=== PATIENT | male | born 1955 | race Caucasian/White ===

== ENCOUNTER 2017-02-06 06:45 | Day surgery (SDC) | payer BC ==
[~2017-02-06] VITALS: Ht 171.4 cm; Wt 106.7 kg
[~2017-02-06 06:45] MED LIST: ALBU8.5H5 IH; AMLO10TA2 PO; ASPI-728 PO; CARV25TA33 PO; CLOP75TA33 PO; ESOM40CA24 PO; FURO-35 PO; LORA-326 PO; LOSA50TA17 PO; MONT10TA15 PO; MULT-795 PO; NITR0.4T38 SL; SERT-104 PO; SIMV20TA89 PO; VITA1CAP65 PO
--- OUTSIDE RECORDS SUMMARY | 2017-02-06 06:49 | XMS REPORT | Referral Summary ---
Author Author [facility] [employer] Organization [facility] [place] Address Unknown Phone Unavailable Care Team Providers Care Town Marshal Name Role Phone Dena Muse Primary Care Physician [phone] Encounter Date(s): 08/17/15 - 08/17/15 [facility] [place] [address] [place], [place] [address] Discharge Disposition: 01-Home or Self Care Attending Physician: Ty Hwang MD Admitting Physician: Ty Hwang MD Referring Physician: Hola Heredia MD Vital Signs No data available for this section Problem List Condition Effective Dates Status Health Status Informant Allergic rhinitis Active (disorder)(Confirmed ) Angina(Confirmed) Resolved Arthritis(Confirmed) Resolved Asthma without Active status asthmaticus (disorder)(Confirmed ) Asthma(Confirmed) Resolved Benign essential Active hypertension (disorder)(Confirmed ) CAD - Coronary Resolved artery disease(Confirmed) Cardiac Resolved catheterization(Conf irmed) Cardiomyopathy(Confi Active rmed) Cortical senile Resolved cataract(Confirmed) Depression(Confirmed Resolved ) Dilated Resolved cardiomyopathy(Confi rmed) Eardrum, repair Resolved left(Confirmed) Gastroesophageal Active reflux disease (disorder)(Confirmed ) GERD(Confirmed) Resolved Glaucoma Resolved suspect(Confirmed) H/O chest < 05/21/14 Resolved pain(Confirmed) Hay fever(Confirmed) < 07/21/14 Resolved Hyperlipidemia(Confi Resolved rmed) Hypertension(Confirm Resolved ed) Impotence of organic Resolved origin (disorder)(Confirmed ) Moderate persistent Active allergic asthma(Confirmed) Obesity(Confirmed) Active patient Pigmentary glaucoma Active (disorder)(Confirmed ) Pinning, lt femur Resolved fx(Confirmed) PREGLAUCOMA, < 07/27/15 Resolved UNSPECIFIED(Confirme d) POAG (primary Active open-angle glaucoma)(Confirmed) Pure Active hypercholesterolemia (disorder)(Confirmed ) Seasonal Resolved allergies(Confirmed) Shoulder Resolved repair(Confirmed) Zonular cataract, Resolved cortical lamellar(Confirmed) Allergies, Adverse Reactions, Alerts No Known Medication Allergies Medications aspirin 81 mg oral tablet 81 mg 1 tabs, Oral, Daily, # 30 tabs, 0 Refill(s), other reason (Rx) Start Date: 02/08/16 Status: Ordered carvedilol 25 mg oral tablet 50 mg 2 tabs, Oral, BID, # 1 tabs, 0 Refill(s), other reason (Rx) Start Date: 02/08/16 Status: Ordered Centrum Silver oral tablet 1 tabs, Oral, Daily, # 30 tabs, 0 Refill(s) Start Date: 04/28/14 Status: Ordered clopidogrel 75 mg oral tablet 75 mg 1 tabs, Oral, Daily, # 30 tabs, 0 Refill(s), other reason (Rx) Start Date: 02/08/16 Status: Ordered Cozaar 100 mg oral tablet 100 mg 1 tabs, Oral, Daily, # 90 tabs, 1 Refill(s), Pharmacy: [facility] , 1 tabs Oral Daily Start Date: 12/04/15 Status: Ordered doxycycline hyclate 100 mg oral capsule 100 mg 1 caps, Oral, BID, # 20 caps, 0 Refill(s), Pharmacy: [facility] [id number], 1 caps Oral BID Start Date: 02/23/16 Stop Date: 03/24/16 Status: Ordered Dulera 200 mcg-5 mcg/inh inhalation aerosol See Instructions, 2 puffs Inhalation BID,Instr:DUE FOR APPT WITH DR MUSE, # 13 g, eRx: [id number], 2 puffs Inhalation BID,Instr:DUE FOR APPT WITH DR MUSE Start Date: 02/09/16 Status: Ordered fluticasone 50 mcg/inh nasal spray 2 sprays, Nasal, BID, # 16 g, 0 Refill(s), other reason (Rx) Start Date: 02/08/16 Status: Ordered furosemide 20 mg oral tablet 20 mg 1 tabs, Oral, Daily, # 30 tabs, 3 Refill(s), Pharmacy: [facility], 1 tabs Oral Daily Start Date: 12/09/15 Status: Ordered Imdur 30 mg oral tablet, extended release 30 mg 1 tabs, Oral, qAM, # 90 tabs, 1 Refill(s), Pharmacy: [facility]28, 1 tabs Oral qAM Start Date: 12/16/15 Status: Ordered montelukast 10 mg oral tablet 10 mg 1 tabs, Oral, qPM, # 30 tabs, 0 Refill(s), other reason (Rx) Start Date: 02/08/16 Status: Ordered NexIUM 40 mg oral powder for reconstitution, delayed release 40 mg 1 Each, Oral, Daily, # 1 Each, 0 Refill(s), other reason (Rx) Start Date: 02/08/16 Status: Ordered Nitrostat 0.4 mg sublingual tablet 0.4 mg 1 tabs, SubLingual, q5min, as needed for chest pain, # 1 bottles, 11 Refill(s), Pharmacy: [facility]28, 1 tabs SubLingual q5min,PRN:as needed for chest pain Start Date: 02/08/16 Status: Ordered Plavix 75 mg oral tablet 75 mg 1 tabs, Oral, Daily, # 30 tabs, 0 Refill(s) Start Date: 02/08/16 Status: Ordered ProAir HFA 90 mcg/inh inhalation aerosol See Instructions, 2 puffs Inhalation q4hr,Instr:FOR PRN USE PATIENT DUE FOR APPT WITH DR MUSE, # 1 Each, eRx: [facility]28, 2 puffs Inhalation q4hr,Instr:FOR PRN USE PATIENT DUE FOR APPT WITH DR MUSE Start Date: 02/03/16 Status: Ordered simvastatin 20 mg oral tablet 20 mg 1 tabs, Oral, Bedtime (once a day), # 30 tabs, 0 Refill(s), other reason ( Rx) Start Date: 02/08/16 Status: Ordered Spiriva 18 mcg inhalation capsule 18 mcg 1 Each, Inhalation, Daily, # 30 Each, 3 Refill(s), Pharmacy: [facility], 1 Each Inhalation Daily Start Date: 12/09/15 Status: Ordered Super B Complex 1 tabs, Oral, Daily, 0 Refill(s) Start Date: 04/28/14 Status: Ordered Trusopt 2% ophthalmic solution See Instructions, INSTILL 1 DROP INTO THE RIGHT EYE THREE TIMES A DAY, # 10 unknown unit, 11 Refill(s), eRx: [facility] #[id number], INSTILL 1 DROP INTO THE RIGHT EYE THREE TIMES A DAY Start Date: 09/23/14 Status: Ordered Zoloft 100 mg oral tablet 100 mg 1 tabs, Oral, Daily, # 90 tabs, 1 Refill(s), Pharmacy: [id number], 1 tabs Oral Daily Start Date: 12/16/15 Status: Ordered ZyrTEC Daily, 0 Refill(s) Start Date: 06/18/15 Status: Ordered Results No data available for this section Immunizations Vaccine Date Refusal Reason tetanus/diphth/pertuss (Tdap) adult/adol 12/31/13 influenza virus vaccine, inactivated1 09/25/14 influenza virus vaccine, live 11/19/12 pneumococcal 23-polyvalent vaccine 08/16/10 pneumococcal 23-polyvalent vaccine 09/05/05 pneumococcal 23-polyvalent vaccine 04/20/00 tetanus-diphth toxoids (Td) adult/adol 08/20/03 tetanus-diphth toxoids (Td) adult/adol 04/20/00 1Result Comment: [09/25/2014] see scanned document Procedures Procedure Date Related Diagnosis Body Site Cardiac catheterization1, 2 2013 Shoulder repair, left 1988 Pinning,femur fx, left 1986 Eardrum, repair left 1Coronary artery catheterization on 06/26/14. See description on note of . 2Prior cardiac catheterization in 2009. Social History Social History Type Response Smoking Status Never smoker Assessment and Plan No data available for this section
--- OUTSIDE RECORDS SUMMARY | 2017-02-06 06:49 | XMS REPORT | Referral Summary ---
Author Author [facility] Organization [facility] Address Unknown Phone Unavailable Care Team Providers Care Dump Motor Operator Name Role Phone Dena Muse Primary Care Physician [phone] Encounter Date(s): 03/31/16 - 03/31/16 [facility] [address] [place], [place] [address] Discharge Diagnosis: Shortness of breath Discharge Diagnosis: Bronchiectasis Discharge Diagnosis: Asthma Discharge Disposition: 01-Home or Self Care Attending Physician: Neil Mehta MD Admitting Physician: Neil Mehta MD Vital Signs Most recent to 1 oldest [Reference Range]: Peripheral Pulse 74 bpm Rate [60-100 bpm] (03/31/16 2:46 PM) Respiratory Rate 22 br/min [14-20 br/min] *HI* (03/31/16 2:46 PM) Blood Pressure 130/72 mmHg [90-140/60-90 mmHg] (03/31/16 2:46 PM) SpO2 95 % (03/31/16 2:46 PM) Problem List Condition Effective Dates Status Health [...] Daily, # 90 tabs, 1 Refill(s), Pharmacy: [facility] 2428, 1 tabs Oral Daily Start Date: 03/07/16 Status: Ordered Dulera 200 mcg-5 mcg/inh inhalation aerosol 2 puffs, Inhalation, BID, # 13 g, 6 Refill(s), Pharmacy: [facility] 2428 Start Date: 03/31/16 Status: Ordered fluticasone 50 mcg/inh nasal spray 2 sprays, Nasal, BID, # 16 g, 0 Refill(s), other reason (Rx) Start Date: 02/08/16 Status: Ordered furosemide 20 mg oral tablet 20 mg 1 tabs, Oral, Daily, # 30 tabs, 3 Refill(s), Pharmacy: [facility], 1 tabs Oral Daily Start Date: 12/09/15 Status: Ordered montelukast 10 mg oral tablet [...] pain, # 1 bottles, 11 Refill(s), Pharmacy: [facility] 2428, 1 tabs SubLingual q5min,PRN:as needed for chest pain Start Date: 02/08/16 Status: Ordered ProAir HFA 90 mcg/inh inhalation aerosol See Instructions, 2 puffs Inhalation q4hr,Instr:FOR PRN USE PATIENT DUE FOR APPT WITH DR MUSE, # 1 Each, 3 Refill(s), Pharmacy: [facility] 242 Start Date: 03/28/16 Status: Ordered simvastatin 20 mg oral tablet 20 mg 1 tabs, Oral, Bedtime (once a day), # 30 tabs, 0 Refill(s), other reason ( Rx) Start Date: 02/08/16 Status: Ordered Super B Complex 1 tabs, Oral, Daily, 0 Refill(s) Start Date: 04/28/14 Status: Ordered Trusopt 2% ophthalmic solution See Instructions, INSTILL 1 DROP INTO THE RIGHT EYE THREE TIMES A DAY, # 10 unknown unit, 11 Refill(s), eRx: [facility] #[id number], INSTILL 1 DROP INTO THE RIGHT EYE THREE TIMES A DAY Start Date: 09/23/14 Status: Ordered Zoloft 100 mg oral tablet 100 mg 1 tabs, Oral, Daily, # 90 tabs, 1 Refill(s), Pharmacy: [facility] 2427, 1 tabs Oral Daily Start Date: 12/16/15 [...] Smoking Status Never smoker Assessment and Plan Extracted from: Title: Office Visit Note Author: Neil Mehta Date: 03/31/16 Steven COLE Assessment/Plan 1.Asthma Continue with the Dulera 2.Bronchiectasis Evidence of bronchiectasis andtree and budpattern the bases raising concern foraspiration howeveraspiration by evaluation was negative. For that reason we will assess the patient with a bronchoscopy to rule out an atypical infectionsuch as a mycobacterial atypical infection. Procedure indication contraindication and alternatives were explained to patient patient verbalized understanding and is willing to proceed. Additionally will have the patientworked up forimmune deficiency with an IgG IgM and IgA levels 3.Shortness of breath Secondary to the bronchiectasis and infiltrate at the bases Orders: mometasone-formoterol, 2 puffs, Inhalation, BID, # 13 g, 6 Refill(s), Pharmacy: [facility] [id number]
--- OUTSIDE RECORDS SUMMARY | 2017-02-06 06:49 | XMS REPORT | Referral Summary ---
Author Author [facility] Organization [facility] Address Unknown Phone Unavailable Care Team Providers Care Laboratory Director Name Role Phone Dena Muse Primary Care Physician [phone] Encounter [facility] [id number] Date(s): 03/10/16 - 03/10/16 [facility] [address] [place], [place] [address] Discharge Diagnosis: Asthma Discharge Diagnosis: Recurrent pneumonia Discharge Diagnosis: Wheezing Discharge Disposition: 01-Home or Self Care Attending Physician: Neil Mehta MD Admitting Physician: Neil Mehta MD Referring Physician: Moose Muse MD Vital Signs Most recent to 1 oldest [Reference Range]: Temperature Tympanic 36.2 degC [36.6-38.1 degC] *LOW* (03/10/16 2:22 PM) Peripheral Pulse 73 bpm Rate [60-100 bpm] (03/10/16 2:22 PM) Blood Pressure 146/76 mmHg [90-140/60-90 mmHg] *HI* (03/10/16 2:22 PM) SpO2 94 % (03/10/16 2:22 PM) Problem List Condition Effective Dates Status [...] Reactions, Alerts No Known Medication Allergies Medications Asmanex HFA 200 mcg/inh inhalation aerosol 2 puffs, Inhalation, BID, # 1 Each, 0 Refill(s), samples given to patient (Rx) Start Date: 03/10/16 Status: Ordered aspirin 81 mg oral tablet 81 mg [...] Daily, # 90 tabs, 1 Refill(s), [id number], 1 tabs Oral Daily Start Date: 03/07/16 Status: Ordered fluticasone 50 mcg/inh nasal spray 2 sprays, Nasal, BID, # 16 g, 0 Refill(s), other reason (Rx) Start Date: 02/08/16 Status: Ordered furosemide 20 mg oral tablet 20 mg 1 tabs, Oral, Daily, # 30 tabs, 3 Refill(s), Pharmacy: [facility], 1 tabs Oral Daily Start Date: 12/09/15 [...] pain, # 1 bottles, 11 Refill(s), Pharmacy: [facility] 2428, 1 tabs SubLingual q5min,PRN:as needed for chest pain Start Date: 02/08/16 Status: Ordered Plavix 75 mg oral tablet 75 mg 1 tabs, Oral, Daily, # 30 tabs, 0 Refill(s) Start Date: 02/08/16 Status: Ordered ProAir HFA 90 mcg/inh inhalation aerosol See Instructions, 2 puffs Inhalation q4hr,Instr:FOR PRN USE PATIENT DUE FOR APPT WITH DR MUSE, # 1 Each, eRx: [facility] 2428, 2 puffs Inhalation q4hr,Instr:FOR PRN [...] Daily, # 30 Each, 3 Refill(s), Pharmacy: [facility], 1 Each Inhalation Daily Start Date: 12/09/15 Status: Ordered Super B Complex 1 tabs, Oral, Daily, 0 Refill(s) Start Date: 04/28/14 Status: Ordered Trusopt 2% ophthalmic solution See Instructions, INSTILL 1 DROP INTO THE RIGHT EYE THREE TIMES A DAY, # 10 unknown unit, 11 Refill(s), eRx: [facility] #[id number], INSTILL 1 DROP INTO THE RIGHT EYE THREE TIMES A DAY Start Date: 09/23/14 Status: Ordered Zoloft 100 mg oral tablet 100 mg 1 tabs, Oral, Daily, # 90 tabs, 1 Refill(s), Pharmacy: [facility] 2428, 1 tabs Oral Daily Start Date: 12/16/15 [...]
--- OUTSIDE RECORDS SUMMARY | 2017-02-06 06:49 | XMS REPORT | Referral Summary ---
Author Organization Unknown Address Unknown Phone Unavailable Care Team Providers Care Photoengraving Apprentice Name Role Phone Dena Muse Primary Care Physician [phone] Encounter RYANNE [id number] Date(s): 12/25/14 - 12/25/14 [facility], [facility], Opthalmology [address] [place], [place] [address] Discharge Diagnosis: Pigmentary glaucoma (disorder) Discharge Disposition: Home or Self Care Attending Physician: Rosana Arauz MD Admitting Physician: Rosana Arauz MD Vital Signs No data available for this section Problem List Condition Effective Dates Status Health Status Informant Allergies(Confirmed) Active Allergic rhinitis Active (disorder)(Confirmed ) Angina(Confirmed) Resolved Arthritis(Confirmed) Resolved Asthma(Confirmed) Resolved Asthma without Active status asthmaticus (disorder)(Confirmed ) Benign essential Active hypertension (disorder)(Confirmed ) CAD - Coronary Resolved artery disease(Confirmed) Cardiac Resolved catheterization(Conf irmed) Cardiomyopathy(Confi Active rmed) Congestive heart Active failure(Confirmed) Cortical senile Active cataract(Confirmed) Depression(Confirmed Resolved ) Dilated Resolved cardiomyopathy(Confi rmed) Eardrum, repair Resolved left(Confirmed) Gastroesophageal Active reflux disease (disorder)(Confirmed ) GERD(Confirmed) Resolved Glaucoma Active suspect(Confirmed) H/O chest Active pain(Confirmed) Hay fever(Confirmed) Active Hyperlipidemia(Confi Resolved rmed) Hypertension(Confirm Resolved ed) Erectile Active dysfunction(Confirme d) Impotence of organic Active origin (disorder)(Confirmed ) Obesity(Confirmed) Active patient Pigmentary glaucoma Active (disorder)(Confirmed ) Pinning, lt femur Resolved fx(Confirmed) PREGLAUCOMA, Resolved UNSPECIFIED(Confirme d) POAG (primary Active open-angle glaucoma)(Confirmed) Pure Active hypercholesterolemia (disorder)(Confirmed ) Seasonal Resolved allergies(Confirmed) Shoulder Resolved repair(Confirmed) Zonular cataract, Resolved cortical lamellar(Confirmed) Allergies, Adverse Reactions, Alerts No Known Medication Allergies Medications amLODIPine 2.5 mg oral tablet 1 tabs, Oral, Daily, # 30 tabs, 6 Refill(s), Pharmacy: [facility] #[id number] , 1 tabs Oral Daily Start Date: 06/27/14 Status: Ordered Centrum Silver oral tablet 1 tabs, Oral, Daily, # 30 tabs, 0 Refill(s) Start Date: 04/28/14 Status: Ordered Claritin 1 tabs, Oral, Daily, 0 Refill(s) Start Date: 04/28/14 Status: Ordered Coreg 25 mg oral tablet See Instructions, TAKE ONE TABLET BY MOUTH TWICE A DAY, # 180 tabs, 2 Refill(s) , eRx: [facility] #[id number], TAKE ONE TABLET BY MOUTH TWICE A DAY Special Instructions: TAKE ONE TABLET BY MOUTH TWICE A DAY Start Date: 09/11/14 Status: Ordered Cozaar 100 mg oral tablet See Instructions, TAKE ONE TABLET BY MOUTH DAILY, # 90 tabs, 1 Refill(s), eRx: [facility] #[id number], TAKE ONE TABLET BY MOUTH DAILY Special Instructions: TAKE ONE TABLET BY MOUTH DAILY Start Date: 12/08/14 Status: Ordered Dulera 200 mcg-5 mcg/inh inhalation aerosol See Instructions, INHALE TWO PUFFS INTO LUNGS TWICE A DAY, # 13 unknown unit, 5 Refill(s), eRx: [facility] #[id number], INHALE TWO PUFFS INTO LUNGS TWICE A DAY Special Instructions: INHALE TWO PUFFS INTO LUNGS TWICE A DAY Start Date: 12/19/14 Status: Ordered Ecotrin 325 mg oral delayed release tablet 1 tabs, Oral, Daily, 0 Refill(s) Start Date: 04/28/14 Status: Ordered Flonase 50 mcg/inh nasal spray See Instructions, PLACE 1 SPRAY IN EACH NOSTRIL DAILY, # 16 unknown unit, 2 Refill(s), eRx: [facility] #[id number], PLACE 1 SPRAY IN EACH NOSTRIL DAILY Special Instructions: PLACE 1 SPRAY IN EACH NOSTRIL DAILY Start Date: 11/12/14 Status: Ordered fluorometholone acetate 0.1% ophthalmic suspension See Instructions, After procedure use 1 drop QID in surgical eye for 1 week then discontinue., # 5 mL, 1 Refill(s), Pharmacy: [facility] #[id number] Special Instructions: After procedure use 1 drop QID in surgical eye for 1 week then discontinue. Start Date: 12/15/14 Stop Date: 01/02/15 Status: Ordered furosemide 20 mg oral tablet See Instructions, TAKE ONE TABLET BY MOUTH DAILY, # 30 tabs, 2 Refill(s), eRx: [facility] #[id number], TAKE ONE TABLET BY MOUTH DAILY Special Instructions: TAKE ONE TABLET BY MOUTH DAILY Start Date: 10/06/14 Status: Ordered Imdur 30 mg oral tablet, extended release 1 tabs, Oral, qAM, DUE FOR APPT WITH DR MUSE, # 30 tabs, 1 Refill(s), Pharmacy: [facility] #[id number], 1 tabs Oral qAM,x30 days,Instr:DUE FOR APPT WITH DR MUSE Special Instructions: DUE FOR APPT WITH DR MUSE Start Date: 12/22/14 Stop Date: 02/20/15 Status: Ordered NexIUM 40 mg oral delayed release capsule 1 caps, Oral, Daily, APPROVED 12/15/14 CASE# [id number], # 30 caps, 4 Refill(s), eRx : [facility] #[id number], TAKE ONE CAPSULE BY MOUTH EVERY DAY Special Instructions: APPROVED 12/15/14 CASE# [id number] Start Date: 10/21/14 Status: Ordered Nitrostat 0.4 mg sublingual tablet 1 tabs, SubLingual, q5min, as needed for chest pain, # 100 tabs, 0 Refill(s) Start Date: 04/28/14 Status: Ordered ProAir HFA 90 mcg/inh inhalation aerosol See Instructions, INHALE TWO PUFFS INTO LUNGS EVERY 4 HOURS NEEDED., # 8.5 unknown unit, 1 Refill(s), eRx: [facility] #[id number], INHALE TWO PUFFS INTO LUNGS EVERY 4 HOURS NEEDED. Special Instructions: INHALE TWO PUFFS INTO LUNGS EVERY 4 HOURS NEEDED. Start Date: 11/21/14 Status: Ordered simvastatin 20 mg oral tablet 1 tabs, Oral, Bedtime (once a day), # 30 tabs, 6 Refill(s), Pharmacy: [facility] #[id number], 1 tabs Oral Bedtime (once a day) Start Date: 08/25/14 Status: Ordered Singulair 10 mg oral tablet See Instructions, TAKE ONE TABLET BY MOUTH ONCE A DAY, # 90 tabs, 1 Refill(s), eRx: [facility] #[id number], TAKE ONE TABLET BY MOUTH ONCE A DAY Special Instructions: TAKE ONE TABLET BY MOUTH ONCE A DAY Start Date: 12/19/14 Status: Ordered Spiriva 18 mcg inhalation capsule See Instructions, INHALE THE CONTENTS OF ONE CAPSULE INTO LUNGS ONCE DAILY, USE 2 INHALATIONS FOR EACH DOSE, # 30 caps, 5 Refill(s), eRx: [facility] # [id number], INHALE THE CONTENTS OF ONE CAPSULE INTO LUNGS ONCE DAILY, USE 2 INHALATIONS FOR EACH DOSE Special Instructions: INHALE THE CONTENTS OF ONE CAPSULE INTO LUNGS ONCE DAILY, USE 2 INHALATIONS FOR EACH DOSE Start Date: 10/13/14 Status: Ordered Super B Complex 1 tabs, Oral, Daily, 0 Refill(s) Start Date: 04/28/14 Status: Ordered Trusopt 2% ophthalmic solution See Instructions, INSTILL 1 DROP INTO THE RIGHT EYE THREE TIMES A DAY, # 10 unknown unit, 11 Refill(s), eRx: [facility] #[id number], INSTILL 1 DROP INTO THE RIGHT EYE THREE TIMES A DAY Special Instructions: INSTILL 1 DROP INTO THE RIGHT EYE THREE TIMES A DAY Start Date: 09/23/14 Status: Ordered Zoloft 100 mg oral tablet See Instructions, TAKE ONE TABLET BY MOUTH EVERY DAY, # 45 tabs, 5 Refill(s), eRx: [facility] #[id number], TAKE ONE TABLET BY MOUTH EVERY DAY Special Instructions: TAKE ONE TABLET BY MOUTH EVERY DAY Start Date: 12/19/14 Status: Ordered Results No data available for this section Immunizations Vaccine Date Refusal Reason tetanus/diphth/pertuss (Tdap) adult/adol 12/31/13 influenza virus vaccine, inactivated1 09/25/14 influenza virus vaccine, live 11/19/12 pneumococcal 23-polyvalent vaccine 08/16/10 pneumococcal 23-polyvalent vaccine 09/05/05 pneumococcal 23-polyvalent vaccine 04/20/00 tetanus-diphth toxoids (Td) adult/adol 08/20/03 tetanus-diphth toxoids (Td) adult/adol 04/20/00 1Result Comment: [09/25/2014] see scanned document Procedures Procedure Date Related Diagnosis Body Site Trabeculoplasty by laser surgery, 1 or more 12/25/14 sessions (defined treatment series) Cardiac catheterization1, 2 2013 Shoulder repair, left 1988 Pinning,femur fx, left 1986 Eardrum, repair left 1Coronary artery catheterization on 06/26/14. See description on note of . 2Prior cardiac catheterization in 2009. Social History Social History Type Response Smoking Status Never smoker Assessment and Plan Extracted from: Title: Ambulatory Patient Education Author: Rosana Arauz MD Date: 12/25/14 Ophthalmology Glaucoma Glaucoma is a condition of high pressure inside the eyes. There are several forms of glaucoma. The pressure in the eye is raised because fluid (aqueous ) within the eye can not get out through the normal drainage system. Below are the different forms of glaucoma. Chronic open-angle glaucoma . This is when the fluid in the eye cannot get through the drainage system. It usually affects both eyes. The best way to understand chronic open angle glaucoma is to think of the tires on your car. When they are over-inflated with air, the light truck driver is not aware that there is a problem. However, the rubber on the tires is being worn out faster than normal. Similarly, chronic high pressure in the eyes causes the nerves of the retina and optic nerve to be damaged. When this happens slowly and over time, there are no symptoms. Closed angle glaucoma or acute angle closure glaucoma . This is when the fluid in the eye cannot get to the drainage system. The pressure in the eye rises very high (3 to 4 times normal). This causes extreme pain and vision loss in the affected eye. Attacks are sudden and often happen in one eye at a time. However, they can happen in both at the same time. If there is an attack of acute angle closure in one eye, the risk of an attack in the other eye is very high. Primary glaucoma . This term is used when glaucoma is not caused by another disease. CAUSES Chronic Open Angle Glaucoma This form is not usually related to other diseases (primary ). However, there are forms of this type of glaucoma that are related to other diseases ( secondary ) including: Congenital glaucoma. This means that you are born with the disease. Certain diseases of the eye (inflammation, some types of cataracts and lens changes, having too much pigment in the eyes, certain diseases of the cornea and tumors of the eye). Certain drugs and eye drops. Traumatic injuries. Abnormal blood vessels that form as a result of other diseases, especially diabetes. Certain other diseases in the body. Acute Angle Closure Glaucoma Far-sightedness (hyperopia ). The eyes are usually shorter in length and have a narrower anatomic opening to the drainage system inside the eye. Drugs that cause dilation of the pupils as a side affect. Always check the label of drugs for warnings about the risk of glaucoma with their use. Certain eye drops that can enlarge (dilate ) the pupils. This is true even with drops used in the doctors office to look at your eyes. SYMPTOMS Chronic Open Angle Glaucoma Early in the disease there are no symptoms at all. If left untreated, the disease will get worse. The following symptoms may happen: Loss of side vision usually near the nose. This symptom is rarely noticed by people with chronic open angle glaucoma. By the time this happens, the disease is usually well advanced. Steady loss of side vision in all directions progressing to "tunnel vision. " This is like looking through a toilet roll tube and only being able to see what is in the center of whatever you are looking at. Eventual total loss of vision in the affected eye(s) Acute Angle Closure Glaucoma Severe pain in the affected eye associated with clouded vision. Severe headache in the area around the eye. Feeling sick to your stomach (nausea ) and throwing up (vomiting ). DIAGNOSIS Primary Chronic Open Angle Glaucoma This form of glaucoma has no symptoms until very late in the disease. Therefore , it is detected only during an eye exam by an advertising specialist. It is important to have your eyes looked at by a specialist at least once a year after the age of 40. If the pressure in the eye is high, it does not necessarily mean that there is glaucoma. In such cases, an rotary operator may choose to follow the eye pressures carefully over a period of time. They may not begin treatment until other signs of actual damage appear. Some of the secondary open angle glaucomas do cause symptoms. In congenital glaucoma for instance, new born babies eyes can be enlarged. The baby may cry all of the time due to the pain of the increased pressure. Acute Angle Closure Glaucoma People with this type of glaucoma need to get help right away when the attack comes on because it is so painful. The diagnosis is made by an eye exam by an rotary operator. He or she will measure the pressure in the affected eye(s). TREATMENT Primary Chronic Open Angle Glaucoma Eye drops and medicine by mouth (oral ), alone or in combination, may be given. This depends on the how bad the disease is and the degree of damage. Laser treatments may help in more severe cases. Surgery may be needed. Acute Angle Closure Glaucoma is treated very aggressively. The longer the attack lasts, the greater the chance of permanent vision loss. Generally, it is important to get the pressure under control within 24 hours. This is to avoid permanent damage to the affected eye. Powerful eye drop medication may be used as often as every 10 minutes. Medicine given by mouth, injection or through the vein (intravenously ). These medicines are used to both open the blockage to the eye's drainage system and to lessen the production of the fluid inside the eye. After pressure is controlled and to avoid future attacks in both the same eye and the unaffected eye, surgery is needed to make a permanent small opening in the colored portion of the eye (iris ). This allows the aqueous fluid to have lasting access to the eye's internal drainage system. This surgery can be done in the hospital, or it can be performed in an outpatient setting using a laser. SEEK MEDICAL CARE IF: You are over 40 years of age and have never had your eye pressure measured. You have sudden, severe pain in one eye associated with drop in vision. You have a headache, feel sick to your stomach (nausea ) and throw up ( vomit ). SEEK IMMEDIATE MEDICAL CARE IF: You develop severe pain in the affected eye. You have problems with your vision. You have a bad headache in the area around the eye. You develop nausea and vomiting. You have the same or similar symptoms in the other eye. Document Released: 10/30/2006 Document Revised: 04/30/2013 Document Reviewed: ExitCare Patient Information 2014 [employer]. No follow up information was provided. Referrals to Other Providers Referred by: Rosana Arauz MD
--- OUTSIDE RECORDS SUMMARY | 2017-02-06 06:49 | XMS REPORT | Referral Summary ---
Author Author [facility] Organization [facility] Address Unknown Phone Unavailable Care Team Providers Care Director Project Management Name Role Phone Dena Muse Primary Care Physician [phone] Encounter [facility] [id number] Date(s): 06/18/15 - 06/18/15 [facility] Op[facility]mology [address] [place], [place] [address] Discharge Diagnosis: Glaucoma, pigmentary Discharge Diagnosis: Cortical senile cataract Discharge Diagnosis: Glaucoma suspect Discharge Disposition: 01-Home or Self Care Attending Physician: Rosana Arauz [...] Impotence of organic Resolved origin (disorder)(Confirmed ) Obesity(Confirmed) Active patient Pigmentary glaucoma Active (disorder)(Confirmed ) Pinning, lt femur Resolved fx(Confirmed) PREGLAUCOMA, < 07/27/15 Resolved UNSPECIFIED(Confirme d) POAG (primary Active open-angle glaucoma)(Confirmed) Pure Active hypercholesterolemia (disorder)(Confirmed ) Seasonal Resolved allergies(Confirmed) Shoulder Resolved repair(Confirmed) Zonular cataract, Resolved cortical lamellar(Confirmed) Allergies, Adverse Reactions, Alerts No Known Medication Allergies Medications amLODIPine 2.5 mg oral tablet 2.5 mg 1 tabs, Oral, Daily, # 30 tabs, 2 Refill(s), Pharmacy: [facility] # [id number], 1 tabs Oral Daily Start Date: 07/23/15 Status: Ordered carvedilol 25 mg oral tablet 25 mg 1 tabs, Oral, TID, # 60 tabs, 5 Refill(s), Pharmacy: [facility] # [id number], 1 tabs Oral TID Start Date: 08/12/15 Status: Ordered Centrum Silver oral tablet 1 tabs, Oral, Daily, # 30 tabs, 0 Refill(s) Start Date: 04/28/14 Status: Ordered Coreg 25 mg oral tablet See Instructions, TAKE ONE TABLET BY MOUTH TWICE A DAY, # 180 tabs, eRx: [facility] #[id number], TAKE ONE TABLET BY MOUTH TWICE A DAY Start Date: 06/29/15 Status: Ordered Cozaar 100 mg oral tablet See Instructions, TAKE ONE TABLET BY MOUTH DAILY, # 90 tabs, 1 Refill(s), Pharmacy: [place] [id number], TAKE ONE TABLET BY MOUTH DAILY Start Date: 09/07/15 Status: Ordered Dulera 200 mcg-5 mcg/inh inhalation aerosol See Instructions, INHALE TWO PUFFS INTO LUNGS TWICE A DAY, # 13 unknown unit, 4 Refill(s), eRx: [facility] #[id number], INHALE TWO PUFFS INTO LUNGS TWICE A DAY Start Date: 08/31/15 Status: Ordered Ecotrin 325 mg oral delayed release tablet 1 tabs, Oral, Daily, 0 Refill(s) Start Date: 04/28/14 Status: Ordered furosemide 20 mg oral tablet See Instructions, TAKE ONE TABLET BY MOUTH DAILY, # 30 tabs, 4 Refill(s), eRx: [facility] #[id number], TAKE ONE TABLET BY MOUTH DAILY Start Date: 07/09/15 Status: Ordered Imdur 30 mg oral tablet, extended release 30 mg 1 tabs, Oral, qAM, # 90 tabs, 1 Refill(s), Pharmacy: [id number], 1 tabs Oral qAM Start Date: 09/17/15 Stop Date: 11/16/15 Status: Ordered NexIUM 40 mg oral delayed release capsule 40 mg 1 caps, Oral, Daily, APPROVED THRU 04/23/2016 APPROVAL# [id number], # 90 caps , 4 Refill(s), Pharmacy: [facility] #[id number], 1 caps Oral Daily,Instr: APPROVED THRU 04/23/2016 APPROVAL# [id number] Start Date: 04/30/15 Status: Ordered Nitrostat 0.4 mg sublingual tablet 1 tabs, SubLingual, q5min, as needed for chest pain, # 100 tabs, 0 Refill(s) Start Date: 04/28/14 Status: Ordered ProAir HFA 90 mcg/inh inhalation aerosol See Instructions, INHALE TWO PUFFS INTO LUNGS EVERY 4 HOURS NEEDED., # 1 Each , 6 Refill(s), Pharmacy: [facility] #[id number] Start Date: 03/06/15 Status: Ordered simvastatin 20 mg oral tablet See Instructions, TAKE ONE TABLET BY MOUTH EVERY NIGHT AT BEDTIME, # 30 tabs, 8 Refill(s), eRx: [facility] #[id number], TAKE ONE TABLET BY MOUTH EVERY NIGHT AT BEDTIME Start Date: 03/24/15 Status: Ordered Singulair 10 mg oral tablet See Instructions, TAKE ONE TABLET BY MOUTH ONCE A DAY, # 90 tabs, 1 Refill(s), eRx: [facility] #[id number], TAKE ONE TABLET BY MOUTH ONCE A DAY Start Date: 06/17/15 Status: Ordered Spiriva 18 mcg inhalation capsule See Instructions, INHALE THE CONTENTS OF ONE CAPSULE INTO LUNGS ONCE DAILY, USE 2 INHALATIONS FOR EACH DOSE, # 30 caps, 6 Refill(s), Pharmacy: [id number], INHALE THE CONTENTS OF ONE CAPSULE INTO LUNGS ONCE DAILY, USE 2 INHALATIONS FOR EACH... Start Date: 09/07/15 Status: Ordered Super B Complex 1 tabs, Oral, Daily, 0 Refill(s) Start Date: 04/28/14 Status: Ordered Trusopt 2% ophthalmic solution See Instructions, INSTILL 1 DROP INTO THE RIGHT EYE THREE TIMES A DAY, # 10 unknown unit, 11 Refill(s), eRx: [facility] #[id number], INSTILL 1 DROP INTO THE RIGHT EYE THREE TIMES A DAY Start Date: 09/23/14 Status: Ordered Zoloft 100 mg oral tablet 100 mg 1 tabs, Oral, Daily, # 90 tabs, 1 Refill(s), Pharmacy: [id number], 1 tabs Oral Daily Start Date: 09/07/15 Status: Ordered ZyrTEC Daily, 0 Refill(s) Start [...] Patient Education Author: Rosana Arauz MD Date: 06/18/15 Ophthalmology Glaucoma Glaucoma happens when the fluid pressure in the eyeball is too high. The pressure cannot stay high for too long, or the eyeball may become damaged. Signs of glaucoma include: Having a hard time seeing in a dark room after being in a bright one. Having trouble seeing things out to the sides of you. Blurry sight. Seeing bright white lights or colors in front of your eyes. Headaches. Feeling sick to your stomach (nauseous) or throwing up (vomiting). Sudden vision loss. Glaucoma testing is an important part of taking care of your eyesight. HOME CARE Always use your eyedrops or pills as told by your doctor. Do not run out. Do not go away from home without your eyedrops or pills. Keep your appointments. Always tell a new doctor that you have glaucoma and how long you have had it. Tell the doctor about the eyedrops and pills you take. Do not use eyedrops or pills that have not been prescribed by your doctor. GET HELP RIGHT AWAY IF: You develop severe pain in the affected eye. You develop vision problems. You develop a bad headache in the area around the eye. You feel sick to your stomach or throw up. You start to have problems with the other eye. MAKE SURE YOU: Understand these instructions. Will watch your condition. Will get help right away if you are not doing well or get worse. Document Released: 08/08/2009 Document Revised: 01/21/2013 Document Reviewed: ExitCare Patient Information 2015 [employer]. This information is not intended to replace advice given to you by your health care provider. Make sure you discuss any questions you have with your health care provider. No follow up information was provided. Referrals to Other Providers Referred by: Rosana Arauz MD
--- OUTSIDE RECORDS SUMMARY | 2017-02-06 06:49 | XMS REPORT | Referral Summary ---
Author Author [facility] Organization [facility] Address Unknown Phone Unavailable Care Team Providers Care Patient Transition Specialist Name Role Phone Dena Muse Primary Care Physician [phone] Encounter VC Date(s): 10/14/15 - 10/14/15 [facility] [address] [place] [address] Discharge Disposition: 01-Home or Self Care Attending Physician: Aidan Camejo APRN Admitting Physician: Aidan Camejo APRN Vital Signs Most recent to 1 oldest [Reference Range]: Peripheral Pulse 73 bpm Rate [60-100 bpm] (10/14/15 4:06 PM) Blood Pressure 138/80 mmHg [90-140/60-90 mmHg] (10/14/15 4:06 PM) SpO2 97 % (10/14/15 4:06 PM) Problem List Condition Effective Dates Status [...] Resolved Glaucoma Resolved suspect(Confirmed) H/O chest < 7/14 Resolved pain(Confirmed) Hay fever(Confirmed) < //14 Resolved Hyperlipidemia(Confi Resolved rmed) Hypertension(Confirm Resolved ed) [...] Daily, # 30 tabs, 2 Refill(s), Pharmacy: [facility] # [id number], 1 tabs Oral Daily Start Date: 07/23/15 Status: Ordered carvedilol 25 mg oral tablet 25 mg 1 tabs, Oral, TID, # 60 tabs, 5 Refill(s), Pharmacy: [facility] # [id number], 1 tabs Oral TID Start Date: 08/12/15 Status: Ordered cefdinir 300 mg oral capsule 300 mg 1 caps, Oral, q12hr, X 10 days, # 20 caps, 0 Refill(s), Pharmacy: [place] [id number], 1 caps Oral q12hr,x10 days Start Date: 10/14/15 Stop Date: 10/24/15 Status: Ordered Centrum Silver oral tablet 1 tabs, Oral, Daily, # 30 tabs, 0 Refill(s) Start Date: 04/28/14 Status: Ordered Coreg 25 mg oral tablet See Instructions, TAKE ONE TABLET BY MOUTH TWICE A DAY, # 180 tabs, eRx: [facility] #[id number], TAKE ONE TABLET BY MOUTH TWICE A DAY Start Date: 06/29/15 Status: Ordered Cozaar 100 mg oral tablet See Instructions, TAKE ONE TABLET BY MOUTH DAILY, # 90 tabs, 1 Refill(s), Pharmacy: [place] [id number], TAKE ONE TABLET BY MOUTH DAILY Start Date: 09/07/15 Status: Ordered Dulera 200 mcg-5 mcg/inh inhalation aerosol See Instructions, INHALE TWO PUFFS INTO LUNGS TWICE A DAY, # 13 unknown unit, 4 Refill(s), eRx: [facility] #[id number], INHALE TWO PUFFS INTO LUNGS TWICE A DAY Start Date: 08/31/15 Status: Ordered Ecotrin 325 mg oral delayed release tablet 1 tabs, Oral, Daily, 0 Refill(s) Start Date: 04/28/14 Status: Ordered furosemide 20 mg oral tablet See Instructions, TAKE ONE TABLET BY MOUTH DAILY, # 30 tabs, 4 Refill(s), eRx: [facility] #[id number], TAKE ONE TABLET BY MOUTH DAILY Start Date: 07/09/15 Status: Ordered Imdur 30 mg oral tablet, extended release 30 mg 1 tabs, Oral, qAM, # 90 tabs, 1 Refill(s), Pharmacy: [facility], 1 tabs Oral qAM Start Date: 09/17/15 Stop Date: 11/16/15 Status: Ordered NexIUM 40 mg oral delayed release capsule 40 mg 1 caps, Oral, Daily, APPROVED THRU 04/23/2016 APPROVAL# [id number], # 90 caps , 4 Refill(s), Pharmacy: [facility] #[id number], 1 caps Oral Daily,Instr: APPROVED THRU 04/23/2016 APPROVAL# [id number] Start Date: 04/30/15 Status: Ordered Nitrostat 0.4 mg sublingual tablet 1 tabs, SubLingual, q5min, as needed for chest pain, # 100 tabs, 0 Refill(s) Start Date: 04/28/14 Status: Ordered ProAir HFA 90 mcg/inh inhalation aerosol See Instructions, INHALE TWO PUFFS INTO LUNGS EVERY 4 HOURS NEEDED., # 1 Each , 6 Refill(s), Pharmacy: [facility] #[id number] Start Date: 03/06/15 Status: Ordered simvastatin 20 mg oral tablet See Instructions, TAKE ONE TABLET BY MOUTH EVERY NIGHT AT BEDTIME, # 30 tabs, 8 Refill(s), eRx: [facility] #[id number], TAKE ONE TABLET BY MOUTH EVERY NIGHT AT BEDTIME Start Date: 03/24/15 Status: Ordered Singulair 10 mg oral tablet See Instructions, TAKE ONE TABLET BY MOUTH ONCE A DAY, # 90 tabs, 1 Refill(s), eRx: [facility] #[id number], TAKE ONE TABLET BY MOUTH ONCE A DAY Start Date: 06/17/15 Status: Ordered Spiriva 18 mcg inhalation capsule See Instructions, INHALE THE CONTENTS OF ONE CAPSULE INTO LUNGS ONCE DAILY, USE 2 INHALATIONS FOR EACH DOSE, # 30 caps, 6 Refill(s), Pharmacy: [id number], INHALE THE CONTENTS OF ONE CAPSULE INTO LUNGS ONCE DAILY, USE 2 INHALATIONS FOR EACH... Start Date: 09/07/15 Status: Ordered Super B Complex 1 tabs, Oral, Daily, 0 Refill(s) Start Date: 04/28/14 Status: Ordered Trusopt 2% ophthalmic solution See Instructions, INSTILL 1 DROP INTO THE RIGHT EYE THREE TIMES A DAY, # 10 unknown unit, 11 Refill(s), eRx: [facility] #[id number], INSTILL 1 DROP INTO THE RIGHT EYE THREE TIMES A DAY Start Date: 09/23/14 Status: Ordered Zithromax Z-Khanh 250 mg oral tablet 1 packets, Oral, Daily, as directed on package labeling, X 5 days, # 6 tabs, 0 Refill(s), Pharmacy: [facility], 1 packets Oral Daily,x5 days,Instr: as directed on package labeling Start Date: 10/14/15 Stop Date: 10/19/15 Status: Ordered Zoloft 100 mg oral tablet 100 mg 1 tabs, Oral, Daily, # 90 tabs, 1 Refill(s), Pharmacy: [facility], 1 tabs Oral Daily Start Date: 09/07/15 [...]
--- OUTSIDE RECORDS SUMMARY | 2017-02-06 06:49 | XMS REPORT | Referral Summary ---
Author Author [facility] Organization [facility] Address Unknown Phone Unavailable Care Team Providers Care Allied Health Professional Name Role Phone Dena Muse Primary Care Physician [phone] Encounter Date(s): 04/30/15 - 04/30/15 [facility] [address] [place] [address] Discharge Diagnosis: Encounter for removal of sutures Discharge Diagnosis: GERD Discharge Diagnosis: Hyperlipidemia Discharge Diagnosis: Benign hypertension Discharge Disposition: 01-Home or Self Care Attending Physician: Moose Muse MD Admitting Physician: Moose Muse MD Vital Signs Most recent to 1 oldest [Reference Range]: Temperature Tympanic 36.7 degC [36.6-38.1 degC] (04/30/15 11:18 AM) Peripheral Pulse 68 bpm Rate [60-100 bpm] (04/30/15 11:18 AM) Blood Pressure 120/67 mmHg [90-140/60-90 mmHg] (04/30/15 11:18 AM) Problem List Condition Effective Dates Status Health [...] Resolved Glaucoma Resolved suspect(Confirmed) H/O chest < 7/9/14 Resolved pain(Confirmed) Hay fever(Confirmed) < 9//14 Resolved Hyperlipidemia(Confi Resolved rmed) Hypertension(Confirm Resolved ed) [...] mg 1 tabs, Oral, Daily, # 30 Each, 2 Refill(s), Pharmacy: [place] [id number], 1 tabs Oral Daily Start Date: 10/28/15 Status: Ordered carvedilol 25 mg oral tablet 25 mg 1 tabs, Oral, TID, # 60 tabs, 5 Refill(s), Pharmacy: [facility] # [id number], 1 tabs Oral TID Start Date: 08/12/15 Status: Ordered Centrum Silver oral tablet 1 tabs, Oral, Daily, # 30 tabs, 0 Refill(s) Start Date: 04/28/14 Status: Ordered Coreg 25 mg oral tablet See Instructions, TAKE ONE TABLET BY MOUTH TWICE A DAY, # 180 tabs, eRx: [facility] #[id number], TAKE ONE TABLET BY MOUTH TWICE A DAY Start Date: 06/29/15 Status: Ordered Cozaar 100 mg oral tablet See Instructions, TAKE ONE TABLET BY MOUTH DAILY, # 90 tabs, 1 Refill(s), Pharmacy: [facility], TAKE ONE TABLET BY MOUTH DAILY Start Date: 09/07/15 Status: Ordered Dulera 200 mcg-5 mcg/inh inhalation aerosol See Instructions, INHALE TWO PUFFS INTO LUNGS TWICE A DAY, # 13 unknown unit, 4 Refill(s), eRx: [facility] #[id number], INHALE TWO PUFFS INTO LUNGS TWICE A DAY Start Date: 08/31/15 Status: Ordered Ecotrin 325 mg oral delayed release tablet 1 tabs, Oral, Daily, 0 Refill(s) Start Date: 04/28/14 Status: Ordered furosemide 20 mg oral tablet See Instructions, TAKE ONE TABLET BY MOUTH DAILY, # 30 tabs, 4 Refill(s), eRx: [facility] #[id number], TAKE ONE TABLET BY MOUTH DAILY Start Date: 07/09/15 Status: Ordered Imdur 30 mg oral tablet, extended release 30 mg 1 tabs, Oral, qAM, # 90 tabs, 1 Refill(s), Pharmacy: [facility], 1 tabs Oral qAM Start Date: 09/17/15 Stop Date: 11/16/15 Status: Ordered NexIUM 40 mg oral delayed release capsule 40 mg 1 caps, Oral, Daily, APPROVED THRU 04/23/2016 APPROVAL# [id number], # 90 caps , 4 Refill(s), Pharmacy: [facility] #[id number], 1 caps Oral Daily,Instr: APPROVED THRU 04/23/2016 APPROVAL# [id number] Start Date: 04/30/15 Status: Ordered Nitrostat 0.4 mg sublingual tablet 1 tabs, SubLingual, q5min, as needed for chest pain, # 100 tabs, 0 Refill(s) Start Date: 04/28/14 Status: Ordered ProAir HFA 90 mcg/inh inhalation aerosol See Instructions, INHALE TWO PUFFS INTO LUNGS EVERY 4 HOURS NEEDED., # 1 Each , 6 Refill(s), Pharmacy: [facility] #[id number] Start Date: 03/06/15 Status: Ordered simvastatin 20 mg oral tablet See Instructions, TAKE ONE TABLET BY MOUTH EVERY NIGHT AT BEDTIME, # 30 tabs, 8 Refill(s), eRx: [facility] #[id number], TAKE ONE TABLET BY MOUTH EVERY NIGHT AT BEDTIME Start Date: 03/24/15 Status: Ordered Singulair 10 mg oral tablet See Instructions, TAKE ONE TABLET BY MOUTH ONCE A DAY, # 90 tabs, 1 Refill(s), eRx: [facility] #[id number], TAKE ONE TABLET BY MOUTH ONCE A DAY Start Date: 06/17/15 Status: Ordered Spiriva 18 mcg inhalation capsule See Instructions, INHALE THE CONTENTS OF ONE CAPSULE INTO LUNGS ONCE DAILY, USE 2 INHALATIONS FOR EACH DOSE, # 30 caps, 6 Refill(s), Pharmacy: [facility], INHALE THE CONTENTS OF ONE CAPSULE INTO LUNGS ONCE DAILY, USE 2 INHALATIONS FOR EACH... Start Date: 09/07/15 Status: Ordered Super B Complex 1 tabs, Oral, Daily, 0 Refill(s) Start Date: 04/28/14 Status: Ordered Trusopt 2% ophthalmic solution See Instructions, INSTILL 1 DROP INTO THE RIGHT EYE THREE TIMES A DAY, # 10 unknown unit, 11 Refill(s), eRx: [facility] #[id number], INSTILL 1 DROP INTO THE RIGHT EYE THREE TIMES A DAY Start Date: 09/23/14 Status: Ordered Zoloft 100 mg oral tablet 100 mg 1 tabs, Oral, Daily, # 90 tabs, 1 Refill(s), Pharmacy: [id number], 1 tabs Oral Daily Start Date: 09/07/15 [...] smoker Assessment and Plan Extracted from: Title: Suture removal Author: Moose Muse MD Date: 05/01/15 Assessment/Plan Encounter for removal of sutures Orders: esomeprazole, 40 mg 1 caps, Oral, Daily, APPROVED THRU 04/23/2016 APPROVAL# [id number], # 90 caps, 4 Refill(s), Pharmacy: [facility] #[id number], 1 caps Oral Daily,Instr:APPROVED THRU 04/23/2016 APPROVAL# [id number]
--- OUTSIDE RECORDS SUMMARY | 2017-02-06 06:50 | XMS REPORT | Referral Summary ---
Author Author [facility] Organization [facility] Address Unknown Phone Unavailable Care Team Providers Care Trouble Operator Name Role Phone Dena Muse Primary Care Physician [phone] Encounter Date(s): 08/01/16 - 08/01/16 [facility] [address] [place] [address] Discharge Diagnosis: Allergic rhinitis Discharge Diagnosis: Obesity Discharge Diagnosis: CAD (coronary artery disease) Discharge Diagnosis: Pure hypercholesterolemia Discharge Diagnosis: Peripheral edema Discharge Diagnosis: Gastroesophageal reflux disease Discharge Diagnosis: Benign essential hypertension Discharge Diagnosis: Asthma without status asthmaticus Discharge Disposition: 01-Home or Self Care Attending Physician: Moose Muse MD Admitting Physician: Moose Muse MD Vital Signs Most recent to 1 oldest [Reference Range]: Temperature Tympanic 35.6 degC [36.6-38.1 degC] *LOW* (08/01/16 4:17 PM) Peripheral Pulse 70 bpm Rate [60-100 bpm] (08/01/16 4:17 PM) Blood Pressure 120/66 mmHg [90-140/60-90 mmHg] (08/01/16 4:17 PM) Problem List Condition Effective Dates Status [...] Impotence of organic Resolved origin (disorder)(Confirmed ) Methicillin Active resistant Staphylococcus aureus(Confirmed)1 Moderate persistent Active allergic asthma(Confirmed) Obesity(Confirmed) Active patient Pigmentary glaucoma Active (disorder)(Confirmed ) Pinning, lt femur Resolved fx(Confirmed) PREGLAUCOMA, < 07/27/15 Resolved UNSPECIFIED(Confirme d) POAG (primary Active open-angle glaucoma)(Confirmed) Pure Active hypercholesterolemia (disorder)(Confirmed ) Seasonal Resolved allergies(Confirmed) Shoulder Resolved repair(Confirmed) Zonular cataract, Resolved cortical lamellar(Confirmed) 1Bronch Wash from NOT FOUND collected 04/14/16 8:30:00 CDT Allergies, Adverse Reactions, Alerts No Known Medication Allergies Medications Asmanex HFA 200 mcg, Inhalation, BID, 0 Refill(s) Start Date: 04/14/16 Status: Ordered aspirin 81 mg oral tablet [...] reason (Rx) Start Date: 02/08/16 Status: Ordered codeine-guaiFENesin 6.3 mg-100 mg/5 mL oral liquid 10 mL, Oral, Bedtime (once a day), # 240 mL, 0 Refill(s), called to pharmacy (Rx ) Start Date: 06/03/16 Status: Ordered Coreg 25 mg oral tablet 50 mg 2 tabs, Oral, BID, # 60 tabs, 0 Refill(s) Start Date: 04/14/16 Status: Ordered Cozaar 100 mg oral tablet 100 mg 1 tabs, Oral, Daily, # 90 tabs, 1 Refill(s), Pharmacy: [id number], 1 tabs Oral Daily Start Date: 03/07/16 Status: Ordered Dulera 200 mcg-5 mcg/inh inhalation aerosol 2 puffs, Inhalation, BID, # 13 g, 6 Refill(s), Pharmacy: [place] [address] Start Date: 03/31/16 Status: Ordered fluticasone 50 mcg/inh nasal spray 2 sprays, Nasal, BID, # 16 g, 0 Refill(s), other reason (Rx) Start Date: 02/08/16 Status: Ordered furosemide 20 mg oral tablet See Instructions, TAKE ONE TABLET BY MOUTH ONCE DAILY, # 90 tabs, eRx: [place] [id number], TAKE ONE TABLET BY MOUTH ONCE DAILY Start Date: 07/11/16 Status: Ordered Miscellaneous DME DME Item Handheld variable speed precussor for CPT DX: J47.9 JOSS: 99, See Instructions, # 1 Each, 0 Refill(s), Supply Start Date: 06/02/16 Status: Ordered Miscellaneous DME DME Item Acapella - [place] Pt. to use as instructed by physician. Dx: J47.9 JOSS: 99 VCHM, See Instructions, # 1 Each, 0 Refill(s), Supply Start Date: 06/02/16 Status: Ordered montelukast 10 mg oral tablet See Instructions, TAKE ONE TABLET BY MOUTH ONCE DAILY, # 90 tabs, eRx: [place] [address], TAKE ONE TABLET BY MOUTH ONCE DAILY Start Date: 06/13/16 Status: Ordered NexIUM 40 mg oral powder for reconstitution, delayed release 40 mg 1 Each, Oral, Daily, # 1 Each, 0 Refill(s), other reason (Rx) Start Date: 02/08/16 Status: Ordered Nitrostat 0.4 mg sublingual tablet 0.4 mg 1 tabs, SubLingual, q5min, as needed for chest pain, # 1 bottles, 11 Refill(s), Pharmacy: [place] [address], 1 tabs SubLingual q5min,PRN:as needed for chest pain Start Date: 02/08/16 Status: Ordered ProAir HFA 90 mcg/inh inhalation aerosol See Instructions, 2 puffs Inhalation q4hr,Instr:FOR PRN USE, # 1 Each, 6 Refill( s), Pharmacy: [place] [address] Start Date: 04/26/16 Status: Ordered sertraline 100 mg oral tablet See Instructions, TAKE ONE TABLET BY MOUTH ONCE DAILY, # 90 tabs, eRx: [facility], TAKE ONE TABLET BY MOUTH ONCE DAILY Start Date: 06/06/16 Status: Ordered simvastatin 20 mg oral tablet See Instructions, TAKE ONE TABLET BY MOUTH ONCE DAILY, # 90 tabs, eRx: [facility], TAKE ONE TABLET BY MOUTH ONCE DAILY Start Date: 06/20/16 Status: Ordered Super B Complex 1 tabs, Oral, Daily, 0 Refill(s) Start Date: 04/28/14 Status: Ordered Trusopt 2% ophthalmic solution See Instructions, INSTILL 1 DROP INTO THE RIGHT EYE THREE TIMES A DAY, # 10 unknown unit, 11 Refill(s), eRx: [facility] #[id number], INSTILL 1 DROP INTO THE RIGHT EYE THREE TIMES A DAY Start Date: 09/23/14 Status: Ordered ZyrTEC 10 mg, Oral, Daily, 0 Refill(s) Start Date: 06/18/15 Status: Ordered Results No data available for this section Immunizations Vaccine Date Refusal Reason tetanus/diphth/pertuss (Tdap) adult/adol 12/31/13 influenza virus vaccine, inactivated 08/01/16 influenza virus vaccine, inactivated1 09/25/14 influenza virus vaccine, live 11/19/12 pneumococcal 23-polyvalent vaccine 08/16/10 pneumococcal 23-polyvalent vaccine 09/05/05 pneumococcal 23-polyvalent vaccine 04/20/00 tetanus-diphth toxoids (Td) adult/adol 08/20/03 tetanus-diphth toxoids (Td) adult/adol 04/20/00 1Result Comment: [09/25/2014] see scanned document Procedures Procedure Date Related Diagnosis Body Site Bronchoscopy - SN1 04/14/16 Cardiac catheterization2, 3 2013 Shoulder repair, left 1988 Left femur pin removed 1987 left femur repair & pinned 1986 Pinning,femur fx, left 1986 cataract laser surgery with stent placement Eardrum, repair left 1auto-populated from documented surgical case 2Coronary artery catheterization on 06/26/14. See description on note of . 3Prior cardiac catheterization in 2009. Social History Social History Type Response Smoking Status Never smoker Assessment and Plan Extracted from: Title[facility] Author: Moose Muse MD Date: 08/01/16 Impression and Plan Diagnosis Allergic rhinitis (YUG38-JK J30.9, Discharge, Medical). Asthma without status asthmaticus (QAU77-TL J45.909, Discharge, Medical). Benign essential hypertension (HRS04-BA I10, Discharge, Medical). CAD (coronary artery disease) (MWG31-MG I25.10, Discharge, Medical). Gastroesophageal reflux disease (VBL36-EN K21.9, Discharge, Medical). Obesity (BYV80-XQ E66.9, Discharge, Medical). Peripheral edema (RUW77-YI R60.9, Discharge, Medical). Pure hypercholesterolemia (GPN14-XK E78.0, Discharge, Medical). Orders Orders (Selected) Outpatient Orders Future (On Hold) BMP: Fasting Lipid Profile: .
--- OUTSIDE RECORDS SUMMARY | 2017-02-06 06:50 | XMS REPORT | Referral Summary ---
Author Author [facility] Organization [facility] Address Unknown Phone Unavailable Care Team Providers Care Infection Preventionist Name Role Phone Dena Muse Primary Care Physician [phone] Encounter Date(s): 06/02/16 - 06/02/16 [facility] [address] [place], [place] [address] Discharge Diagnosis: Pneumonia Discharge Diagnosis: Cough Discharge Disposition: 01-Home or Self Care Attending Physician: Neil Mehta MD Admitting Physician: Neil Mehta MD Vital Signs Most recent to 1 oldest [Reference Range]: Peripheral Pulse 75 bpm Rate [60-100 bpm] (06/02/16 2:18 PM) Respiratory Rate 22 br/min [14-20 br/min] *HI* (06/02/16 2:18 PM) Blood Pressure 116/60 mmHg [90-140/60-90 mmHg] (06/02/16 2:18 PM) SpO2 95 % (06/02/16 2:18 PM) Problem List Condition Effective Dates Status [...] reason (Rx) Start Date: 02/08/16 Status: Ordered Coreg 25 mg oral tablet 50 mg 2 tabs, Oral, BID, # 60 tabs, 0 Refill(s) Start Date: 04/14/16 Status: Ordered Cozaar 100 mg oral tablet 100 mg 1 tabs, Oral, Daily, # 90 tabs, 1 Refill(s), [facility], 1 tabs Oral Daily Start Date: 03/07/16 Status: Ordered Dulera 200 mcg-5 mcg/inh inhalation aerosol 2 puffs, Inhalation, BID, # 13 g, 6 Refill(s), Pharmacy: [facility] Start Date: 03/31/16 Status: Ordered fluticasone 50 mcg/inh nasal spray 2 sprays, Nasal, BID, # 16 g, 0 Refill(s), other reason (Rx) Start Date: 02/08/16 Status: Ordered furosemide 20 mg oral tablet 20 mg 1 tabs, Oral, Daily, # 90 Each, 0 Refill(s), Pharmacy: [facility], 1 tabs Oral Daily Start Date: 04/06/16 Status: Ordered Miscellaneous DME DME Item Handheld [...] pain, # 1 bottles, 11 Refill(s), Pharmacy: [facility], 1 tabs SubLingual q5min,PRN:as needed for chest pain Start Date: 02/08/16 Status: Ordered ProAir HFA 90 mcg/inh inhalation aerosol See Instructions, 2 puffs Inhalation q4hr,Instr:FOR PRN USE, # 1 Each, 6 Refill( s), Pharmacy: [facility] Start Date: 04/26/16 Status: Ordered simvastatin 20 mg oral tablet [...] # 10 unknown unit, 11 Refill(s), eRx: [facility] #[id number], INSTILL 1 DROP INTO THE RIGHT EYE THREE TIMES A DAY Start Date: 09/23/14 Status: Ordered Zoloft 100 mg oral tablet 100 mg 1 tabs, Oral, Daily, # 90 tabs, 1 Refill(s), Pharmacy: [facility], 1 tabs Oral Daily Start Date: 12/16/15 Status: Ordered ZyrTEC 10 mg, Oral, Daily, 0 Refill(s) Start Date: 06/18/15 Status: Ordered Results Hematology Most recent to 1 oldest [Reference Range]: Sed Rate [0-15] 23 *HI* (06/02/16 3:59 PM) Immunizations Vaccine Date Refusal Reason tetanus/diphth/pertuss (Tdap) [...] Office Visit Note Author: Neil Mehta Date: 06/02/16 Steven COLE Assessment/Plan 1.Bronchiectasis Unclear etiology so far Workup showed no evidence of immunodeficiency or cystic fibrosis or aspiration Bronchoalveolar showed no evidence of atypical mycobacterial infection Could be idiopathic noncystic bronchiectasis For now patient isto continue on his current antibiotics will follow up on the sputum culture He might needlifelong antibiotic suppression therapy We'll also provide the patient withhand-held variable speed percussor Provided patient with an acapella We'll also repeat immunological and rheumatological workup Also plan on repeating the bronchoscopy with transbronchial biopsy once patient can be safely taken off the Plavixin July Ordered: LENNY Panel, Quantitative Angiotensin Converting Enzyme-Spencer Antineutrophil Cytoplasmic Antibody C-Reactive Protein (CRP) CT Thorax w/ Contrast Rheumatoid Factor Sedimentation Rate 2.Cough We'll send the patient a prescriptionfor guaifenesin with codeine to use at night Ordered: Self-Mgmt [place] [id number] 3.Pneumonia Continue with antibiotics per recommendation by Dr. Dewey Orders: Durable Medical Equipment Rx, DME Item Handheld variable speed precussor for CPT DX: J47.9 JOSS: 99, See Instructions, # 1 Each, 0 Refill(s), Supply Durable Medical Equipment Rx, DME Item Acapella - [place] Pt. to use as instructed by physician. Dx: J47.9 JOSS: 99 VC, See Instructions, # 1 Each, 0 Refill(s), Supply
--- OUTSIDE RECORDS SUMMARY | 2017-02-06 06:50 | XMS REPORT ---
Author Author Ryan Masterson Organization [facility] Address [address] [place] [address] Care Team Providers Care Gauge Maker Name Role Phone Ryan Masterson Unavailable [phone] PROBLEMS Type Condition ICD9-CM Code RAX31-ZR Code Onset Dates Condition Status SNOMED Code Problem Dyslipidemia E78.5 Active 864474194 Problem Dilated cardiomyopathy I42.0 Active 020040920 Problem Edema extremities R60.0 Active 540065563 Problem CHF (congestive heart failure), NYHA class II I50.9 Active 42623900 Problem Stented coronary artery Z95.5 Active 643470399 Problem Hypertension I10 Active 51844182 Problem Exercise counseling Z71.89 Active 312814555 Problem CAD (coronary artery disease) I25.10 Active 59862523 ALLERGIES Unknown Allergies SOCIAL HISTORY No smoking Hx information available PLAN OF CARE VITAL SIGNS MEDICATIONS Unknown Medications RESULTS No Results PROCEDURES No Known procedures IMMUNIZATIONS No Known Immunizations
--- OUTSIDE RECORDS SUMMARY | 2017-02-06 06:50 | XMS REPORT | Referral Summary ---
Author Organization Unknown Address Unknown Phone Unavailable Care Team Providers Care Wedger And Gluer Name Role Phone Dena Muse Primary Care Physician [phone] Encounter [facility] [id number] Date(s): 01/01/15 - 01/01/15 [facility] [place] [address] [place] [address] CRISTIN Trevino [id number] Discharge Diagnosis: Cardiomyopathy Discharge Diagnosis: Benign essential hypertension Discharge Diagnosis: Anemia Discharge Diagnosis: Screening Discharge Diagnosis: Encounter for medication monitoring Discharge Diagnosis: Actinic keratoses Discharge Diagnosis: Gastroesophageal reflux disease Discharge Diagnosis: Obesity Discharge Diagnosis: Myalgia Discharge Diagnosis: Allergic rhinitis Discharge Diagnosis: Depression Discharge Diagnosis: Hyperlipidemia Discharge Diagnosis: Asthma without status asthmaticus Discharge Diagnosis: Sinusitis Discharge Disposition: Home or Self Care Attending Physician: Moose Muse MD Admitting Physician: Moose Muse MD Vital Signs Most recent to 1 oldest [Reference Range]: Peripheral Pulse 74 bpm Rate [60-100 bpm] (01/01/15 7:57 AM) Blood Pressure 120/68 mmHg [90-140/60-90 mmHg] (01/01/15 7:57 AM) Problem List Condition Effective Dates Status [...] < 05/21/14 Resolved pain(Confirmed) Hay fever(Confirmed) < 14 Resolved Hyperlipidemia(Confi Resolved rmed) Hypertension(Confirm Resolved ed) [...] 30 tabs, 6 Refill(s), Pharmacy: [facility] #[id number] , 1 tabs Oral Daily Start Date: 06/27/14 Status: Ordered amoxicillin 875 mg oral tablet 1 tabs, Oral, BID, X 14 days, # 28 tabs, 0 Refill(s), Pharmacy: [facility] #[id number], 1 tabs Oral BID,x14 days Start Date: 01/01/15 Stop Date: 01/15/15 Status: Ordered Centrum Silver oral tablet 1 tabs, Oral, Daily, # 30 tabs, 0 Refill(s) Start Date: 04/28/14 Status: Ordered Claritin 1 tabs, Oral, Daily, 0 Refill(s) Start Date: 04/28/14 Status: Ordered Coreg 25 mg oral tablet See Instructions, TAKE ONE TABLET BY MOUTH TWICE A DAY, # 180 tabs, 2 Refill(s) , eRx: [facility] #[id number], TAKE ONE TABLET BY MOUTH TWICE A DAY Special Instructions: TAKE ONE TABLET BY MOUTH TWICE A DAY Start Date: 09/11/14 Status: Ordered Cozaar 100 mg oral tablet See Instructions, TAKE ONE TABLET BY MOUTH DAILY, # 90 tabs, 1 Refill(s), eRx: [facility] #[id number], TAKE ONE TABLET BY MOUTH DAILY Special Instructions: TAKE ONE TABLET BY MOUTH DAILY Start Date: 12/08/14 Status: Ordered Dulera 200 mcg-5 mcg/inh inhalation aerosol See Instructions, INHALE TWO PUFFS INTO LUNGS TWICE A DAY, # 13 unknown unit, 5 Refill(s), eRx: [facility] #[id number], INHALE TWO PUFFS INTO LUNGS TWICE A [...] unknown unit, 2 Refill(s), eRx: [facility] #[id number], PLACE 1 SPRAY IN EACH NOSTRIL DAILY Special Instructions: PLACE 1 SPRAY IN EACH NOSTRIL DAILY Start Date: 11/12/14 Status: Ordered fluorometholone acetate 0.1% ophthalmic suspension See Instructions, After procedure use 1 drop QID in surgical eye for 1 week then discontinue., # 5 mL, 1 Refill(s), Pharmacy: [facility] #[id number] Special Instructions: After procedure use 1 drop QID in surgical eye for 1 week then discontinue. Start Date: 12/15/14 Stop Date: 01/02/15 Status: Ordered furosemide 20 mg oral tablet See Instructions, TAKE ONE TABLET BY MOUTH DAILY, # 30 tabs, 2 Refill(s), eRx: [facility] #[id number], TAKE ONE TABLET BY MOUTH DAILY Special Instructions: TAKE ONE TABLET BY MOUTH DAILY Start Date: 10/06/14 Status: Ordered Imdur 30 mg oral tablet, extended release 1 tabs, Oral, qAM, DUE FOR APPT WITH DR MUSE, # 30 tabs, 1 Refill(s), Pharmacy: [facility] #[id number], 1 tabs Oral qAM,x30 days,Instr:DUE FOR APPT WITH DR MUSE Special Instructions: DUE FOR APPT WITH DR MUSE Start Date: 12/22/14 Stop Date: 02/20/15 Status: Ordered NexIUM 40 mg oral delayed release capsule 1 caps, Oral, Daily, APPROVED 12/15/14 CASE# [id number], # 30 caps, 4 Refill(s), eRx : [facility] #[id number], TAKE ONE CAPSULE BY MOUTH EVERY DAY Special Instructions: APPROVED 12/15/14 CASE# [id number] Start Date: 10/21/14 Status: Ordered Nitrostat 0.4 mg sublingual tablet 1 tabs, SubLingual, q5min, as needed for chest pain, # 100 tabs, 0 Refill(s) Start Date: 04/28/14 Status: Ordered ProAir HFA 90 mcg/inh inhalation aerosol See Instructions, INHALE TWO PUFFS INTO LUNGS EVERY 4 HOURS NEEDED., # 8.5 unknown unit, 1 Refill(s), eRx: [facility] #[id number], INHALE TWO PUFFS INTO LUNGS EVERY 4 HOURS NEEDED. Special Instructions: INHALE TWO PUFFS INTO LUNGS EVERY 4 HOURS NEEDED. Start Date: 11/21/14 Status: Ordered simvastatin 20 mg oral tablet 1 tabs, Oral, Bedtime (once a day), # 30 tabs, 6 Refill(s), Pharmacy: [facility] #[id number], 1 tabs Oral Bedtime (once a day) Start Date: 08/25/14 Status: Ordered Singulair 10 mg oral tablet See Instructions, TAKE ONE TABLET BY MOUTH ONCE A DAY, # 90 tabs, 1 Refill(s), eRx: [facility] #[id number], TAKE ONE TABLET BY MOUTH ONCE A DAY Special Instructions: TAKE ONE TABLET BY MOUTH ONCE A DAY Start Date: 12/19/14 Status: Ordered Spiriva 18 mcg inhalation capsule See Instructions, INHALE THE CONTENTS OF ONE CAPSULE INTO LUNGS ONCE DAILY, USE 2 INHALATIONS FOR EACH DOSE, # 30 caps, 5 Refill(s), eRx: [facility] # [id number], INHALE THE CONTENTS OF ONE CAPSULE INTO [...] unknown unit, 11 Refill(s), eRx: [facility] #[id number], INSTILL 1 DROP INTO THE RIGHT EYE THREE TIMES A DAY Special Instructions: INSTILL 1 DROP INTO THE RIGHT EYE THREE TIMES A DAY Start Date: 09/23/14 Status: Ordered Zoloft 100 mg oral tablet See Instructions, TAKE ONE TABLET BY MOUTH EVERY DAY, # 45 tabs, 5 Refill(s), eRx: [facility] #[id number], TAKE ONE TABLET BY MOUTH EVERY DAY [...] Procedures Procedure Date Related Diagnosis Body Site Destruction (eg, laser surgery, 01/01/15 electrosurgery, cryosurgery, chemosurgery, surgical curettement), premalignant lesions (eg, actinic keratoses); first lesion Cardiac catheterization1, 2 2013 Shoulder repair, left 1988 Pinning,femur fx, left 1986 Eardrum, repair left 1Coronary artery catheterization on 06/26/14. See description on note of . 2Prior cardiac catheterization in 2009. Social History Social History Type Response Smoking Status Never smoker Assessment and Plan Extracted from: Title: Ambulatory Patient Education Author: Moose Muse MD Date: Allergy Allergic Rhinitis Allergic rhinitis is when the mucous membranes in the nose respond to allergens. Allergens are particles in the air that cause your body to have an allergic reaction. This causes you to release allergic antibodies. Through a chain of events, these eventually cause you to release histamine into the blood stream (hence the use of antihistamines). Although meant to be protective to the body, it is this release that causes your discomfort, such as frequent sneezing, congestion and an itchy runny nose. CAUSES The pollen allergens may come from grasses, trees, and weeds. This is seasonal allergic rhinitis, or "hay fever." Other allergens cause year-round allergic rhinitis (perennial allergic rhinitis) such as house dust mite allergen, pet dander and mold spores. SYMPTOMS Nasal stuffiness (congestion ). Runny, itchy nose with sneezing and tearing of the eyes. There is often an itching of the mouth, eyes and ears. It cannot be cured, but it can be controlled with medications. DIAGNOSIS If you are unable to determine the offending allergen, skin or blood testing may find it. TREATMENT Avoid the allergen. Medications and allergy shots (immunotherapy ) can help. Hay fever may often be treated with antihistamines in pill or nasal spray forms. Antihistamines block the effects of histamine. There are over-the- counter medicines that may help with nasal congestion and swelling around the eyes. Check with your caregiver before taking or giving this medicine. If the treatment above does not work, there are many new medications your caregiver can prescribe. Stronger medications may be used if initial measures are ineffective. Desensitizing injections can be used if medications and avoidance fails. Desensitization is when a patient is given ongoing shots until the body becomes less sensitive to the allergen. Make sure you follow up with your caregiver if problems continue. SEEK MEDICAL CARE IF: You develop fever (more than 100.5 F (38.1 C). You develop a cough that does not stop easily (persistent ). You have shortness of breath. You start wheezing. Symptoms interfere with normal daily activities. Document Released: 07/25/2002 Document Revised: 01/21/2013 Document Reviewed: [employer] Patient Information 2014 [employer]. No follow up information was provided. Extracted from: Title: Office Visit Note-CRMMP Author: Moose Muse MD Date: 01/01/15 Assessment/Plan Actinic keratoses Treated with liquid nitrogen. Ordered: Destruction premalignant lesion Allergic rhinitis Ordered: Office Visit Level 5 Est 03676 Anemia Ordered: CBC w/ Differential Office Visit Level 5 Est 42581 Asthma without status asthmaticus Ordered: Office Visit Level 5 Est 80130 Benign essential hypertension Ordered: Office Visit Level 5 Est 41691 Cardiomyopathy Depression Ordered: Office Visit Level 5 Est 87458 Encounter for medication monitoring Ordered: Basic Metabolic Panel Office Visit Level 5 Est 35621 Gastroesophageal reflux disease Ordered: Office Visit Level 5 Est 12921 Hyperlipidemia Ordered: Lipid Panel Office Visit Level 5 Est 19577 Myalgia Ordered: Creatine Kinase Office Visit Level 5 Est 81392 Obesity Ordered: Office Visit Level 5 Est 78044 Screening Ordered: Office Visit Level 5 Est 85484 Prostate Specific Antigen Sinusitis Ordered: Office Visit Level 5 Est 10903 Orders: amoxicillin, 1 tabs, Oral, BID, X 14 days, # 28 tabs, 0 Refill(s), Pharmacy: [facility] #[id number], 1 tabs Oral BID,x14 days Overall he seems to be doing pretty well. He does continue to have some sinus congestion and will treat with a round of antibiotics as possible sinusitis. If not improving, consider referral for allergy evaluation. Otherwise continue present care. He'll return for monitoring labs fasting another day sometime soon. Follow-up 6 months or sooner if needed.
--- OUTSIDE RECORDS SUMMARY | 2017-02-06 06:50 | XMS REPORT | Referral Summary ---
Author Author [facility] [place] Organization [facility] Address Unknown Phone Unavailable Care Team Providers Care Sephora Product Consultant Name Role Phone Dena Muse Primary Care Physician [phone] Encounter Date(s): 08/12/15 - 08/12/15 [facility] [place] [address] [place] [address] CRISTIN Trevino [id number] Discharge Diagnosis: Dilated cardiomyopathy Discharge Diagnosis: Coronary heart disease Discharge Diagnosis: Atypical angina Discharge Diagnosis: Essential hypertension Discharge Diagnosis: Over weight Discharge Disposition: 01-Home or Self Care Attending Physician: Hola Heredia MD Admitting Physician: Hola Heredia MD Vital Signs Most recent to 1 oldest [Reference Range]: Peripheral Pulse 76 bpm Rate [60-100 bpm] (08/12/15 2:19 PM) Blood Pressure 126/76 mmHg [90-140/60-90 mmHg] (08/12/15 2:19 PM) Problem List Condition Effective Dates Status [...] Daily, # 30 tabs, 2 Refill(s), Pharmacy: [facility] # [id number], 1 tabs Oral Daily Start Date: 07/23/15 Status: Ordered carvedilol 25 mg oral tablet 25 mg 1 tabs, Oral, TID, # 60 tabs, 5 Refill(s), Pharmacy: [facility] # [id number], 1 tabs Oral TID Start Date: 08/12/15 Status: Ordered Centrum Silver oral tablet 1 tabs, Oral, Daily, # 30 tabs, 0 Refill(s) Start Date: 04/28/14 Status: Ordered Coreg 25 mg oral tablet See Instructions, TAKE ONE TABLET BY MOUTH TWICE A DAY, # 180 tabs, eRx: [facility] #[id number], TAKE ONE TABLET BY MOUTH TWICE A DAY Start Date: 06/29/15 Status: Ordered Cozaar 100 mg oral tablet See Instructions, TAKE ONE TABLET BY MOUTH DAILY, # 90 tabs, eRx: [facility] #[id number], TAKE ONE TABLET BY MOUTH DAILY Start Date: 06/08/15 Status: Ordered Dulera 200 mcg-5 mcg/inh inhalation aerosol See Instructions, INHALE TWO PUFFS INTO LUNGS TWICE A DAY, # 13 unknown unit, 5 Refill(s), eRx: [facility] #[id number], INHALE TWO PUFFS INTO LUNGS TWICE A DAY Start Date: 12/19/14 Status: Ordered Ecotrin 325 mg oral delayed release tablet 1 tabs, Oral, Daily, 0 Refill(s) Start Date: 04/28/14 Status: Ordered furosemide 20 mg oral tablet See Instructions, TAKE ONE TABLET BY MOUTH DAILY, # 30 tabs, 4 Refill(s), eRx: [facility] #[id number], TAKE ONE TABLET BY MOUTH DAILY Start Date: 07/09/15 Status: Ordered Imdur 30 mg oral tablet, extended release 1 tabs, Oral, qAM, DUE FOR APPT WITH DR MUSE, # 30 tabs, 1 Refill(s), Pharmacy: [facility] #[id number], 1 tabs Oral qAM,x30 days,Instr:DUE FOR APPT WITH DR MUSE Start Date: 12/22/14 Stop Date: 02/20/15 Status: Ordered NexIUM 40 mg oral delayed release capsule 40 mg 1 caps, Oral, Daily, APPROVED THRU 04/23/2016 APPROVAL# [id number], # 90 caps , 4 Refill(s), Pharmacy: [facility] #[id number], 1 caps Oral Daily,Instr: APPROVED THRU 04/23/2016 APPROVAL# [id number] Start Date: 04/30/15 Status: Ordered Nitrostat 0.4 mg sublingual tablet 1 tabs, SubLingual, q5min, as needed for chest pain, # 100 tabs, 0 Refill(s) Start Date: 04/28/14 Status: Ordered ProAir HFA 90 mcg/inh inhalation aerosol See Instructions, INHALE TWO PUFFS INTO LUNGS EVERY 4 HOURS NEEDED., # 1 Each , 6 Refill(s), Pharmacy: [facility] #[id number] Start Date: 03/06/15 Status: Ordered simvastatin 20 mg oral tablet See Instructions, TAKE ONE TABLET BY MOUTH EVERY NIGHT AT BEDTIME, # 30 tabs, 8 Refill(s), eRx: [facility] #[id number], TAKE ONE TABLET BY MOUTH EVERY NIGHT AT BEDTIME Start Date: 03/24/15 Status: Ordered Singulair 10 mg oral tablet See Instructions, TAKE ONE TABLET BY MOUTH ONCE A DAY, # 90 tabs, 1 Refill(s), eRx: [facility] #[id number], TAKE ONE TABLET BY MOUTH ONCE A DAY Start Date: 06/17/15 Status: Ordered Spiriva 18 mcg inhalation capsule See Instructions, INHALE THE CONTENTS OF ONE CAPSULE INTO LUNGS ONCE DAILY, USE 2 INHALATIONS FOR EACH DOSE, # 30 caps, 4 Refill(s), eRx: [facility] # [id number], INHALE THE CONTENTS OF ONE CAPSULE INTO LUNGS ONCE DAILY, USE 2 INHALATIONS FOR EACH DOSE Start Date: 04/07/15 Status: Ordered Super B Complex 1 tabs, Oral, Daily, 0 Refill(s) Start Date: 04/28/14 Status: Ordered Trusopt 2% ophthalmic solution See Instructions, INSTILL 1 DROP INTO THE RIGHT EYE THREE TIMES A DAY, # 10 unknown unit, 11 Refill(s), eRx: [facility] #[id number], INSTILL 1 DROP INTO THE RIGHT EYE THREE TIMES A DAY Start Date: 09/23/14 Status: Ordered Zoloft 100 mg oral tablet See Instructions, TAKE ONE TABLET BY MOUTH EVERY DAY, # 45 tabs, 5 Refill(s), eRx: [facility] #[id number], TAKE ONE TABLET BY MOUTH EVERY DAY Start Date: 12/19/14 Status: Ordered ZyrTEC Daily, 0 Refill(s) Start [...] Extracted from: Title: Office Visit Note Author: Hola Heredia MD Date: 08/12/15 Assessment/Plan 1.Dilated cardiomyopathy 2.Coronary heart disease 3.Atypical angina 4.Essential hypertension Ordered: Oximetry - Nocturnal Study 5.Over weight Discussion:In view of hisincreasing blood pressure and his cardiomyopathy , I increased hiscarvedilol to 25 mg 3 times a day. I didn't make any other changes. I advised him to bemorereligious aboutcalorie and salt restriction. I did do a dietary history and he consumes probably more caloriesand salt than he should. I advised him to see me in 6-12 months or any time as necessary. He has had relatively recent cardiac imaging so I didn't repeat it. I advised him, however, to let us know if symptoms change because cardiomyopathiesoften very in severity. Time of visit about 35 minutes. Ordered: Oximetry - Nocturnal Study Orders: carvedilol, 25 mg 1 tabs, Oral, TID, # 60 tabs, 5 Refill(s), Pharmacy : [facility] #[id number], 1 tabs Oral TID
--- OUTSIDE RECORDS SUMMARY | 2017-02-06 06:50 | XMS REPORT | Referral Summary ---
Author Author [facility] Organization [facility] Address Unknown Phone Unavailable Care Team Providers Care Subsea Engineer Name Role Phone Dena Muse Primary Care Physician [phone] Encounter Date(s): 07/27/15 - 07/27/15 [facility] [address] [place] [address] Discharge Diagnosis: Depression Discharge Diagnosis: Asthma without status asthmaticus (disorder) Discharge Diagnosis: Allergic rhinitis (disorder) Discharge Diagnosis: Benign essential hypertension Discharge Diagnosis: Pure hypercholesterolemia Discharge Diagnosis: Cardiomyopathy Discharge Diagnosis: Gastroesophageal reflux disease Discharge Diagnosis: Obesity Discharge Disposition: 01-Home or Self Care Attending Physician: Moose Muse MD Admitting Physician: Moose Muse MD Vital Signs Most recent to 1 oldest [Reference Range]: Temperature Tympanic 36.8 degC [36.6-38.1 degC] (07/27/15 8:08 AM) Peripheral Pulse 80 bpm Rate [60-100 bpm] (07/27/15 8:08 AM) Blood Pressure 130/78 mmHg [90-140/60-90 mmHg] (07/27/15 8:08 AM) Problem List Condition Effective Dates Status [...] 2.5 mg 1 tabs, Oral, Daily, # 90 tabs, 1 Refill(s), Pharmacy: [facility] [id number], 1 tabs Oral Daily Start Date: 12/16/15 Status: Ordered carvedilol 25 mg oral tablet 25 mg 1 tabs, Oral, TID, # 90 tabs, 4 Refill(s), Pharmacy: [facility], 1 tabs Oral TID Start Date: 12/09/15 Status: Ordered Centrum Silver oral tablet 1 tabs, Oral, Daily, # 30 tabs, 0 Refill(s) Start Date: 04/28/14 Status: Ordered Coreg 25 mg oral tablet 25 mg 1 tabs, Oral, BID, DUE FOR APPT WITH DR MUSE, # 180 tabs, 0 Refill(s), Pharmacy: [place] [id number], 1 tabs Oral BID,Instr:DUE FOR APPT WITH DR MUSE Start Date: 01/13/16 Status: Ordered Cozaar 100 mg oral tablet 100 mg 1 tabs, Oral, Daily, # 90 tabs, 1 Refill(s), Pharmacy: [facility] , 1 tabs Oral Daily Start Date: 12/04/15 Status: Ordered Dulera 200 mcg-5 mcg/inh inhalation aerosol 2 puffs, Inhalation, BID, DUE FOR APPT WITH DR MUSE, # 13 g, 0 Refill(s), Pharmacy: [facility] Start Date: 01/13/16 Status: Ordered Ecotrin 325 mg oral delayed release tablet 1 tabs, Oral, Daily, 0 Refill(s) Start Date: 04/28/14 Status: Ordered furosemide 20 mg oral tablet 20 mg 1 tabs, Oral, Daily, # 30 tabs, 2 Refill(s), Pharmacy: [facility], 1 tabs Oral Daily Start Date: 01/07/16 Status: Ordered furosemide 20 mg oral tablet 20 mg 1 tabs, Oral, Daily, # 30 tabs, 3 Refill(s), Pharmacy: [facility], 1 tabs Oral Daily Start Date: 12/09/15 Status: Ordered Imdur 30 mg oral tablet, extended release 30 mg 1 tabs, Oral, qAM, # 90 tabs, 1 Refill(s), Pharmacy: [facility], 1 tabs Oral qAM Start Date: 12/16/15 Status: Ordered Nitrostat 0.4 mg sublingual tablet 1 tabs, SubLingual, q5min, as needed for chest pain, # 100 tabs, 0 Refill(s) Start Date: 04/28/14 Status: Ordered omeprazole 20 mg oral delayed release capsule 20 mg 1 caps, Oral, Daily, TO REPLACE NEXIUM INS WOULD NOT COVER NEXIUM, # 90 caps, 1 Refill(s), Pharmacy: [facility] [facility] [id number], 1 caps Oral Daily,Instr:TO REPLACE NEXIUM INS WOULD NOT COVER NEXIUM Start Date: 01/13/16 Status: Ordered ProAir HFA 90 mcg/inh inhalation aerosol See Instructions, 2 puffs Inhalation q4hr,Instr:FOR PRN USE PATIENT DUE FOR APPT WITH DR MUSE, # 1 Each, eRx: [facility], 2 puffs Inhalation q4hr,Instr:FOR PRN USE PATIENT DUE FOR APPT WITH DR MUSE Start Date: 02/03/16 Status: Ordered Spiriva 18 mcg inhalation capsule 18 mcg 1 Each, Inhalation, Daily, # 30 Each, 3 Refill(s), Pharmacy: [facility], 1 Each Inhalation Daily Start Date: 12/09/15 Status: Ordered Spiriva 18 mcg inhalation capsule 18 mcg 1 Each, Inhalation, Daily, # 30 Each, 3 Refill(s), Pharmacy: [facility], 1 Each Inhalation Daily Start Date: 01/07/16 Status: Ordered Super B Complex 1 tabs, Oral, Daily, 0 Refill(s) Start Date: 04/28/14 Status: Ordered Trusopt 2% ophthalmic solution See Instructions, INSTILL 1 DROP INTO THE RIGHT EYE THREE TIMES A DAY, # 10 unknown unit, 11 Refill(s), eRx: [facility] #[id number], INSTILL 1 DROP INTO THE RIGHT EYE THREE TIMES A DAY Start Date: 09/23/14 Status: Ordered Zoloft 100 mg oral tablet 100 mg 1 tabs, Oral, Daily, # 90 tabs, 1 Refill(s), Pharmacy: [facility], 1 tabs Oral Daily Start [...] Patient Education Author: Moose Muse MD Date: Family Medicine Gastroesophageal Reflux Disease, Adult Gastroesophageal reflux disease (GERD) happens when acid from your stomach flows up into the esophagus. When acid comes in contact with the esophagus, the acid causes soreness (inflammation) in the esophagus. Over time, GERD may create small holes (ulcers) in the lining of the esophagus. CAUSES Increased body weight. This puts pressure on the stomach, making acid rise from the stomach into the esophagus. Smoking. This increases acid production in the stomach. Drinking alcohol. This causes decreased pressure in the lower esophageal sphincter (valve or ring of muscle between the esophagus and stomach), allowing acid from the stomach into the esophagus. Late evening meals and a full stomach. This increases pressure and acid production in the stomach. A malformed lower esophageal sphincter. Sometimes, no cause is found. SYMPTOMS Burning pain in the lower part of the mid-chest behind the breastbone and in the mid-stomach area. This may occur twice a week or more often. Trouble swallowing. Sore throat. Dry cough. Asthma-like symptoms including chest tightness, shortness of breath, or wheezing. DIAGNOSIS Your caregiver may be able to diagnose GERD based on your symptoms. In some cases, X-rays and other tests may be done to check for complications or to check the condition of your stomach and esophagus. TREATMENT Your caregiver may recommend ftvz-mjs-[id number] or prescription medicines to help decrease acid production. Ask your caregiver before starting or adding any new medicines. HOME CARE INSTRUCTIONS Change the factors that you can control. Ask your caregiver for guidance concerning weight loss, quitting smoking, and alcohol consumption. Avoid foods and drinks that make your symptoms worse, such as: Caffeine or alcoholic drinks. Chocolate. Peppermint or mint flavorings. Garlic and onions. Spicy foods. Caroline fruits, such as oranges, monroe, or limes. Tomato-based foods such as sauce, chili, salsa, and pizza. Fried and fatty foods. Avoid lying down for the 3 hours prior to your bedtime or prior to taking a nap. Eat small, frequent meals instead of large meals. Wear loose-fitting clothing. Do not wear anything tight around your waist that causes pressure on your stomach. Raise the head of your bed 6 to 8 inches with wood blocks to help you sleep. Extra pillows will not help. Only take xegb-fki-ytvognk or prescription medicines for pain, discomfort, or fever as directed by your caregiver. Do not take aspirin, ibuprofen, or other nonsteroidal anti-inflammatory drugs (NSAIDs). SEEK IMMEDIATE MEDICAL CARE IF: You have pain in your arms, neck, jaw, teeth, or back. Your pain increases or changes in intensity or duration. You develop nausea, vomiting, or sweating (diaphoresis). You develop shortness of breath, or you faint. Your vomit is green, yellow, black, or looks like coffee grounds or blood. Your stool is red, bloody, or black. These symptoms could be signs of other problems, such as heart disease, gastric bleeding, or esophageal bleeding. MAKE SURE YOU: Understand these instructions. Will watch your condition. Will get help right away if you are not doing well or get worse. Document Released: 08/09/2006 Document Revised: 01/21/2013 Document Reviewed: ExitCare Patient Information 2015 [employer]. This information is not intended to replace advice given to you by your health care provider. Make sure you discuss any questions you have with your health care provider. No follow up information was provided. Extracted from: Title: Office Visit Note Author: Moose Muse MD Date: 07/27/15 Assessment/Plan Allergic rhinitis (disorder) Asthma without status asthmaticus (disorder) Benign essential hypertension Cardiomyopathy Depression Gastroesophageal reflux disease Obesity Pure hypercholesterolemia Overall stable. Continue current medications and follow-up for planned with Dr. Heredia. Follow-up with me in 6 months for CRMMP. Encouraged continued efforts at weight loss and exercise.
--- OUTSIDE RECORDS SUMMARY | 2017-02-06 06:50 | XMS REPORT | Referral Summary ---
Author Author [facility] Organization [facility] Address Unknown Phone Unavailable Care Team Providers Care Director Of Music Name Role Phone Dena Oates Primary Care Physician [phone] Encounter [facility] Date(s): 04/14/16 - 04/14/16 [facility] [address] [place] [address] Discharge Disposition: 01-Home or Self Care Attending Physician: Neil Mehta MD Vital Signs Most recent to 1 oldest [Reference Range]: Temperature Temporal 37.2 degC Artery [36.3-37.8 (04/14/16 7:47 AM) degC] Apical Heart Rate 71 bpm [60-100 bpm] (04/14/16 7:47 AM) Heart Rate Monitored 75 bpm [60-100 bpm] (04/14/16 10:40 AM) Respiratory Rate 14 br/min [14-20 br/min] (04/14/16 10:40 AM) Blood Pressure 148/86 mmHg [90-140/60-90 mmHg] *HI* (04/14/16 10:40 AM) Mean Arterial 111 mmHg Pressure, Cuff (04/14/16 10:40 AM) SpO2 92 % (04/14/16 10:40 AM) Problem List Condition Effective Dates Status [...] Daily, # 90 tabs, 1 Refill(s), [facility], 1 tabs Oral Daily Start Date: 03/07/16 Status: Ordered Dulera 200 mcg-5 mcg/inh inhalation aerosol 2 puffs, Inhalation, BID, # 13 g, 6 Refill(s), [facility] Start Date: 03/31/16 Status: Ordered fluticasone 50 mcg/inh nasal spray 2 sprays, Nasal, BID, # 16 g, 0 Refill(s), other reason (Rx) Start Date: 02/08/16 Status: Ordered furosemide 20 mg oral tablet 20 mg 1 tabs, Oral, Daily, # 90 Each, 0 Refill(s), Pharmacy: [facility], 1 tabs Oral Daily Start Date: 04/06/16 Status: Ordered montelukast 10 mg oral tablet [...] pain, # 1 bottles, 11 Refill(s), Pharmacy: [facility] 2428, 1 tabs SubLingual q5min,PRN:as needed for chest pain Start Date: 02/08/16 Status: Ordered ProAir HFA 90 mcg/inh inhalation aerosol See Instructions, 2 puffs Inhalation q4hr,Instr:FOR PRN USE PATIENT DUE FOR APPT WITH DR OATES, # 1 Each, 3 Refill(s), Pharmacy: [facility] Start Date: 03/28/16 Status: Ordered simvastatin 20 [...] # 10 unknown unit, 11 Refill(s), eRx: [facility] #[id number], INSTILL 1 DROP INTO THE RIGHT EYE THREE TIMES A DAY Start Date: 09/23/14 Status: Ordered Zoloft 100 mg oral tablet 100 mg 1 tabs, Oral, Daily, # 90 tabs, 1 Refill(s), Pharmacy: [facility]28, 1 tabs Oral Daily Start Date: 12/16/15 Status: Ordered ZyrTEC 10 mg, Oral, Daily, 0 Refill(s) Start Date: 06/18/15 Status: Ordered Results Microbiology Reports TEST: Bronchoscopy Culture and Smear STATUS: Order in Progress BODY SITE: SOURCE: Bronchial Wash COLLECTED DATE/TIME: 04/14/16 8:30 AM Gram Smear Numerous (20-50/OIF) white blood cells Innumerable (>50/OIF) gram positive rods OIF=Oil Immersion Field LPF=Low Power Field Immunizations Vaccine Date Refusal Reason tetanus/diphth/pertuss (Tdap) [...]
--- OUTSIDE RECORDS SUMMARY | 2017-02-06 06:50 | XMS REPORT | Referral Summary ---
Author Author [facility] Organization [facility] Address Unknown Phone Unavailable Care Team Providers Care Drum Drier Operator Name Role Phone Dena Muse Primary Care Physician [phone] Encounter [facility] [id number] Date(s): 06/02/16 - 06/02/16 [facility] [address] [place], [place] [address] Discharge Diagnosis: Cough Discharge Disposition: 01-Home or Self Care Attending Physician: Neil Mehta MD Admitting Physician: Neil Mehta MD Vital Signs No data available for [...] Daily, # 90 tabs, 1 Refill(s), Pharmacy: [facility], 1 tabs Oral Daily Start Date: 03/07/16 Status: Ordered Dulera 200 mcg-5 mcg/inh inhalation aerosol 2 puffs, Inhalation, BID, # 13 g, 6 Refill(s), [facility] Start Date: 03/31/16 Status: Ordered fluticasone 50 mcg/inh nasal spray 2 sprays, Nasal, BID, # 16 g, 0 Refill(s), other reason (Rx) Start Date: 02/08/16 Status: Ordered furosemide 20 mg oral tablet 20 mg 1 tabs, Oral, Daily, # 90 Each, 0 Refill(s), Pharmacy: [facility] 2428, 1 tabs Oral Daily [...] pain, # 1 bottles, 11 Refill(s), [facility], 1 tabs SubLingual q5min,PRN:as needed for chest pain Start Date: 02/08/16 Status: Ordered ProAir HFA 90 mcg/inh inhalation aerosol See Instructions, 2 puffs Inhalation q4hr,Instr:FOR PRN USE, # 1 Each, 6 Refill( s), Pharmacy: [facility] 242 Start Date: 04/26/16 Status: Ordered simvastatin 20 [...] unknown unit, 11 Refill(s), eRx: [facility] #[id number], INSTILL 1 DROP INTO THE RIGHT EYE THREE TIMES A DAY Start Date: 09/23/14 Status: Ordered Zoloft 100 mg oral tablet 100 mg 1 tabs, Oral, Daily, # 90 tabs, 1 Refill(s), [facility], 1 tabs Oral Daily Start Date: 12/16/15 [...]
--- OUTSIDE RECORDS SUMMARY | 2017-02-06 06:50 | XMS REPORT | Referral Summary ---
Author Author [facility] [employer] Organization [facility] Address Unknown Phone Unavailable Care Team Providers Care Enterprise Resource Planner Name Role Phone Dena Muse Primary Care Physician [phone] Encounter Date(s): 08/17/15 - 08/17/15 [facility] [place] [address] [place], [place] [address] Discharge Disposition: 01-Home or Self Care Attending [...] Daily, # 30 tabs, 2 Refill(s), Pharmacy: [facility] # [id number], 1 tabs Oral Daily Start Date: 07/23/15 Status: Ordered carvedilol 25 mg oral tablet 25 mg 1 tabs, Oral, TID, # 60 tabs, 5 Refill(s), Pharmacy: [facility] # [id number], 1 tabs Oral TID Start Date: 08/12/15 Status: Ordered Centrum Silver oral tablet 1 tabs, Oral, Daily, # 30 tabs, 0 Refill(s) Start Date: 04/28/14 Status: Ordered Coreg 25 mg oral tablet See Instructions, TAKE ONE TABLET BY MOUTH TWICE A DAY, # 180 tabs, eRx: [facility] #[id number], TAKE ONE TABLET BY MOUTH TWICE A DAY Start Date: 06/29/15 Status: Ordered Cozaar 100 mg oral tablet See Instructions, TAKE ONE TABLET BY MOUTH DAILY, # 90 tabs, eRx: [facility] #[id number], TAKE ONE TABLET BY MOUTH DAILY Start Date: 06/08/15 Status: Ordered Dulera 200 mcg-5 mcg/inh inhalation aerosol See Instructions, INHALE TWO PUFFS INTO LUNGS TWICE A DAY, # 13 unknown unit, 5 Refill(s), eRx: [facility] #[id number], INHALE TWO PUFFS INTO LUNGS TWICE A DAY Start Date: 12/19/14 Status: Ordered Ecotrin 325 mg oral delayed release tablet 1 tabs, Oral, Daily, 0 Refill(s) Start Date: 04/28/14 Status: Ordered furosemide 20 mg oral tablet See Instructions, TAKE ONE TABLET BY MOUTH DAILY, # 30 tabs, 4 Refill(s), eRx: [facility] #[id number], TAKE ONE TABLET BY MOUTH DAILY Start Date: 07/09/15 Status: Ordered Imdur 30 mg oral tablet, extended release 1 tabs, Oral, qAM, DUE FOR APPT WITH DR MUSE, # 30 tabs, 1 Refill(s), Pharmacy: [facility] #[id number], 1 tabs Oral qAM,x30 days,Instr:DUE FOR APPT WITH DR MUSE Start Date: 12/22/14 Stop Date: 02/20/15 Status: Ordered NexIUM 40 mg oral delayed release capsule 40 mg 1 caps, Oral, Daily, APPROVED THRU 04/23/2016 APPROVAL# [id number], # 90 caps , 4 Refill(s), Pharmacy: [facility] #[id number], 1 caps Oral Daily,Instr: APPROVED THRU 04/23/2016 APPROVAL# [id number] Start Date: 04/30/15 Status: Ordered Nitrostat 0.4 mg sublingual tablet 1 tabs, SubLingual, q5min, as needed for chest pain, # 100 tabs, 0 Refill(s) Start Date: 04/28/14 Status: Ordered ProAir HFA 90 mcg/inh inhalation aerosol See Instructions, INHALE TWO PUFFS INTO LUNGS EVERY 4 HOURS NEEDED., # 1 Each , 6 Refill(s), Pharmacy: [facility] #[id number] Start Date: 03/06/15 Status: Ordered simvastatin 20 mg oral tablet See Instructions, TAKE ONE TABLET BY MOUTH EVERY NIGHT AT BEDTIME, # 30 tabs, 8 Refill(s), eRx: [facility] #[id number], TAKE ONE TABLET BY MOUTH EVERY NIGHT AT BEDTIME Start Date: 03/24/15 Status: Ordered Singulair 10 mg oral tablet See Instructions, TAKE ONE TABLET BY MOUTH ONCE A DAY, # 90 tabs, 1 Refill(s), eRx: [facility] #[id number], TAKE ONE TABLET BY MOUTH ONCE A DAY Start Date: 06/17/15 Status: Ordered Spiriva 18 mcg inhalation capsule See Instructions, INHALE THE CONTENTS OF ONE CAPSULE INTO LUNGS ONCE DAILY, USE 2 INHALATIONS FOR EACH DOSE, # 30 caps, 4 Refill(s), eRx: [facility] # [id number], INHALE THE CONTENTS OF ONE CAPSULE INTO LUNGS ONCE DAILY, USE 2 INHALATIONS FOR EACH DOSE Start Date: 04/07/15 Status: Ordered Super B Complex 1 tabs, Oral, Daily, 0 Refill(s) Start Date: 04/28/14 Status: Ordered Trusopt 2% ophthalmic solution See Instructions, INSTILL 1 DROP INTO THE RIGHT EYE THREE TIMES A DAY, # 10 unknown unit, 11 Refill(s), eRx: [facility] #[id number], INSTILL 1 DROP INTO THE RIGHT EYE THREE TIMES A DAY Start Date: 09/23/14 Status: Ordered Zoloft 100 mg oral tablet See Instructions, TAKE ONE TABLET BY MOUTH EVERY DAY, # 45 tabs, 5 Refill(s), eRx: [facility] #[id number], TAKE ONE TABLET BY MOUTH EVERY DAY [...]
--- OUTSIDE RECORDS SUMMARY | 2017-02-06 06:50 | XMS REPORT | Referral Summary ---
Author Author [facility] Organization [facility] Address Unknown Phone Unavailable Care Team Providers Care Sleeping Car Porter Name Role Phone Dena Muse Primary Care Physician [phone] Encounter [facility] [id number] Date(s): 08/04/16 - 08/04/16 [facility] [address] [place], [place] [address] Discharge Diagnosis: Need for pneumococcal vaccine Discharge Diagnosis: Abnormal chest CT Discharge Diagnosis: Lung nodule Discharge Diagnosis: Pseudomonal pneumonia Discharge Disposition: 01-Home or Self Care Attending Physician: Neil Mehta MD Admitting Physician: Neil Mehta MD Vital Signs Most recent to 1 oldest [Reference Range]: Peripheral Pulse 66 bpm Rate [60-100 bpm] (08/04/16 1:36 PM) Respiratory Rate 16 br/min [14-20 br/min] (08/04/16 1:36 PM) Blood Pressure 110/62 mmHg [90-140/60-90 mmHg] (08/04/16 1:36 PM) SpO2 96 % (08/04/16 1:36 PM) Problem List Condition Effective Dates Status [...] reason (Rx) Start Date: 02/08/16 Status: Ordered azithromycin 250 mg oral tablet 250 mg 1 tabs, Oral, Daily, 0 Refill(s) Start Date: 08/04/16 Status: Ordered Centrum Silver oral tablet 1 [...] 50 mg 2 tabs, Oral, BID, # 120 tabs, 0 Refill(s), Pharmacy: [facility], 2 tabs Oral BID Start Date: 08/02/16 Status: Ordered Cozaar 100 mg oral tablet 100 mg 1 tabs, Oral, Daily, # 90 tabs, 1 Refill(s), Pharmacy: [facility] , 1 tabs Oral Daily Start Date: 08/02/16 Status: Ordered Dulera 200 mcg-5 mcg/inh inhalation aerosol 2 puffs, Inhalation, BID, # 13 g, 6 Refill(s), Pharmacy: [facility] 242 Start Date: 03/31/16 Status: Ordered fluticasone 50 mcg/inh nasal spray 2 sprays, Nasal, BID, # 16 g, 0 Refill(s), other reason (Rx) Start Date: 02/08/16 Status: Ordered furosemide 20 mg oral tablet See Instructions, TAKE ONE TABLET BY MOUTH ONCE DAILY, # 90 tabs, 3 Refill(s), Pharmacy: [facility], TAKE ONE TABLET BY MOUTH ONCE DAILY Start Date: 08/02/16 Status: Ordered Miscellaneous DME DME Item Handheld [...] BY MOUTH ONCE DAILY, # 90 tabs, 3 Refill(s), Pharmacy: [facility], TAKE ONE TABLET BY MOUTH ONCE DAILY Start Date: 08/02/16 Status: Ordered NexIUM 40 mg oral powder for reconstitution, delayed release 40 mg 1 Each, Oral, Daily, # 1 Each, 0 Refill(s), other reason (Rx) Start Date: 02/08/16 Status: Ordered Nitrostat 0.4 mg sublingual tablet 0.4 mg 1 tabs, SubLingual, q5min, as needed for chest pain, # 1 bottles, 11 Refill(s), Pharmacy: [facility] 2427, 1 tabs SubLingual q5min,PRN:as needed for chest pain Start Date: 02/08/16 Status: Ordered ProAir HFA 90 mcg/inh inhalation aerosol See Instructions, 2 puffs Inhalation q4hr,Instr:FOR PRN USE, # 1 Each, 6 Refill( s), Pharmacy: [facility] [id number] Start Date: 04/26/16 Status: Ordered sertraline 100 mg oral tablet See Instructions, TAKE ONE TABLET BY MOUTH ONCE DAILY, # 90 tabs, 3 Refill(s), Pharmacy: [facility], TAKE ONE TABLET BY MOUTH ONCE DAILY Start Date: 08/02/16 Status: Ordered simvastatin 20 mg oral tablet See Instructions, TAKE ONE TABLET BY MOUTH ONCE DAILY, # 90 tabs, 3 Refill(s), Pharmacy: [facility], TAKE ONE TABLET BY MOUTH ONCE DAILY Start Date: 08/02/16 Status: Ordered SMZ-TMP DS 800 mg-160 mg oral tablet 1 tabs, Oral, BID, 0 Refill(s) Start Date: 08/04/16 Status: Ordered Super B Complex 1 tabs, Oral, Daily, 0 Refill(s) Start Date: 04/28/14 Status: Ordered Trusopt 2% ophthalmic solution See Instructions, INSTILL 1 DROP INTO THE RIGHT EYE THREE TIMES A DAY, # 10 unknown unit, 11 Refill(s), eRx: [facility] #[id number], INSTILL 1 DROP INTO THE RIGHT EYE THREE TIMES A DAY Start Date: 09/23/14 Status: Ordered ZyrTEC 10 mg, Oral, Daily, 0 Refill(s) Start Date: 06/18/15 Status: Ordered Results No data available for this section Immunizations Vaccine Date Refusal Reason tetanus/diphth/pertuss (Tdap) adult/adol 12/31/13 influenza virus vaccine, inactivated 08/01/16 influenza virus vaccine, inactivated1 09/25/14 influenza virus vaccine, live 11/19/12 pneumococcal 23-polyvalent vaccine 08/04/16 pneumococcal 23-polyvalent vaccine 08/16/10 pneumococcal 23-polyvalent vaccine [...] Office Visit Note Author: Neil Mehta Date: 08/04/16 Steven COLE Assessment/Plan 1.Lung nodule 7 mm nodule likely infectious in etiology however will follow-upin the next CT chest in 3 months Ordered: CT Thorax w/o Contrast 2.Need for pneumococcal vaccine Pneumonia vaccine given today 3.Pseudomonal pneumonia Patient with Pseudomonas and MRSA infection on his CT chestlikely causing his abnormal CT chest and cough. Significantly improved onceantibiotics are started. Continue to follow up with Dr. Deweyregarding antibiotic duration 4.Abnormal chest CT Likely infectious in etiology secondary to pseudomonal andMRSA infections. Follow-up with another CT chest to document stabilityor resolution Follow-up in 3 months
--- OUTSIDE RECORDS SUMMARY | 2017-02-06 06:51 | XMS REPORT ---
Author Author Ryan Masterson Organization [facility] Address [address] [place] [address] Care Team Providers Care Tail Puller Name Role Phone Ryan Masterson Unavailable [phone] PROBLEMS Type Condition ICD9-CM Code VKB86-XI Code Onset Dates Condition Status SNOMED Code Problem Dyslipidemia E78.5 Active 010959845 Problem Dilated cardiomyopathy I42.0 Active 689906720 Problem Edema extremities R60.0 Active 654174527 Problem CHF (congestive heart failure), NYHA class II I50.9 Active 41024850 Problem Stented coronary artery Z95.5 Active 341214411 Problem Hypertension I10 Active 41538965 Problem Exercise counseling Z71.89 Active 857068162 Problem CAD (coronary artery disease) I25.10 Active 31413085 ALLERGIES Unknown Allergies SOCIAL HISTORY No smoking Hx information available PLAN OF CARE VITAL SIGNS MEDICATIONS Unknown Medications RESULTS No Results PROCEDURES No Known procedures IMMUNIZATIONS No Known Immunizations
--- OUTSIDE RECORDS SUMMARY | 2017-02-06 06:51 | XMS REPORT | Continuity of Care Document ---
Author Author [facility] Organization [facility] Address Unknown Phone Unavailable Allergies Active Description Code Type Severity Reaction Onset Reported/Identified Relationship to Patient Clinical Status Yes No Known Drug Allergies No Known Drug Allergies Drug Allergy Unknown NKDA 07/14/2010 Yes No Known Medication Allergies NKMA N/A N/A 06/24/2014 Medications Problems Date Dx Coded Attending Type Code Diagnosis Diagnosed By 01/04/2016 Sherry Blake MD E66.9 OBESITY, UNSPECIFIED 01/04/2016 Sherry Blake MD E78.5 HYPERLIPIDEMIA, UNSPECIFIED 01/04/2016 Sherry Blake MD I10 ESSENTIAL (PRIMARY) HYPERTENSION 01/04/2016 Sherry Blake MD I21.4 NON-ST ELEVATION (NSTEMI) MYOCARDIAL INFARCTION 01/04/2016 Sherry Blake MD I25.110 ATHSCL HEART DISEASE OF [place] ART W UNSTABLE 01/04/2016 Sherry Blake MD I42.9 CARDIOMYOPATHY, UNSPECIFIED 01/04/2016 Sherry Blake MD J44.9 CHRONIC OBSTRUCTIVE PULMONARY DISEASE, UNSPECIFIED 01/04/2016 Sherry Blake MD J45.909 UNSPECIFIED ASTHMA, UNCOMPLICATED 01/04/2016 Sherry Blake MD R07.9 CHEST PAIN, UNSPECIFIED 01/04/2016 Sherry Blake MD Z23 ENCOUNTER FOR IMMUNIZATION 01/04/2016 Sherry Blake MD Z68.36 BODY MASS INDEX (BMI) 36.0-36.9, ADULT Procedures Code Description Performed By Performed On 651292H DILATION OF 1 COR ART WITH DRUG-ELUT INTRALUM, PER Margo Lobato MD 01/04/2016 [id number] INTRODUCE OTH THERAP SUBST IN PERIPH VEIN, PERC Margo Lobato MD 01/04/2016 [id number] MEASURE OF CARDIAC SAMPL PRESSURE, L HEART, PERC Lou COLE, Sherry G 01/04/2016 [id number] FLUOROSCOPY OF MULT COR ART USING L OSM CONTRAST Lou COLE, Sherry G 01/04/2016 [id number] FLUOROSCOPY OF LEFT HEART USING LOW OSMOLAR CONTRA Lou COLE, Sherry G 01/04/2016 Results Test Result Range TROPONIN I - 01/04/16 11:32 TROPONIN I < 0.02 ng/mL < 0.07 TROPONIN I - 01/04/16 17:23 TROPONIN I < 0.02 ng/mL < 0.07 TROPONIN I - 01/04/16 23:32 TROPONIN I < 0.02 ng/mL < 0.07 CBC W/DIFF - 01/05/16 04:19 EOSINOPHIL # 0.1 k/cumm 0.1-0.5 EOSINOPHIL % 1 % 2-4 GRANULOCYTE # 9.9 k/cumm 2.0-9.0 GRANULOCYTE % 82 % 50-75 LYMPHOCYTE # 1.3 k/cumm 1.0-4.0 LYMPHOCYTE % 11 % 20-30 MEAN CELL HGB 30.4 pg 27.0-33.0 MEAN CELL HGB CONCENTRATION 35.4 g/dL 32.0-37.0 MEAN CELL VOLUME 85.9 fl 80.0-100.0 MONOCYTE # 0.7 k/cumm 0.1-1.0 MONOCYTE % 6 % 4-6 RED BLOOD CELL 4.74 m/cumm 4.00-6.00 RED CELL DISTRIBUTION WIDTH 13.8 % 11.0- 15.6 WHITE BLOOD CELL 12.0 k/cumm 5.0-10.0 HEMOGLOBIN 14.4 gm/dL 14.0-18.0 HEMATOCRIT 40.7 % 40.0-54.0 PLATELET COUNT 187 k/cumm 150-400 METABOLIC PANEL, COMPREHN - 01/05/16 04:19 POTASSIUM 3.8 mmol/L 3.5-5.3 EST GFR (MDRD) > 60 mL/min > 59 ANION GAP 8 mmol/L 5-15 EST CrCl (CG) > 60 mL/min > 59 GLUCOSE 103 mg/dL 70-99 CALCIUM 8.8 mg/dL 8.5-10.1 BLOOD UREA NITROGEN 12 mg/dL 7-20 CREATININE 0.8 mg/dL 0.7-1.3 SODIUM 141 mmol/L 135-148 CHLORIDE 105 mmol/L 98-110 AST/SGOT 17 Units/L 10-37 ALT/SGPT 17 Units/L < 66 CARBON DIOXIDE 28 mmol/L 21-32 TOTAL PROTEIN 7.0 gm/dL 6.4-8.2 ALBUMIN 3.4 gm/dL 3.4-5.0 BILI TOTAL 0.6 mg/dL 0.0-1.0 ALKALINE PHOSPHATASE TOTAL 104 IU/L 45- 117 LIPID PANEL - 01/05/16 04:19 CHOLESTEROL/HDL RATIO 3.9 < 5.0 LDL CHOLESTEROL 74 mg/dL < 100 VLDL CHOLESTEROL 24 mg/dL < 30 TRIGLYCERIDES 121 mg/dL < 150 CHOLESTEROL 132 mg/dL < 200 HDL CHOLESTEROL 34 mg/dL > 39 CBC W/DIFF - 11/10/16 12:00 BASOPHIL # 0.0 k/cumm 0.0-0.2 BASOPHIL % 1 % 0-1 EOSINOPHIL # 0.2 k/cumm 0.1-0.5 EOSINOPHIL % 4 % 2-4 GRANULOCYTE # 3.5 k/cumm 2.0-9.0 GRANULOCYTE % 65 % 50-75 LYMPHOCYTE # 1.3 k/cumm 1.0-4.0 LYMPHOCYTE % 23 % 20-30 MEAN CELL HGB 30.0 pg 27.0-33.0 MEAN CELL HGB CONCENTRATION 33.9 g/dL 32.0-37.0 MEAN CELL VOLUME 88.7 fl 80.0-100.0 MONOCYTE # 0.4 k/cumm 0.1-1.0 MONOCYTE % 7 % 4-6 RED BLOOD CELL 4.86 m/cumm 4.00-6.00 RED CELL DISTRIBUTION WIDTH 13.1 % 11.0- 15.6 WHITE BLOOD CELL 5.4 k/cumm 5.0-10.0 HEMOGLOBIN 14.6 gm/dL 14.0-18.0 HEMATOCRIT 43.1 % 40.0-54.0 PLATELET COUNT 183 k/cumm 150-400 METABOLIC PANEL, COMPREHN - 11/10/16 12:00 POTASSIUM 4.0 mmol/L 3.5-5.3 EST GFR (MDRD) > 60 mL/min > 59 ANION GAP 8 mmol/L 5-15 GLUCOSE 108 mg/dL 70-99 CALCIUM 8.5 mg/dL 8.5-10.1 BLOOD UREA NITROGEN 13 mg/dL 7-20 CREATININE 0.7 mg/dL 0.7-1.3 SODIUM 141 mmol/L 135-148 CHLORIDE 106 mmol/L 98-110 AST/SGOT 23 Units/L 10-37 ALT/SGPT 23 Units/L < 66 CARBON DIOXIDE 27 mmol/L 21-32 TOTAL PROTEIN 7.3 gm/dL 6.4-8.2 ALBUMIN 3.6 gm/dL 3.4-5.0 BILI TOTAL 0.8 mg/dL 0.0-1.0 ALKALINE PHOSPHATASE TOTAL 89 IU/L 45- 117 PROTHROMBIN TIME WITH INR - 11/10/16 12:00 INTERNATIONAL NORMAL RATIO 0.9 0.9-1.1 PROTHROMBIN TIME 10.5 sec 10.0-12.9 PARTIAL THROMBOPLASTIN TIME - 11/10/16 12:00 PARTIAL THROMBOPLASTIN TIME 27 sec 25-37 Encounters ACCT No. Visit Date/Time Discharge Status Pt. Type Provider Facility Loc./Unit Complaint [id number] 02/06/2014 11:19:00 02/06/2014 23 :59:59 CLS Outpatient [id number] 12/31/2013 08:05:00 12/31/2013 23 :59:59 CLS Outpatient [id number] 12/26/2013 14:15:00 12/26/2013 23 :59:59 CLS Outpatient [id number] 12/16/2013 13:58:00 12/16/2013 23 :59:59 CLS Outpatient
--- OUTSIDE RECORDS SUMMARY | 2017-02-06 06:51 | XMS REPORT | Referral Summary ---
Author Author [facility] Organization [facility] Address Unknown Phone Unavailable Care Team Providers Care Service Counselor Name Role Phone Dena Muse Primary Care Physician [phone] Encounter VC Date(s): 02/23/16 - 02/23/16 [facility] [address] [place] [address] Discharge Diagnosis: Moderate persistent allergic asthma Discharge Diagnosis: CAD (coronary artery disease) Discharge Diagnosis: Abnormal chest x-ray Discharge Diagnosis: Cough Discharge Disposition: 01-Home or Self Care Attending Physician: Moose Muse MD Admitting Physician: Moose Muse MD Vital Signs Most recent to 1 oldest [Reference Range]: Temperature Tympanic 36.9 degC [36.6-38.1 degC] (02/23/16 4:27 PM) Peripheral Pulse 80 bpm Rate [60-100 bpm] (02/23/16 4:27 PM) Blood Pressure 150/82 mmHg [90-140/60-90 mmHg] *HI* (02/23/16 4:27 PM) Problem List Condition Effective Dates Status [...] Pinning, lt femur Resolved fx(Confirmed) PREGLAUCOMA, < 15 Resolved UNSPECIFIED(Confirme d) POAG (primary Active open-angle [...] Daily, # 90 tabs, 1 Refill(s), Pharmacy: [facility] , 1 tabs Oral Daily Start Date: 12/04/15 Status: Ordered doxycycline hyclate 100 mg oral capsule 100 mg 1 caps, Oral, BID, # 20 caps, 0 Refill(s), Pharmacy: [facility], 1 caps Oral BID Start Date: 02/23/16 Stop Date: 03/24/16 Status: Ordered Dulera 200 mcg-5 mcg/inh inhalation aerosol See Instructions, 2 puffs Inhalation BID,Instr:DUE FOR APPT WITH DR MUSE, # 13 g, eRx: [facility], 2 puffs Inhalation BID,Instr:DUE FOR APPT WITH DR MUSE Start Date: 02/09/16 Status: Ordered fluticasone 50 mcg/inh nasal spray 2 sprays, Nasal, BID, # 16 g, 0 Refill(s), other reason (Rx) Start Date: 02/08/16 Status: Ordered furosemide 20 mg oral tablet 20 mg 1 tabs, Oral, Daily, # 30 tabs, 3 Refill(s), Pharmacy: [facility], 1 tabs Oral Daily Start Date: 12/09/15 Status: Ordered Imdur 30 mg oral tablet, extended release 30 mg 1 tabs, Oral, qAM, # 90 tabs, 1 Refill(s), Pharmacy: [facility], 1 tabs Oral qAM Start Date: [...] pain, # 1 bottles, 11 Refill(s), Pharmacy: [facility], 1 tabs SubLingual q5min,PRN:as needed for chest pain Start Date: 02/08/16 Status: Ordered Plavix 75 mg oral tablet 75 mg 1 tabs, Oral, Daily, # 30 tabs, 0 Refill(s) Start Date: 02/08/16 Status: Ordered ProAir HFA 90 mcg/inh inhalation aerosol See Instructions, 2 puffs Inhalation q4hr,Instr:FOR PRN USE PATIENT DUE FOR APPT WITH DR MUSE, # 1 Each, eRx: [facility], 2 puffs Inhalation q4hr,Instr:FOR [...] Daily, # 30 Each, 3 Refill(s), Pharmacy: [facility], 1 Each Inhalation Daily Start Date: 12/09/15 Status: Ordered Super B Complex 1 tabs, Oral, Daily, 0 Refill(s) Start Date: 04/28/14 Status: Ordered Trusopt 2% ophthalmic solution See Instructions, INSTILL 1 DROP INTO THE RIGHT EYE THREE TIMES A DAY, # 10 unknown unit, 11 Refill(s), eRx: [facility] #[id number], INSTILL 1 DROP INTO THE RIGHT EYE THREE TIMES A DAY Start Date: 09/23/14 Status: Ordered Zoloft 100 mg oral tablet 100 mg 1 tabs, Oral, Daily, # 90 tabs, 1 Refill(s), Pharmacy: [facility], 1 tabs Oral Daily Start [...] Visit Note Author: Moose Muse MD Date: 02/23/16 Assessment/Plan Abnormal chest x-ray Ordered: XR Chest 2 Views CAD (coronary artery disease) Cough Ordered: XR Chest 2 Views Moderate persistent allergic asthma Orders: doxycycline, 100 mg 1 caps, Oral, BID, # 20 caps, 0 Refill(s), Pharmacy: [facility], 1 caps Oral BID Think there may still be an infectious component to his symptoms and we will treat with another round of antibiotics. We discussed the C. difficile associated with recurrent antibiotic use. At this point I don't see justification for systemic steroids. We will continue current approach. Request pulmonology consult for some assistance in long-term management decisions. He does have a history of coronary artery disease with recent stent, and prior history of cardiomyopathy and CHF. However I do not see any fluid overload component to the current situation. We discussed all of this. Follow-up for repeat x-ray in 2-3 weeks and otherwise when necessary.
--- OUTSIDE RECORDS SUMMARY | 2017-02-06 06:51 | XMS REPORT | Referral Summary ---
Author Author [facility] Organization [facility] Address Unknown Phone Unavailable Care Team Providers Care Cardiac Nurse Practitioner Name Role Phone Dena Muse Primary Care Physician [phone] Encounter Date(s): 08/12/15 - 08/12/15 [facility] [address] [place] [address] [place] [id number] Discharge Diagnosis: Dilated cardiomyopathy Discharge Diagnosis: Coronary [...] Daily, # 90 tabs, 1 Refill(s), Pharmacy: [facility] , 1 tabs Oral Daily Start Date: 12/04/15 Status: Ordered Dulera 200 mcg-5 mcg/inh inhalation aerosol See Instructions, 2 puffs Inhalation BID,Instr:DUE FOR APPT WITH DR MUSE, # 13 g, eRx: [facility], 2 puffs Inhalation BID,Instr:DUE FOR APPT WITH DR MUSE Start Date: 02/09/16 Status: Ordered fluticasone 50 mcg/inh nasal spray 2 sprays, Nasal, BID, # 16 g, 0 Refill(s), other reason (Rx) Start Date: 02/08/16 Status: Ordered furosemide 20 mg oral tablet 20 mg 1 tabs, Oral, Daily, # 30 tabs, 3 Refill(s), Pharmacy: [facility], 1 tabs Oral Daily Start Date: 12/09/15 Status: Ordered Imdur 30 mg oral tablet, extended release 30 mg 1 tabs, Oral, qAM, # 90 tabs, 1 Refill(s), Pharmacy: [facility], 1 tabs Oral qAM Start [...] pain, # 1 bottles, 11 Refill(s), Pharmacy: [facility], 1 tabs SubLingual q5min,PRN:as [...] MUSE, # 1 Each, eRx: [facility], 2 puffs Inhalation q4hr,Instr:FOR [...] Daily, # 30 Each, 3 Refill(s), Pharmacy: [facility], 1 Each Inhalation Daily Start Date: 12/09/15 Status: Ordered Super B Complex 1 tabs, Oral, Daily, 0 Refill(s) Start Date: 04/28/14 Status: Ordered Trusopt 2% ophthalmic solution See Instructions, INSTILL 1 DROP INTO THE RIGHT EYE THREE TIMES A DAY, # 10 unknown unit, 11 Refill(s), eRx: [facility] #[id number], INSTILL 1 DROP INTO THE RIGHT EYE THREE TIMES A DAY Start Date: 09/23/14 Status: Ordered Zoloft 100 mg oral tablet 100 mg 1 tabs, Oral, Daily, # 90 tabs, 1 Refill(s), Pharmacy: [facility], 1 tabs Oral Daily Start Date: 12/16/15 [...] # 60 tabs, 5 Refill(s), Pharmacy : [facility] #[id number], 1 tabs Oral TID
--- OUTSIDE RECORDS SUMMARY | 2017-02-06 06:51 | XMS REPORT | Referral Summary ---
Author Author [facility] Organization [facility] Address Unknown Phone Unavailable Care Team Providers Care Ruffling Machine Operator Name Role Phone Dena Muse Primary Care Physician [phone] Encounter Date(s): 02/08/16 - 02/08/16 [facility] [address] [place] [address] Discharge Diagnosis: Acute bronchitis Discharge Diagnosis: Allergic rhinitis Discharge Diagnosis: Coronary artery disease Discharge Diagnosis: Uncomplicated asthma Discharge Diagnosis: Benign essential hypertension Discharge Diagnosis: Pneumonia Discharge Disposition: 01-Home or Self Care Attending Physician: Moose Muse MD Admitting Physician: Moose Muse MD Vital Signs Most recent to 1 oldest [Reference Range]: Peripheral Pulse 75 bpm Rate [60-100 bpm] (02/08/16 4:13 PM) Blood Pressure 160/70 mmHg [90-140/60-90 mmHg] *HI* (02/08/16 4:13 PM) SpO2 95 % (02/08/16 4:13 PM) Problem List Condition Effective Dates Status [...] Resolved Glaucoma Resolved suspect(Confirmed) H/O chest < 7//14 Resolved pain(Confirmed) Hay fever(Confirmed) < 9//14 Resolved [...] reason (Rx) Start Date: 02/08/16 Status: Ordered Augmentin 875 mg-125 mg oral tablet 1 tabs, Oral, q12hr, X 10 days, # 20 tabs, 0 Refill(s), Pharmacy: [facility] Start Date: 02/08/16 Stop Date: 02/18/16 Status: Ordered carvedilol 25 mg oral tablet [...] Daily, # 90 tabs, 1 Refill(s), Pharmacy: [facility] , 1 tabs Oral Daily Start Date: 12/04/15 Status: Ordered Dulera 200 mcg-5 mcg/inh inhalation aerosol 2 puffs, Inhalation, BID, DUE FOR APPT WITH DR MUSE, # 13 g, 0 Refill(s), Pharmacy: [facility] Start Date: 01/13/16 Status: Ordered fluticasone 50 mcg/inh nasal spray 2 sprays, Nasal, BID, # 16 g, 0 Refill(s), other reason (Rx) Start Date: 02/08/16 Status: Ordered furosemide 20 mg oral tablet 20 mg 1 tabs, Oral, Daily, # 30 tabs, 3 Refill(s), Pharmacy: [facility], 1 tabs Oral Daily Start Date: 12/09/15 Status: Ordered Imdur 30 mg oral tablet, extended release 30 mg 1 tabs, Oral, qAM, # 90 tabs, 1 Refill(s), Pharmacy: [facility], 1 tabs Oral qAM Start Date: [...] pain, # 1 bottles, 11 Refill(s), Pharmacy: [place] [address], 1 tabs SubLingual q5min,PRN:as needed for chest pain Start Date: 02/08/16 Status: Ordered Plavix 75 mg oral tablet 75 mg 1 tabs, Oral, Daily, # 30 tabs, 0 Refill(s) Start Date: 02/08/16 Status: Ordered ProAir HFA 90 mcg/inh inhalation aerosol See Instructions, 2 puffs Inhalation q4hr,Instr:FOR PRN USE PATIENT DUE FOR APPT WITH DR MUSE, # 1 Each, eRx: [facility]28, 2 puffs Inhalation q4hr,Instr:FOR PRN USE [...] Daily, # 30 Each, 3 Refill(s), Pharmacy: [facility], 1 Each Inhalation Daily Start Date: 12/09/15 Status: Ordered Super B Complex 1 tabs, Oral, Daily, 0 Refill(s) Start Date: 04/28/14 Status: Ordered Trusopt 2% ophthalmic solution See Instructions, INSTILL 1 DROP INTO THE RIGHT EYE THREE TIMES A DAY, # 10 unknown unit, 11 Refill(s), eRx: [facility] #[id number], INSTILL 1 DROP INTO THE RIGHT EYE THREE TIMES A DAY Start Date: 09/23/14 Status: Ordered Zoloft 100 mg oral tablet 100 mg 1 tabs, Oral, Daily, # 90 tabs, 1 Refill(s), Pharmacy: [facility], 1 tabs Oral Daily Start [...] Visit Note Author: Moose Muse MD Date: 02/08/16 Assessment/Plan Acute bronchitis Allergic rhinitis Benign essential hypertension Coronary artery disease Pneumonia Uncomplicated asthma Orders: amoxicillin-clavulanate, 1 tabs, Oral, q12hr, X 10 days, # 20 tabs, 0 Refill(s), Pharmacy: [facility] aspirin, 81 mg 1 tabs, Oral, Daily, # 30 tabs, 0 Refill(s), other reason (Rx) carvedilol, 50 mg 2 tabs, Oral, BID, # 1 tabs, 0 Refill(s), other reason (Rx) clopidogrel, 75 mg 1 tabs, Oral, Daily, # 30 tabs, 0 Refill(s), other reason ( Rx) esomeprazole, 40 mg 1 Each, Oral, Daily, # 1 Each, 0 Refill(s), other reason ( Rx) fluticasone nasal, 2 sprays, Nasal, BID, # 16 g, 0 Refill(s), other reason (Rx ) montelukast, 10 mg 1 tabs, Oral, qPM, # 30 tabs, 0 Refill(s), other reason (Rx ) nitroglycerin, 0.4 mg 1 tabs, SubLingual, q5min, as needed for chest pain, # 1 bottles, 11 Refill(s), Pharmacy: [facility], 1 tabs SubLingual q5min,PRN:as needed for chest pain simvastatin, 20 mg 1 tabs, Oral, Bedtime (once a day), # 30 tabs, 0 Refill(s) , other reason (Rx) Clinically he does have acute respiratory infection, likely sinusitis/ bronchitis. Although it is of short duration and may be viral, in view of his other issues I would like to treat this with antibiotics. Augmentin prescribed. The chest x-ray of 01/21/16 did show right lower lobe airspace disease suggestive of pneumonia. We discussed the importance of follow-up and will plan a repeat chest x-ray in 2 weeks. He did have recent cardiac stent placed and was started on clopidogrel. He's been taking Nexium. We discussed the possible drug interaction we'll try to clarify with his dining service worker, Dr. Sherry Blake, whether this was used intentionally (he understood that she knew about the medication). We will also try to get additional information from his recent hospitalization. Monitor blood pressures at home and follow-up with me again in 2 weeks regarding respiratory infection, repeat chest x-ray, and blood pressures.
--- OUTSIDE RECORDS SUMMARY | 2017-02-06 06:51 | XMS REPORT | Continuity of Care Document ---
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 Proximal humerus fracture - *Acute Pigmentary open-angle glaucoma - *Chronic Glaucoma stage, unspecified - *Chronic Allergic rhinitis, cause unspecified - *Chronic Cough - *Chronic EXTRINSIC ASTHMA, UNSPECIFIED - *Uncontrolled Purulent bronchitis - Persistent Asthma - *Fair Control GERD (gastroesophageal reflux disease) - *Controlled Chronic rhinitis - Persistent Depression - *Controlled Influenza Vaccine - Asthma - *Chronic Hypertension, Benign - *Chronic GERD - *Controlled Hypercholesterolemia - *Chronic Allergic rhinitis, cause unspecified - *Chronic Cardiomyopathy - *Resolved Erectile dysfunction - *Chronic Proximal humerus fracture - *Stable Cough - *Acute Allergic rhinitis - Acute Exacerbation Hypertension, Benign - *Chronic Cardiomyopathy, Other Primary - *Chronic Depression - *Chronic GERD - *Chronic Hypercholesterolemia - *Chronic Hypertension, Benign - Chronic Cardiomyopathy, Other Primary - Chronic Depression - Chronic GERD - Chronic Hypercholesterolemia - Chronic 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 Proximal humerus fracture - *Stable Pigmentary glaucoma - *Chronic Proximal humerus fracture - *Stable Cardiomyopathy, Other Primary - *Chronic Chest Pain, Unspecified - *Resolved Right Heart Failure - *Chronic Hypertension, Unspecified - *Chronic Other and unspecified hyperlipidemia - *Chronic Proximal humerus fracture - *Acute Closed fracture of right proximal humerus - *Stable NEED FOR PROPHYLACTIC VACCINATION WITH COMBINED [id number] ( DTP) (DTAP) VACCINE - Hypertension, Benign - *Chronic Hypercholesterolemia - *Chronic GERD - *Chronic Asthma - *Chronic Chronic cough - *Chronic Depression - *Chronic Cardiomyopathy, Other Primary - *Chronic Hypertension, Benign - Chronic Hypercholesterolemia - Chronic GERD - Chronic Asthma - Chronic Depression - Chronic Cardiomyopathy, Other Primary - Chronic Fatigue / Malaise - *Chronic Proximal humerus fracture - *Stable PURE HYPERCHOLESTEROLEM - 311 - DEPRESSIVE DISORDER NEC - PREGLAUCOMA NOS - CORTICAL CATARACT - BENIGN HYPERTENSION - ANGINA PECTORIS NEC/NOS - CARDIOMEGALY - ASTHMA NOS - ESOPHAGEAL REFLUX - Bronchitis, Acute - Acute Asthma - *Acute Hypertension, Benign - *Fair Control Right elbow pain - *Acute Constipation, unspecified - *Acute Asthma - Improved Chronic rhinitis - *Stable Acute bronchitis - *Resolved Gastroesophageal reflux disease - *Stable Obesity - *Stable Family History Family Member Diagnosis Age At Onset Status Sister (Unknown) CONGENITAL HD Yes Mother (Unknown) Diabetes Yes Brother (Unknown) Cancer - prostate Yes Brother (Unknown) Cancer - kidney Yes Brother (Unknown) COPD Yes Mother (Unknown) Alzheimer's Disease Yes Father (Unknown) Heart disease Yes Sister (Unknown) Asthma Yes Social History Social History Element Description Quantity Unknown Allergies, Adverse Reactions, Alerts Substance Reaction Severity Status Unknown Medications Medication Instructions Dosage Effective Dates (start - stop) Status Claritin 10 mg tablet takes 1 tab at hs - Active aspirin 325 mg tablet take 1 tablet (325MG) by oral route every day 325 MG - Active Centrum Silver tablet TAKES 1 TAB. QD - Active Super B-50 Complex Plus tablet take 1 by Oral route every day 0 2011 - Active ProAir HFA 90 mcg/actuation aerosol inhaler inhale 2 sprays into lungs every 4 hours as needed - Active Trusopt 2 % eye drops instill 1 drop OD TID - Active Advair HFA 230 mcg-21 mcg/actuation aerosol inhaler inhale 2 puff by inhalation route 2 times every day in the morning and evening 0 - Active fluticasone 50 mcg/actuation nasal spray,suspension inhale 1 spray (50MCG) by intranasal route every day in each nostril 50 MCG - Active fluorometholone 0.1 % eye drops,suspension Starting after your procedure, place 1 drop in the surgical eye 4 times per day for 1 week. - Active Spiriva with HandiHaler 18 mcg & inhalation capsules inhale 1 capsule (18MCG) by inhalation route every day 18 MCG - Active amlodipine 2.5 mg tablet Take 1 tablet by mouth every day. - Active Nexium 40 mg capsule,delayed release Take 1 capsule by mouth every day. - Active Zoloft 100 mg tablet Take 1 tablet by mouth every day. - Active simvastatin 20 mg tablet Take 1 by mouth every day. - Active nitroglycerin 0.4 mg sublingual tablet TAKE 1 TABLET SL AT ONSET OF CHEST PAIN REPEAT EVERY 5 MINUTES IF NEEDED FOR 15 MINUTES - Active Cozaar 100 mg tablet Take 1 tablet by mouth every day. - Active Coreg 25 mg tablet Chew/Swallow 1 tablet by mouth twice a day. 2013 - Active Singulair 10 mg tablet Take 1 tablet by mouth every day. - Active Lasix 20 mg tablet Take 1 tablet by mouth every day. - Active Immunizations Vaccine Date Status Comments Flu (split) (3 yrs or older) completed Tdap (Boostrix r) completed Results Test Name Date and Time Measure Units Reference Range Abnormal Flag Comments Unknown Vital Signs Date / Time: Height Weight Pulse Rate Blood Pressure Temperature Unknown Procedures Procedure Date Unknown Encounters [facility] Patient [facility] Patient Visit [facility] Ophthamology Patient Visit [facility] Tashi Pulmo Patient Visit [facility] Patient Visit [facility] Ophthamology Patient Visit [facility] Patient Visit [facility] Mur Card Patient Visit [facility] Patient Visit [facility] Patient Visit [facility] Patient Visit [facility] Patient Visit [facility] Patient Visit [facility] Patient Visit [facility] Patient [facility] [place] [facility] Patient [facility] [place] [facility] Patient [facility] [place] Patient [facility] [place] Patient Visit [facility] [place] Patient [facility] [place] Patient Visit [facility] Patient [facility] Patient Visit [facility] T[place] Pulmo Advance Directives Directive Effective Date Unknown
--- OUTSIDE RECORDS SUMMARY | 2017-02-06 06:51 | XMS REPORT | Continuity of Care Document ---
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 - Chronic Depression - *Controlled Influenza Vaccine - Asthma [...] - Chronic Pigmentary open-angle glaucoma - *Chronic Proximal humerus fracture - *Stable Pigmentary glaucoma - *Chronic Proximal humerus fracture - *Stable Cardiomyopathy, Other Primary - *Chronic Chest Pain, Unspecified - *Resolved Right Heart Failure - *Chronic Hypertension, Unspecified - *Chronic Other and unspecified hyperlipidemia - *Chronic Proximal humerus fracture - *Acute Closed fracture of right proximal humerus - *Stable NEED FOR PROPHYLACTIC VACCINATION WITH COMBINED [id number] ( DTP) (DTAP) VACCINE - Hypertension, Benign [...] Dosage Effective Dates (start - stop) Status nitroglycerin 0.4 mg sublingual tablet TAKE 1 TABLET SL AT ONSET OF CHEST PAIN REPEAT EVERY 5 MINUTES IF NEEDED FOR 15 MINUTES - Active Claritin 10 mg tablet takes 1 tab at hs - Active aspirin 325 mg tablet take 1 tablet (325MG) by oral route every day 325 MG - Active Centrum Silver tablet TAKES 1 TAB. QD - Active Super B-50 Complex Plus tablet take 1 by Oral route every day 0 2011 - Active Cozaar 100 mg tablet Take 1 tablet by mouth every day. - Active Coreg 25 mg tablet Chew/Swallow 1 tablet by mouth twice a day. 2012 - Active ProAir HFA 90 mcg/actuation aerosol inhaler inhale 2 sprays into lungs every 4 hours as needed - Active Trusopt 2 % eye drops instill 1 drop OD TID - Active Lasix 20 mg tablet Take 1 tablet by mouth every day. - Active Advair HFA 230 mcg-21 mcg/actuation [...] per day for 1 week. - Active Singulair 10 mg tablet Take 1 tablet by mouth every day. - Active Spiriva with HandiHaler 18 mcg [...] 1 by mouth every day. - Active Immunizations Vaccine Date Status Comments Flu (split) (3 yrs or older) completed Tdap (Boostrix r) completed Results Test Name Date and Time Measure Units Reference Range Abnormal Flag Comments Unknown Vital Signs Date / Time: Height Weight Pulse Rate Blood Pressure Temperature Unknown Procedures Procedure Date Unknown Encounters Encounter Location Date Patient Visit [facility] Ophamology Patient Visit [facility] Patient Visit [facility] Patient Visit [facility] Patient Visit [facility] Patient [facility] Ophthamology Patient Visit [facility] Patient Visit [facility] Tashi Pulmo Patient Visit [facility] Patient [facility] Ophthamology Patient Visit [facility] Patient Visit [facility] Patient Visit [facility] [place] Patient Visit [facility] Patient Visit [facility] Patient [facility] [place] Patient Visit [facility] Ophthamology Patient Visit [facility] [facility] [place] [facility] [place] [facility]ham[facility] [place] [facility] [place] [place] [facility] [place] [facility] [place] [facility] Patient Visit [facility] Visit [facility] Patient Visit [facility] New Patient Visit [facility] [place] Pulmo Advance Directives Directive Effective Date Unknown
--- OUTSIDE RECORDS SUMMARY | 2017-02-06 06:51 | XMS REPORT | Referral Summary ---
Author Author [facility] Organization [facility] Address Unknown Phone Unavailable Care Team Providers Care Library Clerk Name Role Phone Dena Muse Primary Care Physician [phone] Encounter [facility] Date(s): 04/20/15 - 04/20/15 [facility] [address] [place] [address] CRISTIN Trevino [id number] Discharge Diagnosis: Knee laceration Discharge Disposition: 01-Home or Self Care Attending Physician: Farhan Lei MD Admitting Physician: Farhan Lei MD Referring Physician: Moose Muse MD Vital Signs Most recent to 1 oldest [Reference Range]: Temperature Tympanic 35.8 degC [36.6-38.1 degC] *LOW* (04/20/15 10:02 AM) Peripheral Pulse 68 bpm Rate [60-100 bpm] (04/20/15 10:02 AM) Respiratory Rate 16 br/min [14-20 br/min] (04/20/15 10:02 AM) Blood Pressure 116/68 mmHg [90-140/60-90 mmHg] (04/20/15 10:02 AM) SpO2 95 % (04/20/15 10:02 AM) Problem List Condition Effective Dates Status [...] Daily, # 30 Each, 2 Refill(s), Pharmacy: [facility], 1 tabs Oral Daily Start Date: 10/28/15 Status: Ordered carvedilol 25 mg oral tablet 25 mg 1 tabs, Oral, TID, # 60 tabs, 5 Refill(s), Pharmacy: [facility] # [id number], 1 tabs Oral TID Start Date: 08/12/15 Status: Ordered Centrum Silver oral tablet 1 tabs, Oral, Daily, # 30 tabs, 0 Refill(s) Start Date: 04/28/14 Status: Ordered Coreg 25 mg oral tablet See Instructions, TAKE ONE TABLET BY MOUTH TWICE A DAY, # 180 tabs, eRx: [facility] #[id number], TAKE ONE TABLET BY MOUTH TWICE A DAY Start Date: 06/29/15 Status: Ordered Cozaar 100 mg oral tablet See Instructions, TAKE ONE TABLET BY MOUTH DAILY, # 90 tabs, 1 Refill(s), Pharmacy: [facility], TAKE ONE TABLET BY MOUTH DAILY Start Date: 09/07/15 Status: Ordered Dulera 200 mcg-5 mcg/inh inhalation aerosol See Instructions, INHALE TWO PUFFS INTO LUNGS TWICE A DAY, # 13 unknown unit, 4 Refill(s), eRx: [facility] #[id number], INHALE TWO PUFFS INTO LUNGS TWICE A DAY Start Date: 08/31/15 Status: Ordered Ecotrin 325 mg oral delayed release tablet 1 tabs, Oral, Daily, 0 Refill(s) Start Date: 04/28/14 Status: Ordered furosemide 20 mg oral tablet See Instructions, TAKE ONE TABLET BY MOUTH DAILY, # 30 tabs, 4 Refill(s), eRx: [facility] #[id number], TAKE ONE TABLET BY MOUTH DAILY Start Date: 07/09/15 Status: Ordered Imdur 30 mg oral tablet, extended release 30 mg 1 tabs, Oral, qAM, # 90 tabs, 1 Refill(s), Pharmacy: [facility], 1 tabs Oral qAM Start Date: 09/17/15 Stop Date: 11/16/15 Status: Ordered NexIUM 40 mg oral delayed release capsule 40 mg 1 caps, Oral, Daily, APPROVED THRU 04/23/2016 APPROVAL# [id number], # 90 caps , 4 Refill(s), Pharmacy: [facility] #[id number], 1 caps Oral Daily,Instr: APPROVED THRU 04/23/2016 APPROVAL# [id number] Start Date: 04/30/15 Status: Ordered Nitrostat 0.4 mg sublingual tablet 1 tabs, SubLingual, q5min, as needed for chest pain, # 100 tabs, 0 Refill(s) Start Date: 04/28/14 Status: Ordered ProAir HFA 90 mcg/inh inhalation aerosol See Instructions, INHALE TWO PUFFS INTO LUNGS EVERY 4 HOURS NEEDED., # 1 Each , 6 Refill(s), Pharmacy: [facility] #[id number] Start Date: 03/06/15 Status: Ordered simvastatin 20 mg oral tablet See Instructions, TAKE ONE TABLET BY MOUTH EVERY NIGHT AT BEDTIME, # 30 tabs, 8 Refill(s), eRx: [facility] #[id number], TAKE ONE TABLET BY MOUTH EVERY NIGHT AT BEDTIME Start Date: 03/24/15 Status: Ordered Singulair 10 mg oral tablet See Instructions, TAKE ONE TABLET BY MOUTH ONCE A DAY, # 90 tabs, 1 Refill(s), eRx: [facility] #[id number], TAKE ONE TABLET BY MOUTH ONCE A DAY Start Date: 06/17/15 Status: Ordered Spiriva 18 mcg inhalation capsule See Instructions, INHALE THE CONTENTS OF ONE CAPSULE INTO LUNGS ONCE DAILY, USE 2 INHALATIONS FOR EACH DOSE, # 30 caps, 6 Refill(s), Pharmacy: [id number], INHALE THE CONTENTS OF ONE CAPSULE INTO LUNGS ONCE DAILY, USE 2 INHALATIONS FOR EACH... Start Date: 09/07/15 Status: Ordered Super B Complex 1 tabs, Oral, Daily, 0 Refill(s) Start Date: 04/28/14 Status: Ordered Trusopt 2% ophthalmic solution See Instructions, INSTILL 1 DROP INTO THE RIGHT EYE THREE TIMES A DAY, # 10 unknown unit, 11 Refill(s), eRx: [facility] #[id number], INSTILL 1 DROP INTO THE RIGHT EYE THREE TIMES A DAY Start Date: 09/23/14 Status: Ordered Zoloft 100 mg oral tablet 100 mg 1 tabs, Oral, Daily, # 90 tabs, 1 Refill(s), Pharmacy: [facility], 1 tabs Oral Daily Start [...] Extracted from: Title: Ambulatory Patient Education Author: Farhan Lei MD Date: 04/20 Family Medicine Laceration Care, Adult A laceration is a cut or lesion that goes through all layers of the skin and into the tissue just beneath the skin. TREATMENT Some lacerations may not require closure. Some lacerations may not be able to be closed due to an increased risk of infection. It is important to see your caregiver as soon as possible after an injury to minimize the risk of infection and maximize the opportunity for successful closure. If closure is appropriate, pain medicines may be given, if needed. The wound will be cleaned to help prevent infection. Your caregiver will use stitches ( sutures ), yane, wound glue (adhesive ), or skin adhesive strips to repair the laceration. These tools bring the skin edges together to allow for faster healing and a better cosmetic outcome. However, all wounds will heal with a scar. Once the wound has healed, scarring can be minimized by covering the wound with sunscreen during the day for 1 full year. HOME CARE INSTRUCTIONS For sutures or yane: Keep the wound clean and dry. If you were given a bandage (dressing ), you should change it at least once a day. Also, change the dressing if it becomes wet or dirty, or as directed by your caregiver. Wash the wound with soap and water 2 times a day. Rinse the wound off with water to remove all soap. Pat the wound dry with a clean towel. After cleaning, apply a thin layer of the antibiotic ointment as recommended by your caregiver. This will help prevent infection and keep the dressing from sticking. You may shower as usual after the first 24 hours. Do not soak the wound in water until the sutures are removed. Only take [id number] or prescription medicines for pain, discomfort, or fever as directed by your caregiver. Get your sutures or yane removed as directed by your caregiver. For skin adhesive strips: Keep the wound clean and dry. Do not get the skin adhesive strips wet. You may bathe carefully, using caution to keep the wound dry. If the wound gets wet, pat it dry with a clean towel. Skin adhesive strips will fall off on their own. You may trim the strips as the wound heals. Do not remove skin adhesive strips that are still stuck to the wound. They will fall off in time. For wound adhesive: You may briefly wet your wound in the shower or bath. Do not soak or scrub the wound. Do not swim. Avoid periods of heavy perspiration until the skin adhesive has fallen off on its own. After showering or bathing, gently pat the wound dry with a clean towel. Do not apply liquid medicine, cream medicine, or ointment medicine to your wound while the skin adhesive is in place. This may loosen the film before your wound is healed. If a dressing is placed over the wound, be careful not to apply tape directly over the skin adhesive. This may cause the adhesive to be pulled off before the wound is healed. Avoid prolonged exposure to sunlight or tanning lamps while the skin adhesive is in place. Exposure to ultraviolet light in the first year will darken the scar. The skin adhesive will usually remain in place for 5 to 10 days, then naturally fall off the skin. Do not pick at the adhesive film. You may need a tetanus shot if: You cannot remember when you had your last tetanus shot. You have never had a tetanus shot. If you get a tetanus shot, your arm may swell, get red, and feel warm to the touch. This is common and not a problem. If you need a tetanus shot and you choose not to have one, there is a rare chance of getting tetanus. Sickness from tetanus can be serious. SEEK MEDICAL CARE IF: You have redness, swelling, or increasing pain in the wound. You see a red line that goes away from the wound. You have yellowish-white fluid (pus ) coming from the wound. You have a fever. You notice a bad smell coming from the wound or dressing. Your wound breaks open before or after sutures have been removed. You notice something coming out of the wound such as wood or glass. Your wound is on your hand or foot and you cannot move a finger or toe. SEEK IMMEDIATE MEDICAL CARE IF: Your pain is not controlled with prescribed medicine. You have severe swelling around the wound causing pain and numbness or a change in color in your arm, hand, leg, or foot. Your wound splits open and starts bleeding. You have worsening numbness, weakness, or loss of function of any joint around or beyond the wound. You develop painful lumps near the wound or on the skin anywhere on your body. MAKE SURE YOU: Understand these instructions. Will watch your condition. Will get help right away if you are not doing well or get worse. Document Released: 10/30/2006 Document Revised: 01/21/2013 Document Reviewed: [facility] Patient Information 2014 [employer]. Follow Up With: Where: When: Moose Muse [address] [place] [address] Drive; [place] [facility] [place] [address] [place] (1) Within 1 to 2 weeks Comments: Extracted from: Title: Office Visit Note Author: Farhan Lei MD Date: 04/20/15 Assessment/Plan Knee laceration He will continue with his present dressings as needed. He was advised to return to work on 04-23-15. He was advised to avoid flexing the knee excessively to avoid pulling out sutures. An email was sent to Dr. Muse regarding having staff schedule patient for suture removal.
--- OUTSIDE RECORDS SUMMARY | 2017-02-06 06:51 | XMS REPORT ---
Author Author Ryan Masterson Organization [facility] Address [address] [place] [address] Care Team Providers Care Factory Assembler Name Role Phone Ryan Masterson Unavailable [phone] PROBLEMS Type Condition ICD9-CM Code TNI55-EL Code Onset Dates Condition Status SNOMED Code Problem Dyslipidemia E78.5 Active 364626652 Problem Dilated cardiomyopathy I42.0 Active 957303175 Problem Edema extremities R60.0 Active 503292786 Problem CHF (congestive heart failure), NYHA class II I50.9 Active 26558264 Problem Stented coronary artery Z95.5 Active 951071726 Problem Hypertension I10 Active 83465209 Problem Exercise counseling Z71.89 Active 213690534 Problem CAD (coronary artery disease) I25.10 Active 87051419 ALLERGIES Unknown Allergies SOCIAL HISTORY No smoking Hx information available PLAN OF CARE VITAL SIGNS MEDICATIONS Unknown Medications RESULTS No Results PROCEDURES No Known procedures IMMUNIZATIONS No Known Immunizations
--- OUTSIDE RECORDS SUMMARY | 2017-02-06 06:52 | XMS REPORT | Continuity of Care Document ---
Author Author Regla COLE, [facility] Ambulatory Address [address] [facility] [place] [address] Phone Care Team Providers Care Pilot Plant Research Technician Name Role Phone Moose Muse PP Unavailable [...] *Stable NEED FOR PROPHYLACTIC VACCINATION WITH COMBINED [id number] ( DTP) (DTAP) VACCINE - Hypertension, Benign [...] Dosage Effective Dates (start - stop) Status fluorometholone 0.1 % eye drops,suspension Starting after your procedure, place 1 drop in the surgical eye 4 times per day for 1 week. - Active nitroglycerin 0.4 mg sublingual tablet [...] in each nostril 50 MCG - Active simvastatin 20 mg tablet Take 1 by mouth every day. - Active Zoloft 100 mg tablet Take 1 tablet by mouth every day. - Active Singulair 10 mg tablet Take 1 tablet by mouth every day. - Active Spiriva with HandiHaler 18 mcg & inhalation capsules inhale 1 capsule (18MCG) by inhalation route every day 18 MCG - Active amlodipine 2.5 mg tablet Take 1 tablet by mouth every day. - Active Nexium 40 mg capsule,delayed release Take 1 capsule by mouth every day. - Active Immunizations Vaccine Date Status Comments Flu (split) (3 yrs or older) completed Tdap (Boostrix r) completed Results Test Name Date and Time Measure Units Reference Range Abnormal Flag Comments Unknown Vital Signs Date / Time: Height Weight Pulse Rate Blood Pressure Temperature Unknown Procedures Procedure Date Unknown Encounters Encounter Location Date Patient Visit [facility] Ophthamology Patient Visit [facility] Patient Visit [facility] Patient Visit [facility] Patient Visit [facility] Patient [facility] Ophthamology Patient [facility] Patient Visit [facility] Tashi Pulmo Patient Visit [facility] Patient [facility] Patient [facility] Patient [facility] Patient [facility] Patient Visit [facility] Tashi Card Patient Visit [facility] Patient Visit [facility] [place] Patient Visit [facility] Ophthamology [facility] Visit [facility] Patient Visit [facility] Tashi Pulmo [facility] [place] Patient Visit [facility]hamology [facility] Patient Visit [facility] [place] [facility] [place] [facility] [place] Patient Visit [facility] [place] Patient Visit [facility] [place] [facility] WH[facility] Patient Visit [facility] New Ortho Patient Visit [facility] Patient Visit [facility] Patient Visit [facility] Patient Visit [facility] Tashi Rodriguezmo Advance Directives Directive Effective Date Unknown
--- OUTSIDE RECORDS SUMMARY | 2017-02-06 06:52 | XMS REPORT | Referral Summary ---
Author Author [facility] Organization [facility] Address Unknown Phone Unavailable Care Team Providers Care Sofa Back Upholsterer Name Role Phone Dena Muse Primary Care Physician [phone] Encounter [facility] [id number] Date(s): 10/14/16 - 10/14/16 [facility] [address] [place], [place] [address] Discharge Diagnosis: Bronchiolitis Discharge Diagnosis: History of pseudomonas pneumonia Discharge Diagnosis: Pulmonary nodule Discharge Disposition: 01-Home or Self Care Attending Physician: Neil Mehta MD Admitting Physician: Neil Mehta MD Vital Signs Most recent to 1 oldest [Reference Range]: Peripheral Pulse 63 bpm Rate [60-100 bpm] (10/14/16 11:23 AM) Respiratory Rate 18 br/min [14-20 br/min] (10/14/16 11:23 AM) Blood Pressure 138/80 mmHg [90-140/60-90 mmHg] (10/14/16 11:23 AM) SpO2 96 % (10/14/16 11:23 AM) Problem List Condition Effective Dates Status [...] < 7//14 Resolved pain(Confirmed) Hay fever(Confirmed) < 07/21/14 Resolved [...] 0 Refill(s) Start Date: 08/04/16 Status: Ordered carvedilol 25 mg oral tablet See Instructions, TAKE 2 TABLETS 2 TIMES DAILY, # 120 tabs, 3 Refill(s), eRx: [facility], TAKE 2 TABLETS 2 TIMES DAILY Start Date: 10/10/16 Status: Ordered Centrum Silver oral tablet 1 [...] (Rx ) Start Date: 06/03/16 Status: Ordered Cozaar 100 mg oral tablet 100 mg 1 tabs, Oral, Daily, # 90 tabs, 1 Refill(s), Pharmacy: [facility] , 1 tabs Oral Daily Start Date: 08/02/16 Status: Ordered fluticasone 50 mcg/inh nasal spray 2 sprays, Nasal, BID, # 16 g, 0 Refill(s), other reason (Rx) Start Date: 02/08/16 Status: Ordered furosemide 20 mg oral tablet See Instructions, TAKE ONE TABLET BY MOUTH ONCE DAILY, # 90 tabs, 3 Refill(s), Pharmacy: [facility], TAKE ONE TABLET BY MOUTH ONCE DAILY Start Date: 08/02/16 Status: Ordered montelukast 10 mg oral tablet See Instructions, TAKE ONE TABLET BY MOUTH ONCE DAILY, # 90 tabs, 3 Refill(s), Pharmacy: [facility], TAKE ONE TABLET BY MOUTH [...] pain, # 1 bottles, 11 Refill(s), Pharmacy: [place] [id number], 1 tabs SubLingual q5min,PRN:as needed for chest pain Start Date: 02/08/16 Status: Ordered ProAir HFA 90 mcg/inh inhalation aerosol See Instructions, 2 puffs Inhalation q4hr,Instr:FOR PRN USE, # 1 Each, 6 Refill( s), Pharmacy: [place] [address] Start Date: 04/26/16 Status: Ordered sertraline 100 mg oral tablet See Instructions, TAKE ONE TABLET BY MOUTH ONCE DAILY, # 90 tabs, 3 Refill(s), Pharmacy: [facility], TAKE ONE TABLET BY MOUTH ONCE DAILY Start Date: 08/02/16 Status: Ordered simvastatin 20 mg oral tablet See Instructions, TAKE ONE TABLET BY MOUTH ONCE DAILY, # 90 tabs, 3 Refill(s), Pharmacy: [facility], TAKE ONE TABLET BY [...] # 10 unknown unit, 11 Refill(s), [id number], INSTILL 1 DROP INTO THE RIGHT EYE [...] Diagnosis Body Site Bronchoscopy - SN1 04/14/16 Placement of stent in cardiac conduit 12/2015 Cardiac catheterization2, 3 2013 Shoulder repair, left [...] Office Visit Note Author: Neil Mehta Date: 10/14/16 Steven COLE Assessment/Plan 1.Pulmonary nodule Ordered: CT Thorax w/o Contrast 2.History of pseudomonas pneumonia 3.Bronchiolitis Patient is mostly asymptomatic at this point. CT chest showsmarked improvement andinfiltrate with clearing ofall the tree and bud pattern addition to theupper lobe nodule. At this timewill discontinue theDulera and assess the patient. The patient has a milligrams in the cough and he is to resume the Dulera. Otherwise we will schedule a follow-up with the patient in 12 months.
--- OUTSIDE RECORDS SUMMARY | 2017-02-06 06:52 | XMS REPORT | Referral Summary ---
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 Discharge Diagnosis: Colon cancer screening Discharge Diagnosis: CAD (coronary artery disease) Discharge Disposition: 01-Home or Self Care Attending Physician: Aditya Chaney MD Admitting Physician: Aditya Chaney MD Referring Physician: Moose Muse MD Vital Signs Most recent to 1 oldest [Reference Range]: Temperature Tympanic 37 degC [36.6-38.1 degC] (09/06/16 1:24 PM) Peripheral Pulse 70 bpm Rate [60-100 bpm] (09/06/16 1:24 PM) Blood Pressure 112/52 mmHg [90-140/60-90 mmHg] (09/06/16 1:24 PM) SpO2 97 % (09/06/16 1:24 PM) Problem List Condition Effective Dates Status [...] BID, # 120 tabs, 0 Refill(s), Pharmacy: [facility], 2 tabs Oral BID Start Date: 08/02/16 Status: Ordered Cozaar 100 mg oral tablet 100 mg 1 tabs, Oral, Daily, # 90 tabs, 1 Refill(s), Pharmacy: [facility] , 1 tabs Oral Daily Start Date: 08/02/16 Status: Ordered Dulera 200 mcg-5 mcg/inh inhalation aerosol 2 puffs, Inhalation, BID, # 13 g, 6 Refill(s), Pharmacy: [facility]27 Start Date: 03/31/16 Status: Ordered fluticasone 50 mcg/inh nasal spray 2 sprays, Nasal, BID, # 16 g, 0 Refill(s), other reason (Rx) Start Date: 02/08/16 Status: Ordered furosemide 20 mg oral tablet See Instructions, TAKE ONE TABLET BY MOUTH ONCE DAILY, # 90 tabs, 3 Refill(s), Pharmacy: [facility], TAKE ONE TABLET BY MOUTH ONCE DAILY [...] DAILY, # 90 tabs, 3 Refill(s), Pharmacy: [facility], TAKE ONE TABLET BY MOUTH ONCE DAILY Start Date: 08/02/16 Status: Ordered NexIUM 40 mg oral powder for reconstitution, delayed release 40 mg 1 Each, Oral, Daily, # 1 Each, 0 Refill(s), other reason (Rx) Start Date: 02/08/16 Status: Ordered Nitrostat 0.4 mg sublingual tablet 0.4 mg 1 tabs, SubLingual, q5min, as needed for chest pain, # 1 bottles, 11 Refill(s), Pharmacy: [facility], 1 tabs SubLingual q5min,PRN:as needed for chest pain Start Date: 02/08/16 Status: Ordered ProAir HFA 90 mcg/inh inhalation aerosol See Instructions, 2 puffs Inhalation q4hr,Instr:FOR PRN USE, # 1 Each, 6 Refill( s), Pharmacy: [facility]27 Start Date: 04/26/16 Status: Ordered sertraline 100 mg oral tablet See Instructions, TAKE ONE TABLET BY MOUTH ONCE DAILY, # 90 tabs, 3 Refill(s), Pharmacy: [facility], TAKE ONE TABLET BY MOUTH ONCE DAILY Start Date: 08/02/16 Status: Ordered simvastatin 20 mg oral tablet See Instructions, TAKE ONE TABLET BY MOUTH ONCE DAILY, # 90 tabs, 3 Refill(s), Pharmacy: [facility], TAKE ONE TABLET BY MOUTH ONCE [...] 10 unknown unit, 11 Refill(s), eRx: [facility] #[id number], INSTILL 1 DROP INTO THE RIGHT EYE [...] Extracted from: Title: Office Visit Note Author: Aditya Chaney MD Date: 09/06/16 Assessment/Plan 1.Colon cancer screening Ordered: Office Visit Level 4 New 50033 2.CAD (coronary artery disease) Ordered: Office Visit Level 4 New 45241 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 I did review the patient's chart including a pulmonology note from August 04, 2016. Reviewed office note performed by his PCP from August 01, 2016. I informed the patient thathe is in need of a colonoscopy from a screening standpoint given the fact thatit has been more than 10 years since his last endoscopic evaluation of his colon. I informed the patient however given the fact that he had a coronary stent placed earlier this yearand was placed on Plavix I would recommend that we would delay hiscolonoscopy until December of next year. I informed the patient that the recommendations are thatPlavix not be discontinued unless it is aemergent issuefor one year after placement of a coronary stent. I do not feel that his colonoscopy is that of a urgent or emergent nature. I did go ahead and give the patient typical bowel prep instructions and informed him that we would schedule him by phonein December of next yearunless she should developadditional medical morbidities in the meantime.
--- OUTSIDE RECORDS SUMMARY | 2017-02-06 06:52 | XMS REPORT | Continuity of Care Document ---
Author Author Sarah Bains RN, [facility] Ambulatory Address [address] [place] [id number] Phone Unavailable Care Team Providers Care Supervisor Metal Placing Name Role Phone Moose Muse PP Unavailable Payers Payer name Insurance type Covered republican ID Authorization(s) Unknown Problems Condition Effective Dates (start - stop) Clinical Status NEED FOR PROPHYLACTIC VACCINATION WITH COMBINED [id number] ( DTP) (DTAP) VACCINE - Hypertension, Benign - *Chronic Hypercholesterolemia - *Chronic GERD - *Chronic Asthma - *Chronic Chronic cough - *Chronic Depression - *Chronic Cardiomyopathy, Other Primary - *Chronic Hypertension, Benign - Chronic Hypercholesterolemia - Chronic GERD - Chronic Asthma - Chronic Depression - Chronic Cardiomyopathy, Other Primary - Chronic Fatigue / Malaise - *Chronic Bronchitis, Acute - *Acute Asthma - *Chronic [...] fracture of right proximal humerus - *Stable Proximal humerus fracture - *Stable PURE HYPERCHOLESTEROLEM [...] route every day 0 2011 - Active Coreg 25 mg tablet Chew/Swallow [...] - Active Immunizations Vaccine Date Status Comments Tdap (Boostrix r) completed Flu (split) (3 yrs or older) completed Results Test Name Date and Time Measure Units Reference Range Abnormal Flag Comments Panel Description: CBC WBC 09:22:00 8.6 K/uL 4.8-10.8 RBC 09:22:00 4.96 M/uL 4.60-6.20 HGB 09:22:00 14.9 g/dl 14.0-18.0 HCT 09:22:00 43.1 % 42.0-52.0 MCV 09:22:00 86.9 fL 82.0-99.0 MCH 09:22:00 30.0 pg 27.0-32.0 MCHC 09:22:00 34.6 g/dL 32.0-36.0 RDW 09:22:00 13.8 % 11.5-14.5 MPV 09:22:00 10.2 fL 8.8-14.8 Platelet Count 09:22:00 204 K/uL 150-400 Immature Granulocytes 09:22:00 0.2 % 0.0-1.0 Absolute Neutrophils 09:22:00 6.42 THOUS 1.90-7.00 Absolute Lymphocytes 09:22:00 1.33 THOUS 0.80-3.30 Absolute Monocytes 09:22:00 0.64 THOUS 0.30-1.00 Absolute Eosinophils 09:22:00 0.15 THOUS 0.00-0.50 Absolute Basophils 09:22:00 0.02 THOUS 0.00-0.20 Neutrophils 09:22:00 75 % 51-75 Lymphocytes 09:22:00 16 % 20-46 L Monocytes 09:22:00 8 % 4-11 Eosinophils 09:22:00 2 % 0-4 Basophils 09:22:00 0 % 0-2 Testing performed at [facility] Reference Lab [address] [facility] [address] High Pressure Boiler Operator Gildardo Moss MD Panel Description: Chemistry Profile Glucose 09:22:00 111 mg/dL 70-99 H BUN 09:22:00 16 mg/dL 8-26 Creatinine 09:22:00 0.88 mg/dL 0.72-1.25 Calcium 09:22:00 9.8 mg/dL 8.9-10.5 Sodium 09:22:00 141 mEq/L 135-144 Potassium 09:22:00 4.3 mEq/L 3.5-5.2 Chloride 09:22:00 103 mEq/L 99-111 CO2 09:22:00 29 mEq/L 23-31 Albumin 09:22:00 4.2 g/dL 3.4-4.8 Bilirubin Total 09:22:00 1.1 mg/dL 0.2-1.2 Alkaline Phosphatase 09:22:00 98 U/L 40-150 Protein 09:22:00 7.1 g/dL 6.2-8.1 ALT (SGPT) 09:22:00 17 U/L 0-55 AST (SGOT) 09:22:00 19 U/L 5-34 Anion Gap 09:22:00 9 3-20 Globulin 09:22:00 2.9 g/dL 1.8-4.0 Testing performed at [facility] Reference Lab [address] [place] [address] High Pressure Boiler Operator Gildardo Moss MD Panel Description: Lipid Profile-[facility] Cholesterol 09:22:00 155 mg/dL 0-199 Triglycerides 09:22:00 102 mg/dL 0-149 HDL Cholesterol 09:22:00 42 mg/dL 40-84 LDL Cholesterol 09:22:00 93 mg/dL 0-130 VLDL Cholesterol 09:22:00 20 mg/dL 0-28 Cardiac Risk 09:22:00 3.7 0.0-5.7 Testing performed at [facility] Reference Lab [facility] [address] [place] [address] High Pressure Boiler Operator Gildardo Moss MD Panel Description: Non-HDL Cholesterol-[facility] Non-HDL Cholesterol 09:22:00 113 mg/dL 0-159 Testing performed at [facility] Reference Lab [address] [place] [address] High Pressure Boiler Operator Gildardo Moss MD Panel Description: TSH-[facility] TSH 09:22:00 1.60 uIU/mL 0.35-4.94 Testing performed at [facility] Reference Lab [facility] [address] [place] [address] High Pressure Boiler Operator Gildardo Moss MD Panel Description: EGFR-[facility] eGFR 09:22:00 >60 mL/min >60 Multiply eGFR results by 1.21 for race.Testing performed at [facility] Reference Lab [address] [address] High Pressure Boiler Operator Gildardo Moss MD Vital Signs Date / Time: Height Weight Pulse Rate Blood Pressure Temperature Feb-18-2014/08:06:00 67.50 in 237.00 lbs 78 /min 128/72 mm[Hg] 97.6 F Procedures Procedure Date TDAP VACCINE >7 IM IMMUNIZ,ADMIN,SINGLE [facility]counters En[facility] [place] [facility] Patient [facility] Patient [facility] [place] Patient [facility] [place] Patient [facility] [place] Patient [facility] [place] Patient [facility] [place] Patient Visit [facility] [place] Patient [facility] Pulmo Advance Directives Directive Effective Date Unknown
--- OUTSIDE RECORDS SUMMARY | 2017-02-06 06:52 | XMS REPORT | Referral Summary ---
Author Author [facility] Organization [facility] Address Unknown Phone Unavailable Care Team Providers Care Station Operator Name Role Phone Dena Muse Primary Care Physician [phone] Encounter [facility] [id number] Date(s): 03/10/16 - 03/10/16 [facility] [address] [place], [place] [address] Discharge Diagnosis: Cough Discharge Disposition: 01-Home or Self Care Attending Physician: Neil Mehta MD Admitting Physician: Neil Mehta MD Referring Physician: Neil Mehta MD Vital Signs No [...] Daily, # 90 tabs, 1 Refill(s), Pharmacy: [facility], 1 tabs Oral Daily Start Date: 03/07/16 Status: Ordered fluticasone 50 mcg/inh nasal spray 2 sprays, Nasal, BID, # 16 g, 0 Refill(s), other reason (Rx) Start Date: 02/08/16 Status: Ordered furosemide 20 mg oral tablet 20 mg 1 tabs, Oral, Daily, # 30 tabs, 3 Refill(s), Pharmacy: [facility], 1 tabs Oral Daily Start Date: [...] pain, # 1 bottles, 11 Refill(s), Pharmacy: [facility], 1 tabs SubLingual q5min,PRN:as needed for chest pain Start Date: 02/08/16 Status: Ordered Plavix 75 mg oral tablet 75 mg 1 tabs, Oral, Daily, # 30 tabs, 0 Refill(s) Start Date: 02/08/16 Status: Ordered ProAir HFA 90 mcg/inh inhalation aerosol See Instructions, 2 puffs Inhalation q4hr,Instr:FOR PRN USE PATIENT DUE FOR APPT WITH DR MUSE, # 1 Each, eRx: [facility], 2 puffs Inhalation [...] Daily, # 30 Each, 3 Refill(s), Pharmacy: [facility], 1 Each Inhalation Daily Start Date: 12/09/15 Status: Ordered Super B Complex 1 tabs, Oral, Daily, 0 Refill(s) Start Date: 04/28/14 Status: Ordered Trusopt 2% ophthalmic solution See Instructions, INSTILL 1 DROP INTO THE RIGHT EYE THREE TIMES A DAY, # 10 unknown unit, 11 Refill(s), eRx: [facility] #[id number], INSTILL 1 DROP INTO THE RIGHT EYE THREE TIMES A DAY Start Date: 09/23/14 Status: Ordered Zoloft 100 mg oral tablet 100 mg 1 tabs, Oral, Daily, # 90 tabs, 1 Refill(s), Pharmacy: [facility], 1 tabs Oral Daily Start Date: 12/16/15 Status: Ordered ZyrTEC Daily, 0 Refill(s) Start Date: 06/18/15 Status: Ordered Results No data available for this section Immunizations Vaccine Date Refusal Reason tetanus/diphth/pertuss (Tdap) adult/adol 12/31/13 influenza virus vaccine, inactivated1 09/25/14 influenza virus vaccine, live 11/19/12 pneumococcal 23-polyvalent vaccine 10/4/10 pneumococcal 23-polyvalent vaccine 09/05/05 pneumococcal 23-polyvalent vaccine [...]
--- OUTSIDE RECORDS SUMMARY | 2017-02-06 06:52 | XMS REPORT | Referral Summary ---
Author Author [facility] Organization [facility] Address Unknown Phone Unavailable Care Team Providers Care Real Estate Services Coordinator Name Role Phone Dena Muse Primary Care Physician [phone] Encounter [facility] Date(s): 09/29/15 - 09/29/15 [facility] [address] [place] [address] Discharge Disposition: 01-Home or Self Care Attending Physician: Aidan Camejo APRN Admitting Physician: Aidan Camejo APRN Vital Signs Most recent to 1 oldest [Reference Range]: Temperature Tympanic 36.5 degC [36.6-38.1 degC] *LOW* (09/29/15 11:22 AM) Peripheral Pulse 78 bpm Rate [60-100 bpm] (09/29/15 11:22 AM) Respiratory Rate 18 br/min [14-20 br/min] (09/29/15 11:22 AM) Blood Pressure 118/76 mmHg [90-140/60-90 mmHg] (09/29/15 11:22 AM) SpO2 94 % (09/29/15 11:22 AM) Problem List Condition Effective Dates Status [...] Daily, # 30 tabs, 2 Refill(s), Pharmacy: [facility] # [id number], 1 tabs Oral Daily Start Date: 07/23/15 Status: Ordered carvedilol 25 mg oral tablet 25 mg 1 tabs, Oral, TID, # 60 tabs, 5 Refill(s), Pharmacy: [facility] # [id number], 1 tabs Oral TID Start Date: 08/12/15 Status: Ordered Centrum Silver oral tablet 1 tabs, Oral, Daily, # 30 tabs, 0 Refill(s) Start Date: 04/28/14 Status: Ordered Coreg 25 mg oral tablet See Instructions, TAKE ONE TABLET BY MOUTH TWICE A DAY, # 180 tabs, eRx: [facility] #[id number], TAKE ONE TABLET BY MOUTH TWICE A DAY Start Date: 06/29/15 Status: Ordered Cozaar 100 mg oral tablet See Instructions, TAKE ONE TABLET BY MOUTH DAILY, # 90 tabs, 1 Refill(s), Pharmacy: [id number], TAKE ONE TABLET BY MOUTH DAILY Start Date: 09/07/15 Status: Ordered Dulera 200 mcg-5 mcg/inh inhalation aerosol See Instructions, INHALE TWO PUFFS INTO LUNGS TWICE A DAY, # 13 unknown unit, 4 Refill(s), eRx: [facility] #[id number], INHALE TWO PUFFS INTO LUNGS TWICE A DAY Start Date: 08/31/15 Status: Ordered Ecotrin 325 mg oral delayed release tablet 1 tabs, Oral, Daily, 0 Refill(s) Start Date: 04/28/14 Status: Ordered furosemide 20 mg oral tablet See Instructions, TAKE ONE TABLET BY MOUTH DAILY, # 30 tabs, 4 Refill(s), eRx: [facility] #[id number], TAKE ONE TABLET BY MOUTH DAILY Start Date: 07/09/15 Status: Ordered Imdur 30 mg oral tablet, extended release 30 mg 1 tabs, Oral, qAM, # 90 tabs, 1 Refill(s), Pharmacy: [facility] [id number], 1 tabs Oral qAM Start Date: 09/17/15 Stop Date: 11/16/15 Status: Ordered Levaquin 500 mg oral tablet 500 mg 1 tabs, Oral, q24hr, X 7 days, 0 Refill(s) Start Date: 09/28/15 Stop Date: 10/04/15 Status: Ordered NexIUM 40 mg oral delayed release capsule 40 mg 1 caps, Oral, Daily, APPROVED THRU 04/23/2016 APPROVAL# [id number], # 90 caps , 4 Refill(s), Pharmacy: [facility] #[id number], 1 caps Oral Daily,Instr: APPROVED THRU 04/23/2016 APPROVAL# [id number] Start Date: 04/30/15 Status: Ordered Nitrostat 0.4 mg sublingual tablet 1 tabs, SubLingual, q5min, as needed for chest pain, # 100 tabs, 0 Refill(s) Start Date: 04/28/14 Status: Ordered predniSONE 20 mg oral tablet 60 mg 3 tabs, Oral, Daily, X 5 days, 0 Refill(s) Start Date: 09/28/15 Stop Date: 10/02/15 Status: Ordered ProAir HFA 90 mcg/inh inhalation aerosol See Instructions, INHALE TWO PUFFS INTO LUNGS EVERY 4 HOURS NEEDED., # 1 Each , 6 Refill(s), Pharmacy: [facility] #[id number] Start Date: 03/06/15 Status: Ordered simvastatin 20 mg oral tablet See Instructions, TAKE ONE TABLET BY MOUTH EVERY NIGHT AT BEDTIME, # 30 tabs, 8 Refill(s), eRx: [facility] #[id number], TAKE ONE TABLET BY MOUTH EVERY NIGHT AT BEDTIME Start Date: 03/24/15 Status: Ordered Singulair 10 mg oral tablet See Instructions, TAKE ONE TABLET BY MOUTH ONCE A DAY, # 90 tabs, 1 Refill(s), eRx: [facility] #[id number], TAKE ONE TABLET BY MOUTH ONCE A DAY Start Date: 06/17/15 Status: Ordered Spiriva 18 mcg inhalation capsule See Instructions, INHALE THE CONTENTS OF ONE CAPSULE INTO LUNGS ONCE DAILY, USE 2 INHALATIONS FOR EACH DOSE, # 30 caps, 6 Refill(s), Pharmacy: [facility], INHALE THE CONTENTS OF ONE CAPSULE INTO LUNGS ONCE DAILY, USE 2 INHALATIONS FOR EACH... Start Date: 09/07/15 Status: Ordered Super B Complex 1 tabs, Oral, Daily, 0 Refill(s) Start Date: 04/28/14 Status: Ordered Trusopt 2% ophthalmic solution See Instructions, INSTILL 1 DROP INTO THE RIGHT EYE THREE TIMES A DAY, # 10 unknown unit, 11 Refill(s), eRx: [facility] #[id number], INSTILL 1 DROP INTO THE RIGHT EYE THREE TIMES A DAY Start Date: 09/23/14 Status: Ordered Zoloft 100 mg oral tablet 100 mg 1 tabs, Oral, Daily, # 90 tabs, 1 Refill(s), Pharmacy: [facility], 1 tabs Oral Daily Start Date: 09/07/15 [...]
--- OUTSIDE RECORDS SUMMARY | 2017-02-06 06:53 | XMS REPORT | Referral Summary ---
Author Author [facility] Organization [facility] Address Unknown Phone Unavailable Care Team Providers Care Spray Crew Name Role Phone Dena Muse Primary Care Physician [phone] Encounter [facility] [id number] Date(s): 06/18/15 - 06/18/15 [facility] [address] [place], [place] [address] Discharge Diagnosis: Glaucoma, pigmentary Discharge [...] Daily, # 30 tabs, 2 Refill(s), Pharmacy: [facility] # [id number], 1 tabs Oral Daily Start Date: 07/23/15 Status: Ordered carvedilol 25 mg oral tablet 25 mg 1 tabs, Oral, TID, # 60 tabs, 5 Refill(s), Pharmacy: [facility] # [id number], 1 tabs Oral TID Start Date: 08/12/15 Status: Ordered Centrum Silver oral tablet 1 tabs, Oral, Daily, # 30 tabs, 0 Refill(s) Start Date: 04/28/14 Status: Ordered Coreg 25 mg oral tablet See Instructions, TAKE ONE TABLET BY MOUTH TWICE A DAY, # 180 tabs, eRx: [facility] #[id number], TAKE ONE TABLET BY MOUTH TWICE A DAY Start Date: 06/29/15 Status: Ordered Cozaar 100 mg oral tablet See Instructions, TAKE ONE TABLET BY MOUTH DAILY, # 90 tabs, 1 Refill(s), Pharmacy: [facility] [facility] [id number], TAKE ONE TABLET BY MOUTH DAILY Start Date: 09/07/15 Status: Ordered Dulera 200 mcg-5 mcg/inh inhalation aerosol See Instructions, INHALE TWO PUFFS INTO LUNGS TWICE A DAY, # 13 unknown unit, 4 Refill(s), eRx: [facility] #[id number], INHALE TWO PUFFS INTO LUNGS TWICE A DAY Start Date: 08/31/15 Status: Ordered Ecotrin 325 mg oral delayed release tablet 1 tabs, Oral, Daily, 0 Refill(s) Start Date: 04/28/14 Status: Ordered furosemide 20 mg oral tablet See Instructions, TAKE ONE TABLET BY MOUTH DAILY, # 30 tabs, 4 Refill(s), eRx: [facility] #[id number], TAKE ONE TABLET BY MOUTH DAILY Start Date: 07/09/15 Status: Ordered Imdur 30 mg oral tablet, extended release 30 mg 1 tabs, Oral, qAM, # 90 tabs, 1 Refill(s), Pharmacy: [facility] [id number], 1 tabs Oral qAM Start Date: 09/17/15 Stop Date: 11/16/15 Status: Ordered NexIUM 40 mg oral delayed release capsule 40 mg 1 caps, Oral, Daily, APPROVED THRU 04/23/2016 APPROVAL# [id number], # 90 caps , 4 Refill(s), Pharmacy: [facility] #[id number], 1 caps Oral Daily,Instr: APPROVED THRU 04/23/2016 APPROVAL# [id number] Start Date: 04/30/15 Status: Ordered Nitrostat 0.4 mg sublingual tablet 1 tabs, SubLingual, q5min, as needed for chest pain, # 100 tabs, 0 Refill(s) Start Date: 04/28/14 Status: Ordered ProAir HFA 90 mcg/inh inhalation aerosol See Instructions, INHALE TWO PUFFS INTO LUNGS EVERY 4 HOURS NEEDED., # 1 Each , 6 Refill(s), Pharmacy: [facility] #[id number] Start Date: 03/06/15 Status: Ordered simvastatin 20 mg oral tablet See Instructions, TAKE ONE TABLET BY MOUTH EVERY NIGHT AT BEDTIME, # 30 tabs, 8 Refill(s), eRx: [facility] #[id number], TAKE ONE TABLET BY MOUTH EVERY NIGHT AT BEDTIME Start Date: 03/24/15 Status: Ordered Singulair 10 mg oral tablet See Instructions, TAKE ONE TABLET BY MOUTH ONCE A DAY, # 90 tabs, 1 Refill(s), eRx: [facility] #[id number], TAKE ONE TABLET BY MOUTH ONCE A DAY Start Date: 06/17/15 Status: Ordered Spiriva 18 mcg inhalation capsule See Instructions, INHALE THE CONTENTS OF ONE CAPSULE INTO LUNGS ONCE DAILY, USE 2 INHALATIONS FOR EACH DOSE, # 30 caps, 6 Refill(s), Pharmacy: [facility] [id number], INHALE THE CONTENTS OF ONE CAPSULE INTO LUNGS ONCE DAILY, USE 2 INHALATIONS FOR EACH... Start Date: 09/07/15 Status: Ordered Super B Complex 1 tabs, Oral, Daily, 0 Refill(s) Start Date: 04/28/14 Status: Ordered Trusopt 2% ophthalmic solution See Instructions, INSTILL 1 DROP INTO THE RIGHT EYE THREE TIMES A DAY, # 10 unknown unit, 11 Refill(s), eRx: [facility] #[id number], INSTILL 1 DROP INTO THE RIGHT EYE THREE TIMES A DAY Start Date: 09/23/14 Status: Ordered Zoloft 100 mg oral tablet 100 mg 1 tabs, Oral, Daily, # 90 tabs, 1 Refill(s), Pharmacy: [facility] [id number], 1 tabs Oral Daily Start [...] 01/21/2013 Document Reviewed: ExitCare Patient Information 2015 [employer]. This information is not intended to replace advice given to you by your health care provider. Make sure you discuss any questions you have with your health care provider. No follow up information was provided. Referrals to Other Providers Referred by: Rosana Arauz MD
--- OUTSIDE RECORDS SUMMARY | 2017-02-06 06:53 | XMS REPORT | Referral Summary ---
Author Organization Unknown Address Unknown Phone Unavailable Care Team Providers Care Pier Master Assistant Name Role Phone Dena Muse Primary Care Physician [phone] Encounter [facility] [id number] Date(s): 11/25/14 - 11/25/14 [facility] [place] [address] [place] [address] [place] [address] Discharge Diagnosis: Hypertension Discharge Diagnosis: Sinusitis Discharge Diagnosis: Dyslipidemia Discharge Diagnosis: Chest pain Discharge Diagnosis: CAD in [place] artery Discharge Disposition: Home or Self Care Attending Physician: Harshil Lopez MD Admitting Physician: Harshil Lopez MD Referring Physician: Moose Muse MD Vital Signs Most recent to 1 oldest [Reference Range]: Peripheral Pulse 68 bpm Rate [60-100 bpm] (11/25/14 8:58 AM) Blood Pressure 112/72 mmHg [90-140/60-90 mmHg] (11/25/14 8:58 AM) Problem List Condition Effective Dates Status [...] Daily, # 30 tabs, 6 Refill(s), Pharmacy: [facility] #[id number] , 1 tabs Oral Daily Start Date: 06/27/14 Status: Ordered amoxicillin 875 mg oral tablet 1 tabs, Oral, BID, X 14 days, # 28 tabs, 0 Refill(s), Pharmacy: [facility] #[id number], 1 tabs Oral BID,x14 days Start Date: 11/25/14 Stop Date: 12/09/14 Status: Ordered Centrum Silver oral tablet 1 tabs, Oral, Daily, # 30 tabs, 0 Refill(s) Start Date: 04/28/14 Status: Ordered Claritin 1 tabs, Oral, Daily, 0 Refill(s) Start Date: 04/28/14 Status: Ordered Coreg 25 mg oral tablet See Instructions, TAKE ONE TABLET BY MOUTH TWICE A DAY, # 180 tabs, 2 Refill(s) , eRx: [facility] #[id number], TAKE ONE TABLET BY MOUTH TWICE A DAY Special Instructions: TAKE ONE TABLET BY MOUTH TWICE A DAY Start Date: 09/11/14 Status: Ordered Cozaar 100 mg oral tablet See Instructions, TAKE ONE TABLET BY MOUTH EVERY DAY, # 90 tabs, eRx: [facility] #[id number], TAKE ONE TABLET BY MOUTH EVERY DAY Special Instructions: TAKE ONE TABLET BY MOUTH EVERY DAY Start Date: 09/11/14 Status: Ordered Dulera 200 mcg-5 mcg/inh inhalation aerosol 2 puffs, Inhalation, BID, # 13 g, 3 Refill(s), Pharmacy: [facility] # [id number] Start Date: 07/30/14 Status: Ordered Ecotrin 325 mg oral delayed release tablet 1 tabs, Oral, Daily, 0 Refill(s) Start Date: 04/28/14 Status: Ordered Flonase 50 mcg/inh nasal spray See Instructions, PLACE 1 SPRAY IN EACH NOSTRIL DAILY, # 16 unknown unit, 2 Refill(s), eRx: [facility] #[id number], PLACE 1 SPRAY IN EACH NOSTRIL DAILY Special Instructions: PLACE 1 SPRAY IN EACH NOSTRIL DAILY Start Date: 11/12/14 Status: Ordered furosemide 20 mg oral tablet See Instructions, TAKE ONE TABLET BY MOUTH DAILY, # 30 tabs, 2 Refill(s), eRx: [facility] #[id number], TAKE ONE TABLET BY MOUTH DAILY Special Instructions: TAKE ONE TABLET BY MOUTH DAILY Start Date: 10/06/14 Status: Ordered Imdur 30 mg oral tablet, extended release 1 tabs, Oral, qAM, # 30 tabs, 5 Refill(s), Pharmacy: [facility] #[id number], 1 tabs Oral qAM Start Date: 06/26/14 Status: Ordered NexIUM 40 mg oral delayed release capsule See Instructions, TAKE ONE CAPSULE BY MOUTH EVERY DAY, # 30 caps, 4 Refill(s), eRx: [facility] #[id number], TAKE ONE CAPSULE BY MOUTH EVERY DAY Special Instructions: TAKE ONE CAPSULE BY MOUTH EVERY DAY Start Date: 10/21/14 Status: Ordered Nitrostat 0.4 mg sublingual tablet 1 tabs, SubLingual, q5min, as needed for chest pain, # 100 tabs, 0 Refill(s) Start Date: 04/28/14 Status: Ordered ProAir HFA 90 mcg/inh inhalation aerosol See Instructions, INHALE TWO PUFFS INTO LUNGS EVERY 4 HOURS NEEDED., # 8.5 unknown unit, 1 Refill(s), eRx: [facility] #[id number], INHALE TWO PUFFS INTO LUNGS EVERY 4 HOURS NEEDED. Special Instructions: INHALE TWO PUFFS INTO LUNGS EVERY 4 HOURS NEEDED. Start Date: 11/21/14 Status: Ordered simvastatin 20 mg oral tablet 1 tabs, Oral, Bedtime (once a day), # 30 tabs, 6 Refill(s), Pharmacy: [facility] #[id number], 1 tabs Oral Bedtime (once a day) Start Date: 08/25/14 Status: Ordered Singulair 10 mg oral tablet See Instructions, TAKE ONE TABLET BY MOUTH ONCE A DAY, # 90 tabs, eRx: [facility] #[id number], TAKE ONE TABLET BY MOUTH ONCE A DAY Special Instructions: TAKE ONE TABLET BY MOUTH ONCE A DAY Start Date: 09/19/14 Status: Ordered Spiriva 18 mcg inhalation capsule See Instructions, INHALE THE CONTENTS OF ONE CAPSULE INTO LUNGS ONCE DAILY, USE 2 INHALATIONS FOR EACH DOSE, # 30 caps, 5 Refill(s), eRx: [facility] # [id number], INHALE THE CONTENTS OF ONE CAPSULE INTO [...] # 10 unknown unit, 11 Refill(s), eRx: [facility] #[id number], INSTILL 1 DROP INTO THE RIGHT EYE THREE TIMES A DAY Special Instructions: INSTILL 1 DROP INTO THE RIGHT EYE THREE TIMES A DAY Start Date: 09/23/14 Status: Ordered Zoloft 100 mg oral tablet See Instructions, TAKE ONE TABLET BY MOUTH EVERY DAY, # 45 tabs, 1 Refill(s), eRx: [facility] #[id number], TAKE ONE TABLET BY MOUTH EVERY DAY Special Instructions: TAKE ONE TABLET BY MOUTH EVERY DAY Start Date: 09/19/14 Status: Ordered Results No data available for [...] Extracted from: Title: Ambulatory Patient Education Author: Harshil Lopez MD Date: 11/25/14 Allergy Sinusitis Sinusitis is redness, soreness, and puffiness (inflammation ) of the air pockets in the bones of your face (sinuses ). The redness, soreness, and puffiness can cause air and mucus to get trapped in your sinuses. This can allow germs to grow and cause an infection. HOME CARE Drink enough fluids to keep your pee (urine ) clear or pale yellow. Use a humidifier in your home. Run a hot shower to create steam in the bathroom. Sit in the bathroom with the door closed. Breathe in the steam 34 times a day. Put a warm, moist washcloth on your face 34 times a day, or as told by your doctor. Use salt water sprays (saline sprays ) to wet the thick fluid in your nose. This can help the sinuses drain. Only take medicine as told by your doctor. GET HELP RIGHT AWAY IF: Your pain gets worse. You have very bad headaches. You are sick to your stomach (nauseous ). You throw up (vomit ). You are very sleepy (drowsy ) all the time. Your face is puffy (swollen ). Your vision changes. You have a stiff neck. You have trouble breathing. MAKE SURE YOU: Understand these instructions. Will watch your condition. Will get help right away if you are not doing well or get worse. Document Released: 04/17/2009 Document Revised: 07/24/2013 Document Reviewed: ExitCare Patient Information 2014 [employer]. No follow up information was provided. Extracted from: Title: Office Visit Note Author: Harshil Lopez MD Date: 11/25/14 Assessment/Plan 1. Coronary artery disease, small vessel disease overall. Medical therapy recommended. Continue aspirin.Watch for anginal sxs. 2. Chest pain, resolved, likely related to small vessel disease. Cont imdur. If sxs recur, patient to call. 3. Dyslipidemia, with LDL at 93. Continue simvastatin, but increase exercise and maintain low fat diet. Goal LDL less than 70. Due for chol check in December with annual physical. 4. History cardiomyopathy, improved on medical therapy. Nonischemic cardio myopathy overall. Continue carvedilol and losartan. Low-salt diet, watch for congestive heart failure symptoms. 5. Hypertension, currently controlled on current medical therapy. Low-salt diet encouraged. 6. Mild mitral regurgitation with mild to moderate aortic insufficiency, asymptomatic 7. Upper respiratory tract infection, persistent over 2 weeks now, likely sinusitis. Amoxicillin prescription has been sent off. Encourage patient to follow-up with Dr. Muse if symptoms do not improve. Continue over-the- counter medications for symptomatic relief. Referrals to Other Providers Referred by: Harshil Lopez MD
--- OUTSIDE RECORDS SUMMARY | 2017-02-06 06:53 | XMS REPORT | Referral Summary ---
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) Discharge Diagnosis: Glaucoma suspect Discharge Disposition: Home or Self Care Attending Physician: Rosana Arauz MD Admitting Physician: Rosana Arauz MD Referring Physician: Moose Muse MD Vital Signs No data available for [...] Pharmacy: [facility] #[id number] , 1 tabs Oral Daily Start Date: [...] eRx: [facility] #[id number], TAKE ONE TABLET BY MOUTH TWICE A DAY Special Instructions: TAKE ONE TABLET BY MOUTH TWICE A DAY Start Date: 09/11/14 Status: Ordered Cozaar 100 mg oral tablet See Instructions, TAKE ONE TABLET BY MOUTH DAILY, # 90 tabs, 1 Refill(s), eRx: [facility] #[id number], TAKE ONE TABLET BY MOUTH DAILY Special Instructions: TAKE ONE TABLET BY MOUTH DAILY Start Date: 12/08/14 Status: Ordered Dulera 200 mcg-5 mcg/inh inhalation aerosol 2 puffs, Inhalation, BID, # 13 g, 3 Refill(s), Pharmacy: [facility] # [id number] Start Date: 07/30/14 Status: Ordered Ecotrin 325 mg oral delayed release tablet 1 tabs, Oral, Daily, 0 Refill(s) Start Date: 04/28/14 Status: Ordered Flonase 50 mcg/inh nasal spray See Instructions, PLACE 1 SPRAY IN EACH NOSTRIL DAILY, # 16 unknown unit, 2 Refill(s), eRx: [facility] #[id number], PLACE 1 SPRAY IN EACH NOSTRIL DAILY Special Instructions: PLACE 1 SPRAY IN EACH NOSTRIL DAILY Start Date: 11/12/14 Status: Ordered fluorometholone acetate 0.1% ophthalmic suspension See Instructions, After procedure use 1 drop QID in surgical eye for 1 week then discontinue., # 5 mL, 1 Refill(s), Pharmacy: [facility] #[id number] Special Instructions: After procedure use 1 drop QID in surgical eye for 1 week then discontinue. Start Date: 12/15/14 Stop Date: 01/02/15 Status: Ordered furosemide 20 mg oral tablet See Instructions, TAKE ONE TABLET BY MOUTH DAILY, # 30 tabs, 2 Refill(s), eRx: [facility] #[id number], TAKE ONE TABLET BY MOUTH DAILY Special Instructions: TAKE ONE TABLET BY MOUTH DAILY Start Date: 10/06/14 Status: Ordered Imdur 30 mg oral tablet, extended release 1 tabs, Oral, qAM, # 30 tabs, 5 Refill(s), Pharmacy: [facility] #[id number], 1 tabs Oral qAM Start Date: 06/26/14 Status: Ordered NexIUM 40 mg oral delayed release capsule See Instructions, TAKE ONE CAPSULE BY MOUTH EVERY DAY, # 30 caps, 4 Refill(s), eRx: [facility] #[id number], TAKE ONE CAPSULE BY MOUTH EVERY DAY [...] eRx: [facility] #[id number], INHALE TWO PUFFS INTO LUNGS EVERY 4 HOURS NEEDED. Special Instructions: INHALE TWO PUFFS INTO LUNGS EVERY 4 HOURS NEEDED. Start Date: 11/21/14 Status: Ordered simvastatin 20 mg oral tablet 1 tabs, Oral, Bedtime (once a day), # 30 tabs, 6 Refill(s), Pharmacy: [facility] #[id number], 1 tabs Oral Bedtime (once a day) Start Date: 08/25/14 Status: Ordered Singulair 10 mg oral tablet See Instructions, TAKE ONE TABLET BY MOUTH ONCE A DAY, # 90 tabs, eRx: [facility] #[id number], TAKE ONE TABLET BY MOUTH ONCE A DAY Special Instructions: TAKE ONE TABLET BY MOUTH ONCE A DAY Start Date: 09/19/14 Status: Ordered Spiriva 18 mcg inhalation capsule See Instructions, INHALE THE CONTENTS OF ONE CAPSULE INTO LUNGS ONCE DAILY, USE 2 INHALATIONS FOR EACH DOSE, # 30 caps, 5 Refill(s), eRx: [facility] # [id number], INHALE THE CONTENTS OF ONE CAPSULE INTO [...] eRx: [facility] #[id number], INSTILL 1 DROP INTO THE RIGHT EYE THREE TIMES A DAY Special Instructions: INSTILL 1 DROP INTO THE RIGHT EYE THREE TIMES A DAY Start Date: 09/23/14 Status: Ordered Zoloft 100 mg oral tablet See Instructions, TAKE ONE TABLET BY MOUTH EVERY DAY, # 45 tabs, 1 Refill(s), eRx: [facility] #[id number], TAKE ONE TABLET BY MOUTH EVERY DAY [...] Patient Education Author: Rosana Arauz MD Date: 12/15/14 Ophthalmology Glaucoma Glaucoma is a condition of [...] When they are over-inflated with air, the winch driver is not aware that there is [...] only during an eye exam by an administrative support specialist. It is important to have your eyes looked at by a specialist at least once a year after the age of 40. If the pressure in the eye is high, it does not necessarily mean that there is glaucoma. In such cases, an asbestos worker helper may choose to follow the eye pressures [...] made by an eye exam by an asbestos worker helper. He or she will measure the pressure [...] 04/30/2013 Document Reviewed: ExitCare Patient Information 2014 [employer]. No follow up information was provided. Referrals to Other Providers Referred by: Rosana Arauz MD Referred by: Rosana Arauz MD
--- OUTSIDE RECORDS SUMMARY | 2017-02-06 06:53 | XMS REPORT | Referral Summary ---
Author Author [facility] Organization [facility] Address Unknown Phone Unavailable Care Team Providers Care Consumer Insights Intern Name Role Phone Dena Muse Primary Care Physician [phone] Encounter [facility] [id number] Date(s): 06/18/15 - 06/18/15 [facility] [address] [place], [place] [address] Discharge Diagnosis: Glaucoma, pigmentary Discharge Diagnosis: [...] Daily, # 30 tabs, 2 Refill(s), Pharmacy: [facility] # [id number], 1 tabs Oral Daily Start Date: 07/23/15 Status: Ordered carvedilol 25 mg oral tablet 25 mg 1 tabs, Oral, TID, # 60 tabs, 5 Refill(s), Pharmacy: [facility] # [id number], 1 tabs Oral TID Start Date: 08/12/15 Status: Ordered Centrum Silver oral tablet 1 tabs, Oral, Daily, # 30 tabs, 0 Refill(s) Start Date: 04/28/14 Status: Ordered Coreg 25 mg oral tablet See Instructions, TAKE ONE TABLET BY MOUTH TWICE A DAY, # 180 tabs, eRx: [facility] #[id number], TAKE ONE TABLET BY MOUTH TWICE A DAY Start Date: 06/29/15 Status: Ordered Cozaar 100 mg oral tablet See Instructions, TAKE ONE TABLET BY MOUTH DAILY, # 90 tabs, 1 Refill(s), Pharmacy: [place] [id number], TAKE ONE TABLET BY MOUTH DAILY Start Date: 09/07/15 Status: Ordered Dulera 200 mcg-5 mcg/inh inhalation aerosol See Instructions, INHALE TWO PUFFS INTO LUNGS TWICE A DAY, # 13 unknown unit, 4 Refill(s), eRx: [facility] #[id number], INHALE TWO PUFFS INTO LUNGS TWICE A DAY Start Date: 08/31/15 Status: Ordered Ecotrin 325 mg oral delayed release tablet 1 tabs, Oral, Daily, 0 Refill(s) Start Date: 04/28/14 Status: Ordered furosemide 20 mg oral tablet See Instructions, TAKE ONE TABLET BY MOUTH DAILY, # 30 tabs, 4 Refill(s), eRx: [facility] #[id number], TAKE ONE TABLET BY MOUTH DAILY Start Date: 07/09/15 Status: Ordered Imdur 30 mg oral tablet, extended release 30 mg 1 tabs, Oral, qAM, # 90 tabs, 1 Refill(s), Pharmacy: [id number], 1 tabs Oral qAM Start Date: 09/17/15 Stop Date: 11/16/15 Status: Ordered NexIUM 40 mg oral delayed release capsule 40 mg 1 caps, Oral, Daily, APPROVED THRU 04/23/2016 APPROVAL# [id number], # 90 caps , 4 Refill(s), Pharmacy: [facility] #[id number], 1 caps Oral Daily,Instr: APPROVED THRU 04/23/2016 APPROVAL# [id number] Start Date: 04/30/15 Status: Ordered Nitrostat 0.4 mg sublingual tablet 1 tabs, SubLingual, q5min, as needed for chest pain, # 100 tabs, 0 Refill(s) Start Date: 04/28/14 Status: Ordered ProAir HFA 90 mcg/inh inhalation aerosol See Instructions, INHALE TWO PUFFS INTO LUNGS EVERY 4 HOURS NEEDED., # 1 Each , 6 Refill(s), Pharmacy: [facility] #[id number] Start Date: 03/06/15 Status: Ordered simvastatin 20 mg oral tablet See Instructions, TAKE ONE TABLET BY MOUTH EVERY NIGHT AT BEDTIME, # 30 tabs, 8 Refill(s), eRx: [facility] #[id number], TAKE ONE TABLET BY MOUTH EVERY NIGHT AT BEDTIME Start Date: 03/24/15 Status: Ordered Singulair 10 mg oral tablet See Instructions, TAKE ONE TABLET BY MOUTH ONCE A DAY, # 90 tabs, 1 Refill(s), eRx: [facility] #[id number], TAKE ONE TABLET BY MOUTH ONCE A [...] 11 Refill(s), eRx: [facility] #[id number], INSTILL 1 DROP INTO THE RIGHT EYE [...] 01/21/2013 Document Reviewed: ExitCare Patient Information 2015 [employer]. This information is not intended to replace advice given to you by your health care provider. Make sure you discuss any questions you have with your health care provider. No follow up information was provided. Referrals to Other Providers Referred by: Rosana Arauz MD
--- OUTSIDE RECORDS SUMMARY | 2017-02-06 06:53 | XMS REPORT | Referral Summary ---
Author Author [facility] Organization [facility] Address Unknown Phone Unavailable Care Team Providers Care Telesales Supervisor Name Role Phone Dena Muse Primary Care Physician [phone] Encounter [facility] [id number] Date(s): 06/18/15 - 06/18/15 [facility] [address] [place], [place] [address] Discharge Diagnosis: Glaucoma, pigmentary Discharge Diagnosis: Cortical [...] Daily, # 90 tabs, 1 Refill(s), Pharmacy: [id number], 1 tabs Oral Daily Start Date: 12/16/15 Status: Ordered carvedilol 25 mg oral tablet 25 mg 1 tabs, Oral, TID, # 90 tabs, 4 Refill(s), Pharmacy: [facility], 1 tabs Oral TID Start Date: 12/09/15 Status: Ordered Centrum Silver oral tablet 1 tabs, Oral, Daily, # 30 tabs, 0 Refill(s) Start Date: 04/28/14 Status: Ordered Coreg 25 mg oral tablet See Instructions, TAKE ONE TABLET BY MOUTH TWICE A DAY, # 180 tabs, eRx: [facility] #[id number], TAKE ONE TABLET BY MOUTH TWICE A DAY Start Date: 06/29/15 Status: Ordered Cozaar 100 mg oral tablet 100 mg 1 tabs, Oral, Daily, # 90 tabs, 1 Refill(s), Pharmacy: [facility] , 1 tabs Oral Daily Start Date: 12/04/15 Status: Ordered Dulera 200 mcg-5 mcg/inh inhalation aerosol See Instructions, INHALE TWO PUFFS INTO LUNGS TWICE A DAY, # 13 unknown unit, 4 Refill(s), eRx: [facility] #[id number], INHALE TWO PUFFS INTO LUNGS TWICE A DAY Start Date: 08/31/15 Status: Ordered Ecotrin 325 mg oral delayed release tablet 1 tabs, Oral, Daily, 0 Refill(s) Start Date: 04/28/14 Status: Ordered furosemide 20 mg oral tablet 20 mg 1 tabs, Oral, Daily, # 30 tabs, 3 Refill(s), Pharmacy: [facility], 1 tabs Oral Daily Start Date: 12/09/15 Status: Ordered Imdur 30 mg oral tablet, extended release 30 mg 1 tabs, Oral, qAM, # 90 tabs, 1 Refill(s), Pharmacy: [facility], 1 tabs Oral qAM Start Date: 12/16/15 Status: Ordered NexIUM 40 mg oral delayed release capsule 40 mg 1 caps, Oral, Daily, APPROVED THRU 04/23/2016 APPROVAL# [id number], # 90 caps , 4 Refill(s), Pharmacy: [facility] #[id number], 1 caps Oral Daily,Instr: APPROVED THRU 04/23/2016 APPROVAL# [id number] Start Date: 04/30/15 Status: Ordered Nitrostat 0.4 mg sublingual tablet 1 tabs, SubLingual, q5min, as needed for chest pain, # 100 tabs, 0 Refill(s) Start Date: 04/28/14 Status: Ordered ProAir HFA 90 mcg/inh inhalation aerosol See Instructions, INHALE TWO PUFFS INTO LUNGS EVERY 4 HOURS NEEDED., # 1 Each , 6 Refill(s), Pharmacy: [facility] #[id number] Start Date: 03/06/15 Status: Ordered Spiriva 18 mcg inhalation capsule 18 mcg 1 Each, Inhalation, Daily, # 30 Each, 3 Refill(s), Pharmacy: [facility], 1 Each Inhalation Daily Start Date: 12/09/15 Status: Ordered Super B Complex 1 tabs, Oral, Daily, 0 Refill(s) Start Date: 04/28/14 Status: Ordered Trusopt 2% ophthalmic solution See Instructions, INSTILL 1 DROP INTO THE RIGHT EYE THREE TIMES A DAY, # 10 unknown unit, 11 Refill(s), eRx: [facility] #[id number], INSTILL 1 DROP INTO THE RIGHT EYE THREE TIMES A DAY Start Date: 09/23/14 Status: Ordered Zoloft 100 mg oral tablet 100 mg 1 tabs, Oral, Daily, # 90 tabs, 1 Refill(s), Pharmacy: [id number], 1 tabs Oral Daily [...] 01/21/2013 Document Reviewed: ExitCare Patient Information 2015 [employer]. This information is not intended to replace advice given to you by your health care provider. Make sure you discuss any questions you have with your health care provider. No follow up information was provided. Referrals to Other Providers Referred by: Rosana Arauz MD
[2017-02-06 06:55] VITALS: BP 140/64; PULSE 69; RESP 18; TEMP 97.8; O2SAT 92
[2017-02-06] MEDS ORDERED: LIDOCAINE 1% (10mg/ml) 2ml SDV INJ ONE (07:00)
[2017-02-06] MEDS ORDERED: LR 1,000 ML IV SCH (07:00)
[2017-02-06 07:01] VITALS: Ht 171.4 cm; Wt 106.7 kg
[2017-02-06 07:16] VITALS: BP 140/64; PULSE 69; RESP 18; TEMP 97.8; O2SAT 92
[2017-02-06] MEDS ORDERED: DORZ10DR RIGHT EYE (07:16)
--- NOTE | 2017-02-06 09:13 | ANESPREOP ---
Anesthesia Record Date and Time DATE: 02/06/17 TIME: 09:12 Pre-Op Diagnosis crcs Proposed Surgical Procedure COLONOSCOPY Allergies: Coded Allergies: No Known Allergies (Unverified , 02/06/17) Ht/Wt/BMI Height: 5 ' 7.50 " Weight: 106.700 kg BMI: 36.3 kg/m2 Vital Signs Date Time Temp Pulse Resp B/P Pulse Ox O2 Delivery O2 Flow Rate FiO2 02/06/17 07:16 97.8 69 18 140/64 92 Room Air Medications Inpatient Medications Current Medications Medications (Trade) Dose Ordered Sig/Irene Start Time Stop Time Status Last Admin Dose Admin Lactated Ringer's (Lactated Ringers) 1,000 ml @ 50 mls/hr Q20H 02/06/17 07:00 02/06/17 07:20 50 MLS/HR Albuterol Sulfate (Proair Hfa) 8.5 Gm Aerosol, 8.5 GM IH PRN, (Reported) Last Taken: on 01/23/17 Amlodipine Besylate (Amlodipine Besylate) 10 Mg Tablet, 10 MG PO DAILY, (Reported) Last Taken: on 02/05/17 0800 Aspirin EC (Aspirin Ec) 325 Mg Tablet.dr, 325 MG PO DAILY, (Reported) Last Taken: on 01/27/17 Carvedilol (Coreg) 25 Mg Tablet, 25 MG PO BID, ( Reported) Last Taken: on 02/06/17 0600 Clopidogrel Bisulfate (Clopidogrel) 75 Mg Tablet, 1 TAB PO DAILY, (Reported) Last Taken: on 01/27/17 Dorzolamide HCl (Trusopt) 100 Drop/10 Ml Drops, 1 DROP RIGHT EYE TID, (Reported) Last Taken: on 02/06/17 0600 Esomeprazole Mag Trihydrate (Nexium) 40 Mg Capsule.dr, 40 MG PO DAILY, (Reported) Last Taken: on 02/04/17 0800 Furosemide (Furosemide) 20 Mg Tablet, 20 MG PO DAILY, (Reported) Last Taken: on 02/05/17 0800 Loratadine (Claritin) 10 Mg Tablet, 10 MG PO HS , (Reported) Last Taken: on 02/05/17 2100 Losartan Potassium (Cozaar) 50 Mg Tablet, 100 MG PO DAILY, (Reported) Last Taken: on 02/06/17 0600 Montelukast Sodium (Singulair) 10 Mg Tablet, 10 MG PO HS, (Reported) Last Taken: on 02/05/172099 Multivitamins W-Minerals/Lut (Centrum Silver Tablet) 1 Tab Tablet, 1 TAB PO DAILY, (Reported) Last Taken: on 01/27/17 Nitroglycerin (Nitroglycerin) 0.4 Mg Tab.subl, 0.4 MG SL PRN, (Reported) Last Taken: on 12/21/16 Sertraline Hcl (Zoloft) 50 Mg Tablet, 100 MG PO HS, (Reported) Last Taken: on 02/05/172099 Simvastatin (Simvastatin) 20 Mg Tablet, 20 MG PO HS, (Reported) Last Taken: on 02/06/17 0600 Vitamin B Complex (Super B Complex) 1 Cap Capsule, 1 CAP PO DAILY, (Reported) Last Taken: on 01/27/17 Currently on Beta Vanessa: Yes Beta Vanessa Last Taken: COREG 02/05/17 @ 2100 Medical/Surgical History Anesthesia PMH: Reports: *Angina (DEC 2016), *Dyspnea, *Hypertension, *AL ( 2015- STENT PLACED), Asthma, CHF, Glaucoma (R EYE), Hiatal Hernia, Obesity, Pneumonia (SEP 2016), Reflux, Denies: *Diabetes, Anesthesia Reactions (NO AIRWAY ISSUES), Arthritis, CVA/Stroke/TIA, Cancer, Clotting Problems, Malignant Hyperthermia, Renal Disease, Seizures, Sleep Apnea, Thyroid Disease Smoking Status: Never smoker Has pt. smoked today?: No Use Chewing Tobacco?: No Second Hand Exposure: No Substance Use Type: does not use Substance last used: unknown Alcohol Intake: none Last Drink: unknown Past Surgical History Orthopedic Surgeries: Yes - L FEMUR PINNING,L RTCR Abdominal Surgeries: Genitourinary Surgeries: Cardiac Surgeries: Yes - HEART CATH WITH STENT Endocrine Surgeries: Reproductive Surgeries: Neurological Surgeries: Ear Surgeries: Nose Surgeries: Throat Surgeries: Other Surgeries: Anesthesia Adverse Reactions: FOUND none Family Hx of Anesthesia Advers: none Hx of Motion Sickness: Yes Pertinent Findings EKG Rhythm: Sinus Rhythm Physical Exam Respiratory: Bilat breath sounds equal, Lungs clear Cardiovascular: FOUND Regular rate, rhythm, FOUND No murmur Airway Assessment Mallampati Score: II TMD: 2 Fingerbreadths Neck Extension: Fair Overall Assessment: May Be Diff Mask Vent., May Be Diff Intubation ASA: 3 Plan Anesthesia Plan: TIVA Discussion Discussed risks/options/alternatives of anesthesia and questions answered. Patient consents. Nursing pain assessment noted. Present: Spouse Attestation Statement Prior to the delivery of any anesthetic medication, I examined the patient, developed the plan, obtained the patient's consent and discussed the risk and benefits of the procedure with the patient/guardian. CECILE ZAMORANO CRNA Feb 06, 2017 09:13
[2017-02-06] MEDS ORDERED: PROPOFOL 500mg 50 ML IV ONE (09:18)
[2017-02-06] MEDS ORDERED: LIDOCAINE 1% (10mg/ml) 2ml SDV ONE (09:18)
[2017-02-06 09:38] VITALS: BP 89/50; PULSE 66; RESP 12; TEMP 97.7; O2SAT 92
[2017-02-06 09:43] VITALS: BP 96/54; PULSE 71; RESP 19; O2SAT 92
[2017-02-06 09:53] VITALS: BP 117/60; PULSE 68; RESP 20; O2SAT 95
[2017-02-06 10:03] VITALS: BP 116/70; PULSE 70; RESP 22; O2SAT 94
--- NOTE | 2017-02-06 10:24 | ANESPO ---
Post-Op Note Date 02/06/17 Time: 10:23 Status Pt Participated in Evaluation: Pt participated in person Vital Signs Date Time Temp Pulse Resp B/P Pulse Ox O2 Delivery O2 Flow Rate FiO2 02/06/17 10:03 70 22 116/70 94 Room Air 02/06/17 09:38 97.7 Respiratory Function: Airway patent, Regular respirations Cardiovascular Function: Regular pulse Mental Status: Alert/oriented Pain Level Intensity: 0 (0) Unable to Assess Pain Due To: Medicated/Sleeping Hydration: Taking po fluids Complications during Recovery None apparent Post-Anesthesia Notes pt. micheal. well Follow-Up Instructions Instructions Per Surgeon Additional Information none CECILE ZAMORANO CRNA Feb 06, 2017 10:24
--- NOTE | 2017-02-06 14:41 | OPNOTEF ---
DATE OF SERVICE 02/06/2017 SURGEON Aditya Chaney MD PREOPERATIVE DIAGNOSIS Colorectal cancer surveillance. POSTOPERATIVE DIAGNOSIS Colorectal cancer surveillance, colonic polyps located at 45 cm and 70 cm from the anal verge. PROCEDURE Colonoscopy with polypectomies via cold biopsy technique. ANESTHESIA TIVA BRIEF HISTORY/INDICATIONS Mr. Fuentes is a 61-year-old gentleman who presents today to [facility] to undergo a colonoscopy to serve as a portion of his overall colorectal cancer surveillance. For completeness please refer to notes included in the patient's chart. It has been more than 10 years since his last endoscopic evaluation. FINDINGS Upon colonoscopy the patient was found to have two polyps that were both on the order of 5-6 mm in diameter and were removed in their entirety via cold biopsy technique. These were located at 45 cm and 70 cm from the anal verge. There was no evidence for angiodysplastic lesions, diverticula or lesvia malignancies. DESCRIPTION OF PROCEDURE After informed was obtained, the patient was brought to the endoscopy suite and placed on the table in a left lateral decubitus position. The patient subsequently underwent total intravenous anesthesia by the nurse sales representative per my request. Formal time-out was then completed. Next, a digital rectal examination was performed. Normal sphincter tone. No rectal masses were appreciated. An Olympus colonoscope was inserted in the anus and advanced under direct visualization of the lumen at all times until a polyp at 70 cm from the anal verge was identified. This polyp was on the order of 6 mm in diameter and removed in its entirety via cold biopsy technique and submitted for pathologic evaluation. Scope was then continued be advanced until the cecum was ascertained. Triangulation of taenia coli, ileocecal valve and appendiceal lumen were all visualized. Scope was then slowly withdrawn, again maintaining visualization of the lumen at all times. As the scope was being slowly withdrawn, an additional/synchronous polyp was identified at 45 cm from the anal verge that was more diminutive, on the order of about 4-5 mm in diameter. This polyp was also grasped and removed in its entirety via cold biopsy technique and submitted for pathologic evaluation. Scope was then continued to be withdrawn till it was brought forth back to rectal vault. A J-maneuver was then performed. The patient was found have some prominent internal hemorrhoids but no worrisome perianal pathology was noted. Scope was allowed to straighten and then withdrawn through the anal verge. The patient tolerated the procedure without difficulty and was sent back to the preop area in stable condition. Will await the biopsy results from today's polypectomies and proceed accordingly with further recommendations thereafter. LAUREN
== END 2017-02-06 10:18 | disposition home or self-care (01) ==
LOC: NSC 06:45
PROVIDERS: ATTEND Surgery
DX: Z12.11 Encounter for screening for malignant neoplasm of colon (principal); D12.6 Benign neoplasm of colon, unspecified; I25.119 Atherosclerotic heart disease of native coronary artery with unspecified angina pectoris; I10 Essential (primary) hypertension; K21.9 Gastro-esophageal reflux disease without esophagitis; J45.909 Unspecified asthma, uncomplicated; I50.9 Heart failure, unspecified; E78.00 Pure hypercholesterolemia, unspecified; Z86.14 Personal history of Methicillin resistant Staphylococcus aureus infection; Z79.82 Long term (current) use of aspirin; Z79.899 Other long term (current) drug therapy
CPT/HCPCS: 45380; J2704; J7120